=== PATIENT | male | born 1960 | race Caucasian/White ===

== ENCOUNTER 2021-03-16 12:10 | Inpatient (IN) ==
[2021-03-16 13:45] LABS: Hematocrit (blood only) 39.3 % (42-52); Hemoglobin 13.4 g/dL (14.0-18.0); Mean Corpuscular Hemoglobin 31.2 pg (25-34); Mean Corpuscular Hgb Conc 34.1 g/dL (32-36); Mean Corpuscular Volume 91.4 fL (80-100); Mean Platelet Volume 10.6 fL (7.4-10.4); Platelet Count 236 K/uL (130-400); RDW Coefficient of Variation 16.9 % (11.5-14.5)
--- NOTE | 2021-03-16 13:49 | CT Scan Report ---
CT head/brain wo con Clinical Indication: MN ^B12 ^ams, hx dementia . Technique: Contiguous axial CT images of the head were acquired from the base of the skull to the elijah manda without intravenous contrast administration. Images were viewed in brain, subdural and bone windo ws. Automated dose lowering techniques and/or adjustment according to patient size were utilized for this exam. Comparison: None available at the time of this dictation. Findings: The ventricles, basal cisterns, and cerebral sulci are normal. There is no acute intracranial hemorrh age or evidence of acute territorial infarction. Neither mass effect, shift of the midline structures , nor abnormal extra-axial fluid collections are shown. Imaged portions of the paranasal sinuses and mastoid air cells are clear. The orbits appear normal. There are no acute fractures of the calvaria or scalp swelling. Impression: No acute intracranial hemorrhage, evidence of acute territorial infarction, or other acute intracrani al disease process. ACT 112: Negative or not required by law. Electronically signed by: David Mane M.D. 03/16/2021 1:47 PM
[2021-03-16 14:06] LABS: ALC (manual) 1.02 K/uL (1.2-3.4); ANC (manual) 8.18 K/uL (1.4-6.5); Eosinophils # (manual) 0.25 K/uL (0-0.5); Eosinophils % (manual) 2.6 %; Lymphocytes # (manual) 1.02 K/uL (1.2-3.4); Lymphocytes % (manual) 10.4 %; Monocytes # (manual) 0.34 K/uL (0.11-0.59); Monocytes % (manual) 3.5 %; Neutrophils # (manual) 8.18 K/uL (1.4-6.5); Neutrophils % (manual) 83.5 %; Target Cells 1+
[2021-03-16 14:09] LABS: Alanine Aminotransferase 158 U/L (12-78); Albumin Level 2.4 gm/dl (3.4-5.0); Aspartate Aminotransferase 331 U/L (15-37); BUN Creatinine Ratio 20.6 (10-20); Blood Urea Nitrogen 15 mg/dl (7-18); Calcium 8.9 mg/dl (8.5-10.1); Carbon Dioxide 23 mmol/L (21-32); Chloride 99 mmol/L (98-107); Est GFR (African American) 117.5 ml/min; Est GFR (Non-African American) 101.4 ml/min; Glucose 124 mg/dl (70-99); Lipase 208 U/L (73-393); Magnesium 2.2 mg/dl (1.8-2.4); Potassium 4.1 mmol/L (3.5-5.1); Sodium 131 mmol/L (136-145)
[2021-03-16 14:14] LABS: Albumin Globulin Ratio 0.5 (0.9-2); Alkaline Phosphatase 526 U/L (45-117); Globulin 4.5 gm/dl (2.5-4.0); Total Protein 6.9 gm/dl (6.4-8.2); Troponin I < 0.015 ng/ml (0-0.045)
--- NOTE | 2021-03-16 14:17 | Emergency Department Note ---
History of Present Illness General Chief complaint: Confusion Stated complaint: AMS Time Seen by Provider: 03/16/21 12:55 Source: patient Mode of arrival: EMS Limitations: altered mental status History of Present Illness Provider complaint: aggressive, ams Maximum Pain Intensity: 5 Associated symptoms: + denies other symptoms Treatments prior to arrival: none This is a 61 yo male who presents to the emergency department via EMS due to altered mental status and agitation. Per EMS patient was combative in the dentist office earlier today, went home, was becoming increasingly aggressive and family contacted 911. Patient does have a history of dementia and aggressive behavior. Patient calm and cooperative here on arrival. Patient states he is here "to get steak and eggs". Patient did know he was in the hospital and it was 2020, otherwise confused to questions of orientation and uncertain of today's events or why he is here. Patient denies any concern for pain, injury, or illness. Pt seen during a time of high acuity and national emergency pandemic while wearing PPE. Home Medications Medication Instructions Recorded Confirmed Type melatonin 1 mg tablet 1 mg PO HS #90 tab 03/13/21 03/13/21 Rx pimavanserin 34 mg capsule 34 mg PO DAILY 03/13/21 03/13/21 History (Nuplazid) Allergies Allergy/AdvReac Type Severity Reaction Status Date / Time haloperidol Allergy Severe LETHARGIC Unverified 03/13/21 15:12 propranolol Allergy Unknown Verified 03/13/21 15:12 alprazolam AdvReac Unknown Verified 03/13/21 15:12 clonazepam AdvReac Unknown Verified 03/13/21 15:12 donepezil AdvReac Unknown Verified 03/13/21 15:12 fluvoxamine AdvReac Unknown Verified 03/13/21 15:12 hydroxyzine AdvReac Unknown Verified 03/13/21 15:12 lorazepam AdvReac Unknown Verified 03/13/21 15:12 oxcarbazepine AdvReac Unknown Verified 03/13/21 15:12 risperidone AdvReac Unknown Verified 03/13/21 15:12 tramadol AdvReac Unknown Verified 03/13/21 15:12 trihexyphenidyl AdvReac Unknown Verified 03/13/21 15:12 Past Med/Surg History Medical History (Updated 03/17/21 @ 19:17 by Manasa Rocha DO) Acute encephalopathy Depression with anxiety Essential tremor Hilar mass Lewy body dementia with behavioral disturbance Metastatic disease Sleep disorder Tobacco abuse Surgical History S/P appendectomy S/P tonsillectomy and adenoidectomy Family History Sister Brain tumor Breast cancer Diabetes Mother Cancer Father Cancer Social History Smoking Status: Unknown if ever smoked Preferred Language: Turkish Communication Ability: Effective Tree 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 Required: No Current Living Situation: Family Feels Safe at Home: Yes Safety Concerns: Feels Safe At This Time Assistive Devices: None Review of Systems A total of 10 systems reviewed and were otherwise negative All systems reviewed & are unremarkable except as noted in HPI & below Physical Exam Vital Signs Vital Signs - 24 hr 03/16/21 12:29 03/16/21 12:32 03/16/21 14:16 Temperature 37 C Temperature Source Oral Pulse Rate 87 Pulse Rate [Apical] 88 75 Respiratory Rate 22 22 16 Respiratory Effort / Characteristics Non-Labored Respiratory Depth Normal Normal Blood Pressure 117/87 Blood Pressure Mean 97 Pulse Oximetry 97 98 98 Oxygen Delivery Method Room Air Sepsis Recent Fever Within 48 Hours No Sepsis New/Unexplained Change in Mental Status No Sepsis Action Taken by Nursing No Action Required GENERAL: alert, well appearing, well nourished, no distress, non-toxic EYE EXAM: normal conjunctiva, PERRL and EOM's grossly intact OROPHARYNX: no exudate, no erythema, lips, buccal mucosa, and tongue normal and mucous membranes are moist NECK: supple, no nuchal rigidity, no adenopathy, non-tender LUNGS: Clear to auscultation. Normal chest wall mechanics, no w/r/r HEART: no murmurs, S1 normal and S2 normal ABDOMEN: abdomen soft, non-tender, normo-active bowel sounds, no masses, no rebound or guarding. BACK: Back is symmetrical on inspection and there is no deformity, no midline tenderness, no CVA tenderness. SKIN: no rashes and no bruising UPPER EXTREMITIES: upper extremities are grossly normal. FROM, nml pulses b/l. LOWER EXTREMITIES: No pitting edema. FROM, nml pulses b/l. NEURO EXAM: Cooperative but confused, cranial nerves II-XII grossly intact, normal speech, no gross weakness of arms, no gross weakness of legs. Gross sensation intact. Course Course 1405: Discussed with Cristina. Hasn't been sleeping well for a week. Has an active dental infection, just started penicillin 500 mg this am at dentists office. She states due to his aggressive episodes they feel they are unable to care for him at this time. Administered Medications Heparin Sodium (Porcine) (Heparin Sod 5,000 Unit/0.5 Ml Vial) 5,000 units SQ Q12 MYRNA Stop: 04/15/21 21:55 Last Admin: 03/17/21 10:13 Dose: 5,000 units Documented by: [id number] Admin: 03/16/21 23:32 Dose: 5,000 units Documented by: [id number] Ampicillin Sodium/Sulbactam Sodium 1,500 mg/ Sodium Chloride 104 mls @ 200 mls/hr IV Q6H MYRNA; Protocol Stop: 03/26/21 18:59 Last Infusion: 03/17/21 17:47 Dose: 0 mls/hr Documented by: [id number] Admin: 03/17/21 17:04 Dose: 200 mls/hr Documented by: [id number] Infusion: 03/17/21 11:01 Dose: 0 mls/hr Documented by: [id number] Admin: 03/17/21 10:13 Dose: 200 mls/hr Documented by: [id number] Infusion: 03/17/21 02:41 Dose: 0 mls/hr Documented by: [id number] Admin: 03/17/21 02:09 Dose: 200 mls/hr Documented by: [id number] Infusion: 03/16/21 20:30 Dose: 0 mls/hr Documented by: [id number] Admin: 03/16/21 19:49 Dose: 200 mls/hr Documented by: [id number] Discontinued Medications Diphenhydramine HCl (Diphenhydramine 50 Mg/Ml Vial) 25 mg IV NOW STA Stop: 03/16/21 14:59 Last Admin: 03/16/21 15:05 Dose: 25 mg Documented by: [id number] Lorazepam (Ativan) 1 mg in 2 mls @ 2 mls/min IV NOW STA Stop: 03/16/21 15:26 Last Admin: 03/16/21 15:35 Dose: 2 mls/min Documented by: [id number] Lorazepam (Ativan) 1 mg in 2 mls @ 2 mls/min IV NOW STA Stop: 03/16/21 17:23 Last Admin: 03/16/21 17:38 Dose: 2 mls/min Documented by: [id number] Ampicillin Sodium/Sulbactam Sodium 1,500 mg/ Sodium Chloride 104 mls @ 200 mls/hr IV NOW ONE; Protocol Stop: 03/16/21 19:31 Last Admin: 03/16/21 19:51 Dose: Not Given Documented by: [id number] Lorazepam (Ativan) 1 mg in 2 mls @ 2 mls/min IV NOW STA Stop: 03/17/21 03:17 Last Admin: 03/17/21 04:29 Dose: 2 mls/min Documented by: [id number] Lorazepam (Ativan) 0.5 mg in 1 mls @ 1 mls/min IV NOW STA Stop: 03/17/21 13:44 Last Admin: 03/17/21 14:10 Dose: 1 mls/min Documented by: [id number] Lorazepam (Lorazepam 2 Mg/4 Ml Vial) Confirm Administered Dose 2 mg .ROUTE .STK- MED ONE Stop: 03/16/21 15:31 Last Admin: 03/16/21 15:35 Dose: Not Given Documented by: [id number] Medical Decision Making Differential Diagnosis Differential diagnoses includes but is not limited to toxic, metabolic, infectious, traumatic, cardiac, neurologic, hematologic, psychiatric and inflammatory etiologies. Medical Records Attestation: I reviewed the patient's medical records. Home Medications Current Medication List: was personally reviewed by me Laboratory Data Attestation: I reviewed the patient's lab results. Result diagrams: 03/17/21 06:06 03/17/21 06:06 Lab Results 03/16/21 03/16/21 03/16/21 Range/Units 13:20 13:20 13:20 WBC 9.80 (4.8-10.8) K/uL RBC 4.30 L (4.7-6.1) M/uL Hgb 13.4 L (14.0-18.0) g/dL Hct 39.3 L (42-52) % MCV 91.4 (80-100) fL MCH 31.2 (25-34) pg MCHC 34.1 (32-36) g/dL RDW Std Deviation 56.0 H (36.4-46.3) fL RDW Coeff of Steve 16.9 H (11.5-14.5) % Plt Count 236 (130-400) K/uL MPV 10.6 H (7.4-10.4) fL Neutrophils % (Manual) 83.5 % Lymphocytes % (Manual) 10.4 % Monocytes % (Manual) 3.5 % Eosinophils % (Manual) 2.6 % Neutrophils # (Manual) 8.18 H (1.4-6.5) K/uL Total Absolute Neuts 8.18 H (1.4-6.5) K/uL Lymphocytes # (Manual) 1.02 L (1.2-3.4) K/uL Total Abs Lymphocytes 1.02 L (1.2-3.4) K/uL Monocytes # (Manual) 0.34 (0.11-0.59) K/uL Eosinophils # (Manual) 0.25 (0-0.5) K/uL Target Cells 1+ PT 10.3 (9.0-12.0) Seconds INR 1.0 (0.9-1.1) Sodium 131 L (136-145) mmol/L Potassium 4.1 (3.5-5.1) mmol/L Chloride 99 (98-107) mmol/L Carbon Dioxide 23 (21-32) mmol/L Anion Gap 9.0 (3-11) BUN 15 (7-18) mg/dl Creatinine 0.72 (0.6-1.4) mg/dl Est Cr Clr Drug Dosing Not Reportable Est GFR ( Amer) 117.5 ml/min Est GFR (Non-Af Amer) 101.4 ml/min BUN/Creatinine Ratio 20.6 H (10-20) Glucose 124 H (70-99) mg/dl Calcium 8.9 (8.5-10.1) mg/dl Magnesium 2.2 (1.8-2.4) mg/dl Total Bilirubin 6.0 H (0.2-1) mg/dl AST 331 H (15-37) U/L ALT 158 H (12-78) U/L Alkaline Phosphatase 526 H (45-117) U/L Ammonia (11-32) umol/L Troponin I < 0.015 (0-0.045) ng/ml Total Protein 6.9 (6.4-8.2) gm/dl Albumin 2.4 L (3.4-5.0) gm/dl Globulin 4.5 H (2.5-4.0) gm/dl Albumin/Globulin Ratio 0.5 L (0.9-2) Lipase 208 (73-393) U/L TSH 1.180 (0.300-4.500) uIu/ml Urine Color Urine Appearance (Clear) Urine pH (4.5-7.5) Ur Specific Wellman (1.000-1.030) Urine Protein (Negative) Urine Glucose (UA) (Negative) Urine Ketones (Negative) Urine Blood (Negative) Urine Nitrite (Negative) Urine Bilirubin (Negative) Urine Urobilinogen (Negative) Ur Leukocyte Esterase (Negative) COVID-19 Eval Order SARS-CoV-2 (PCR) (Negative) 03/16/21 03/16/21 03/16/21 Range/Units 13:50 18:08 18:08 WBC (4.8-10.8) K/uL RBC (4.7-6.1) M/uL Hgb (14.0-18.0) g/dL Hct (42-52) % MCV (80-100) fL MCH (25-34) pg MCHC (32-36) g/dL RDW Std Deviation (36.4-46.3) fL RDW Coeff of Steve (11.5-14.5) % Plt Count (130-400) K/uL MPV (7.4-10.4) fL Neutrophils % (Manual) % Lymphocytes % (Manual) % Monocytes % (Manual) % Eosinophils % (Manual) % Neutrophils # (Manual) (1.4-6.5) K/uL Total Absolute Neuts (1.4-6.5) K/uL Lymphocytes # (Manual) (1.2-3.4) K/uL Total Abs Lymphocytes (1.2-3.4) K/uL Monocytes # (Manual) (0.11-0.59) K/uL Eosinophils # (Manual) (0-0.5) K/uL Target Cells PT (9.0-12.0) Seconds INR (0.9-1.1) Sodium (136-145) mmol/L Potassium (3.5-5.1) mmol/L Chloride (98-107) mmol/L Carbon Dioxide (21-32) mmol/L Anion Gap (3-11) BUN (7-18) mg/dl Creatinine (0.6-1.4) mg/dl Est Cr Clr Drug Dosing Est GFR ( Amer) ml/min Est GFR (Non-Af Amer) ml/min BUN/Creatinine Ratio (10-20) Glucose (70-99) mg/dl Calcium (8.5-10.1) mg/dl Magnesium (1.8-2.4) mg/dl Total Bilirubin (0.2-1) mg/dl AST (15-37) U/L ALT (12-78) U/L Alkaline Phosphatase (45-117) U/L Ammonia 46.1 H (11-32) umol/L Troponin I (0-0.045) ng/ml Total Protein (6.4-8.2) gm/dl Albumin (3.4-5.0) gm/dl Globulin (2.5-4.0) gm/dl Albumin/Globulin Ratio (0.9-2) Lipase (73-393) U/L TSH (0.300-4.500) uIu/ml Urine Color Dark Yellow Urine Appearance Clear (Clear) Urine pH 6.0 (4.5-7.5) Ur Specific Wellman 1.015 (1.000-1.030) Urine Protein Negative (Negative) Urine Glucose (UA) Negative (Negative) Urine Ketones Negative (Negative) Urine Blood Negative (Negative) Urine Nitrite Negative (Negative) Urine Bilirubin 2+ H (Negative) Urine Urobilinogen Positive H (Negative) Ur Leukocyte Esterase Negative (Negative) COVID-19 Eval Order Covid19 at [facility] SARS-CoV-2 (PCR) (Negative) 03/16/21 Range/Units 18:08 WBC (4.8-10.8) K/uL RBC (4.7-6.1) M/uL Hgb (14.0-18.0) g/dL Hct (42-52) % MCV (80-100) fL MCH (25-34) pg MCHC (32-36) g/dL RDW Std Deviation (36.4-46.3) fL RDW Coeff of Steve (11.5-14.5) % Plt Count (130-400) K/uL MPV (7.4-10.4) fL Neutrophils % (Manual) % Lymphocytes % (Manual) % Monocytes % (Manual) % Eosinophils % (Manual) % Neutrophils # (Manual) (1.4-6.5) K/uL Total Absolute Neuts (1.4-6.5) K/uL Lymphocytes # (Manual) (1.2-3.4) K/uL Total Abs Lymphocytes (1.2-3.4) K/uL Monocytes # (Manual) (0.11-0.59) K/uL Eosinophils # (Manual) (0-0.5) K/uL Target Cells PT (9.0-12.0) Seconds INR (0.9-1.1) Sodium (136-145) mmol/L Potassium (3.5-5.1) mmol/L Chloride (98-107) mmol/L Carbon Dioxide (21-32) mmol/L Anion Gap (3-11) BUN (7-18) mg/dl Creatinine (0.6-1.4) mg/dl Est Cr Clr Drug Dosing Est GFR ( Amer) ml/min Est GFR (Non-Af Amer) ml/min BUN/Creatinine Ratio (10-20) Glucose (70-99) mg/dl Calcium (8.5-10.1) mg/dl Magnesium (1.8-2.4) mg/dl Total Bilirubin (0.2-1) mg/dl AST (15-37) U/L ALT (12-78) U/L Alkaline Phosphatase (45-117) U/L Ammonia (11-32) umol/L Troponin I (0-0.045) ng/ml Total Protein (6.4-8.2) gm/dl Albumin (3.4-5.0) gm/dl Globulin (2.5-4.0) gm/dl Albumin/Globulin Ratio (0.9-2) Lipase (73-393) U/L TSH (0.300-4.500) uIu/ml Urine Color Urine Appearance (Clear) Urine pH (4.5-7.5) Ur Specific Wellman (1.000-1.030) Urine Protein (Negative) Urine Glucose (UA) (Negative) Urine Ketones (Negative) Urine Blood (Negative) Urine Nitrite (Negative) Urine Bilirubin (Negative) Urine Urobilinogen (Negative) Ur Leukocyte Esterase (Negative) COVID-19 Eval Order SARS-CoV-2 (PCR) NEGATIVE (Negative) Imaging Data Radiologist's Impression: Head CT 03/16/21 13:10 CT head/brain wo con Clinical Indication: MN ^B12 ^ams, hx dementia . Technique: Contiguous axial CT images of the head were acquired from the base of the skull to the vertex without intravenous contrast administration. Images were viewed in brain, subdural and bone windows. Automated dose lowering techniques and/or adjustment according to patient size were utilized for this exam. Comparison: None available at the time of this dictation. Findings: The ventricles, basal cisterns, and cerebral sulci are normal. There is no acute intracranial hemorrhage or evidence of acute territorial infarction. Neither mass effect, shift of the midline structures, nor abnormal extra-axial fluid collections are shown. Imaged portions of the paranasal sinuses and mastoid air cells are clear. The o rbits appear normal. There are no acute fractures of the calvaria or scalp swelling. Impression: No acute intracranial hemorrhage, evidence of acute territorial infarction, or other acute intracranial disease process. ACT 112: Negative or not required by law. Electronically signed by: David Mane M.D. 03/16/2021 1:47 PM US abdomen limited HISTORY: 61 years-old Male abn lft's acutely elevated LFTs COMPARISON: None TECHNIQUE: Multiple real-time sonographic images of the abdominal right upper q uadrant were obtained assessing grayscale appearance and color flow FINDINGS: Study is limited secondary to patient movement throughout the study. The visualized pancreas is unremarkable. No pancreatic ductal dilation. Diffusely heterogeneous liver with suggestion of innumerable lesions including a discrete 2 cm lesion of the left hepatic lobe on image 10. Associated marginal nodularity of the liver. Contracted gallbladder with a shadowing gallstone noted at the fundus. Bladder wall thickening is likely secondary to partial distention. Trace pericholecystic fluid. Common bile duct measures 7 mm. The imaged right kidney is unremarkable without hydronephrosis. IMPRESSION: 1. Diffuse heterogeneity of the liver with marginal nodularity. 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 Cirrhotic liver with fibrotic changes considered less likely. Nonemergent oncologic follow-up is needed. 2. Contracted gallbladder with cholelithiasis. ACT 112: Negative or not required by law. The above report was generated using voice recognition software. It may contain grammatical, syntax or spelling errors. Electronically signed by: Peyman Maradiaga M.D. 03/16/2021 5:29 PM MDM Narrative Patient presented due to acute agitation and confusion in the setting of a history of Lewy body dementia with a prior history of behavioral disturbances also. Limited information as the patient cannot provide any history, the patient's ex- who helps to care for him stated that they were concerned that they can no longer care for him at home. She had not noticed any other recent changes in him until he became aggressive at the dentist earlier this morning. Patient was started on antibiotics. Patient did require Ativan in the emergency department to help him remain calm and follow instructions. Patient hemodynamically stable. Labs revealed abnormal LFTs of unclear etiology. No prior history and review of EMR. Patient sent for ultrasound which showed an abnormal liver with questionable metastatic disease. Due to need for additional evaluation of his altered mentation and abnormal LFTs and liver imaging, case discussed with hospitalist for additional evaluation and management. Ammonia added but was still pending at the time of my discussion with the hospitalist. They intend to add additional labs as well. CT of the head unremarkable. An order was placed for continuous cardiac monitoring. The monitor shows a rate of _80_ with __normal sinus rhythm. Impression & Plan Altered mental status, Elevated liver enzymes, Lewy body dementia with behavioral disturbance Discharge Plan Visit Data Chief Complaint: Confusion Stated Complaint: AMS ED Provider: Manasa Rocha Discharge Problem: Altered mental status, Elevated liver enzymes, Lewy body dementia with behavioral disturbance Patient Disposition: Admitted As Inpatient Discharge Instructions Interventions: ED Discharge Assessment Last Done: 03/16/21 21:16 Discharge Problem: Altered mental status Qualifiers: Altered mental status type: unspecified Qualified Code(s): R41.82 - Altered mental status, unspecified
[2021-03-16 14:45] LABS: Appearance Urine Clear (Clear); Blood Urine Negative (Negative); Color Urine Dark Yellow; Glucose Urine UA Negative (Negative); Ketones Urine Negative (Negative); Leukocyte Esterase Urine Negative (Negative); Nitrite Urine Negative (Negative); Protein Urine Negative (Negative); Specific Gravity Urine 1.015 (1.000-1.030); Urobilinogen Urine Positive (Negative)
[2021-03-16 14:53] LABS: Bilirubin Urine 2+ (Negative)
[2021-03-16] MEDS ORDERED: diphenhydrAMINE 50 MG/ML VIAL IV STA (14:58)
[2021-03-16] MEDS ORDERED: LORazepam 1 MG/2 ML VIAL IV STA ×2 (15:25→17:22)
[2021-03-16] MEDS ORDERED: LORazepam 2 MG/4 ML VIAL ONE (15:30)
--- NOTE | 2021-03-16 17:30 | Ultrasound Report ---
US abdomen limited HISTORY: 61 years-old Male abn lft's acutely elevated LFTs COMPARISON: None TECHNIQUE: Multiple real-time sonographic images of the abdominal right upper quadrant were obtained assessing grayscale appearance and color flow FINDINGS: Study is limited secondary to patient movement throughout the study. The visualized pancreas is unremarkable. No pancreatic ductal dilation. Diffusely heterogeneous liver with suggestion of innumerable lesions including a discrete 2 cm lesion of the left hepatic lobe on image 10. Associated marginal nodularity of the liver. Contracted gallbladder with a shadowing gallstone noted at the fundus. Bladder wall thickening is lik nina secondary to partial distention. Trace pericholecystic fluid. Common bile duct measures 7 mm. The imaged right kidney is unremarkable without hydronephrosis. IMPRESSION: 1. Diffuse heterogeneity of the liver with marginal nodularity. Findings are suspicious for multifoca l hepatic metastasis with pseudocirrhosis. Cirrhotic liver with fibrotic changes considered less like ly. Nonemergent oncologic follow-up is needed. 2. Contracted gallbladder with cholelithiasis. ACT 112: Negative or not required by law. The above report was generated using voice recognition software. It may contain grammatical, syntax o r spelling errors. Electronically signed by: Peyman Maradiaga M.D. 03/16/2021 5:29 PM
[2021-03-16] MEDS ORDERED: AMPICILLIN/SULBACTAM SOD 1,500 MG in 0.9 % SODIUM CHLORIDE 100 ML IV ONE (19:00)
--- NOTE | 2021-03-16 19:45 | History & Physical Report ---
Date of Service March 16, 2021 Assessment & Plan (1) Elevated liver enzymes: Plan: Presumed acute elevation of liver enzymes DDX: Acute liver failure vs. metastatic liver cancer with unknown primary vs. viral hepatitis vs. drug induced failure vs. biliary - INR- 1.0 - Tylenol level- unable to be performed secondary to icterus - normal glycemia, HCO3 normal, ammonia mildly elevated 46, albumin low at 2.4 - AST ALT elevated 2:1 does not drink, elevated alphos, total bilirubin 6.0 - Grade I-II encephalopathy with mild jaundice - Viral labs to include hepatitis A,B,C- ceruloplasmin, AFP, lipids and ferritin - GI consult placed - liver ultrasound performed- see above results - MELD 18 - CT chest abd pelvis w/o contrast if patient able to lay still and tolerate without further sedation (2) Metabolic encephalopathy: Plan: Appears Grade I encephalopathy at baseline - Ammonia 46 not acute to treat at this time - Likely related to both Lewy body dementia and elevated liver enzymes - Patient is more calm at this time - Haldol PRN (3) Abnormal CXR: Plan: Concern for primary oncological process remains at top of diagnostics- consult pulmonary likely 1. Nodular opacities of the left midlung measure up to 1.5 cm. 2. Bilateral hilar enlargement suggestive of adenopathy. Correlation with follow-up chest CT recommended. (4) Tobacco dependence: Plan: Current smoker 2-3 packs per day for many years per X- - CXR as above (5) Lewy body dementia with behavioral disturbance: Plan: As above- - Previously yon Memantine with planned switch to Nuplazid - Neurology consult may provide benefit after initial workup for the above completed (6) Infected tooth: Plan: Unable to assess- reportedly given ABX from dentist today - Unasyn 1.5 GM now then q6 - ? 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 Patient was brought in today via EMS from home secondary to delirium, combativeness. The patient initially went to the dentist for concern for an infected tooth, upon radiologically imaging he became combative, argumentative. He was given a prescription for antibiotics per his x- but did not get them filled or started. Per the X- the patient has been becoming more combative and delirious over the past 2 weeks he has been incontinent of stool and urine as well. He has been having more hallucinations and seeing things around the house and in his food. This is consistent with his neurology appointment on 03/13/21. She thinks he may have a more yellow tint to his skin and eyes when directly asked about this. Overall the patient does not have a PCP, follows with [facility] neurology for Lewy body dementia with hallucinations. He was to start Nuplazid which he has not started yet per the as he was waiting for his labs to return. In the EMD the patient had routine lab draws performed which revealed which appears to be an acute elevation of his LFTs (no comparison since 2016)- AST 331, ALT 158, ALK phos 526, Ammonia 46.1, lipase normal. He subsequently underwent a ultrasound of the abdomen and pelvis- Diffuse heterogeneity of the liver with marginal nodularity. 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 Cirrhotic liver with fibrotic changes- also interpreted as a contracted gallbladder with cholelithiasis and trace pericholecystic fluid. CBD 7mm and discrete 2cm lesion of the left hepatic lobe. Upon return from CT scan patient became combative and delirious and was given Benadryl 25mg IV, Lorazepam 4 mg total. Patient did wake up for exam, he is encephalopathic but was cooperative. He does endorse abdominal pain in upper quadrants bilaterally, and unable to look at dentition. No lesions noted on lower legs or chest. Patient will be admitted for evaluation of his liver enzymes, will place on Unasyn for reported infected tooth, will send off hepatitis panel and EBV, CMV, CA 19. Obtain CXR for initial screening of lung broussard further imaging as makayla anted. Will consult gastroenterology. Unsure of his bipoloar history as this was noted in neurology note as remote history and he is not on any medications. COVID test on admission was: NEGATIVE Allergies Allergy/AdvReac Type Severity Reaction Status Date / Time haloperidol Allergy Severe LETHARGIC Unverified 03/13/21 15:12 propranolol Allergy Unknown Verified 03/13/21 15:12 alprazolam AdvReac Unknown Verified 03/13/21 15:12 clonazepam AdvReac Unknown Verified 03/13/21 15:12 donepezil AdvReac Unknown Verified 03/13/21 15:12 fluvoxamine AdvReac Unknown Verified 03/13/21 15:12 hydroxyzine AdvReac Unknown Verified 03/13/21 15:12 lorazepam AdvReac Unknown Verified 03/13/21 15:12 oxcarbazepine AdvReac Unknown Verified 03/13/21 15:12 risperidone AdvReac Unknown Verified 03/13/21 15:12 tramadol AdvReac Unknown Verified 03/13/21 15:12 trihexyphenidyl AdvReac Unknown Verified 03/13/21 15:12 Home Medications Medication Instructions Recorded Confirmed Type melatonin 1 mg tablet 1 mg PO HS #90 tab 03/13/21 03/13/21 Rx pimavanserin 34 mg capsule 34 mg PO DAILY 03/13/21 03/13/21 History (Nuplazid) Past Med/Surg History Medical History (Updated 03/17/21 @ 19:31 by Rika Lee PA-C) Acute encephalopathy Depression with anxiety Essential tremor Hilar mass Lewy body dementia with behavioral disturbance Metastatic disease Sleep disorder Tobacco abuse Surgical History S/P appendectomy S/P tonsillectomy and adenoidectomy Family History Sister Brain tumor Breast cancer Diabetes Mother Cancer Father Cancer Social History Smoking Status: Unknown if ever smoked Preferred Language: Iraqi Communication Ability: Effective 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 Current Living Situation: Family Feels Safe at Home: Yes Safety Concerns: Feels Safe At This Time Assistive Devices: Glasses Review of Systems Review of Systems: Unable to perform secondary to sedation - information obtained by X- via phone REVIEW OF SYSTEMS: Constitutional:(+) hallucinations, delirium Eyes: No diplopia, no worsening or blurred vision ENT: (+) tooth pain, normal hearing Respiratory: No cough, sputum, dyspnea at rest or on exertion Cardiovascular: No chest pain, tightness or palpitations Abdomen: No pain, nausea, vomiting, diarrhea or constipation Musculoskeletal: No joint pain, calf pain, swelling Neurologic: (+) short term memory, confusion, distractions Psychiatric: (+) anxiety Skin: No rash or itch Physical Exam Physical Exam: PHYSICAL EXAM: General: sedated, follows simple commands Head: Normocephalic, atraumatic ENT: PERRLA, mild scleral icterus Neuro: AAO x1 to person , speech disoriented, strength intact bilaterally 5/5, withdraws to pain Chest: equal rise and fall of the chest, no accessory muscle use, expiratory wheeze on auscultation, on room air, Cardiac: Regular rate and rhythm, skin warm dry, cap refill <3 seconds, peripheral pulses +2 no JVD, no murmur, no edema GI: liver enlarged, patient withdraws with palpation to upper abdomen, soft throughout : Spontaneously voiding, UA negative Psych: sedated disoriented, encephalopathic Skin: no rash or erythema Results & Data Results & Data ([facility]) Vital Signs (Past 12 Hours) Vital Signs Temp Pulse Pulse Resp BP BP Pulse Ox 03/16/21 18:17 75 15 139/83 98 03/16/21 14:16 75 16 98 03/16/21 12:32 88 22 98 03/16/21 12:29 37 C 87 22 117/87 97 Laboratory Results Abnormal lab results 03/16/21 03/16/21 03/16/21 Range/Units 13:20 13:20 13:50 RBC 4.30 L (4.7-6.1) M/uL Hgb 13.4 L (14.0-18.0) g/dL Hct 39.3 L (42-52) % RDW Std Deviation 56.0 H (36.4-46.3) fL RDW Coeff of Steve 16.9 H (11.5-14.5) % MPV 10.6 H (7.4-10.4) fL Neutrophils # (Manual) 8.18 H (1.4-6.5) K/uL Total Absolute Neuts 8.18 H (1.4-6.5) K/uL Lymphocytes # (Manual) 1.02 L (1.2-3.4) K/uL Total Abs Lymphocytes 1.02 L (1.2-3.4) K/uL Sodium 131 L (136-145) mmol/L BUN/Creatinine Ratio 20.6 H (10-20) Glucose 124 H (70-99) mg/dl Total Bilirubin 6.0 H (0.2-1) mg/dl AST 331 H (15-37) U/L ALT 158 H (12-78) U/L Alkaline Phosphatase 526 H (45-117) U/L Ammonia (11-32) umol/L Albumin 2.4 L (3.4-5.0) gm/dl Globulin 4.5 H (2.5-4.0) gm/dl Albumin/Globulin Ratio 0.5 L (0.9-2) Urine Bilirubin 2+ H (Negative) Urine Urobilinogen Positive H (Negative) 03/16/21 Range/Units 18:08 RBC (4.7-6.1) M/uL Hgb (14.0-18.0) g/dL Hct (42-52) % RDW Std Deviation (36.4-46.3) fL RDW Coeff of Steve (11.5-14.5) % MPV (7.4-10.4) fL Neutrophils # (Manual) (1.4-6.5) K/uL Total Absolute Neuts (1.4-6.5) K/uL Lymphocytes # (Manual) (1.2-3.4) K/uL Total Abs Lymphocytes (1.2-3.4) K/uL Sodium (136-145) mmol/L BUN/Creatinine Ratio (10-20) Glucose (70-99) mg/dl Total Bilirubin (0.2-1) mg/dl AST (15-37) U/L ALT (12-78) U/L Alkaline Phosphatase (45-117) U/L Ammonia 46.1 H (11-32) umol/L Albumin (3.4-5.0) gm/dl Globulin (2.5-4.0) gm/dl Albumin/Globulin Ratio (0.9-2) Urine Bilirubin (Negative) Urine Urobilinogen (Negative) Diagnostic Findings Head CT 03/16/21 13:10 CT head/brain wo con Clinical Indication: MN ^B12 ^ams, hx dementia . Technique: Contiguous axial CT images of the head were acquired from the base of the skull to the vertex without intravenous contrast administration. Images were viewed in brain, subdural and bone windows. Automated dose lowering techniques and/or adjustment according to patient size were utilized for this exam. Comparison: None available at the time of this dictation. Findings: The ventricles, basal cisterns, and cerebral sulci are normal. There is no acute intracranial hemorrhage or evidence of acute territorial infarction. Neither mass effect, shift of the midline structures, nor abnormal extra-axial fluid collections are shown. Imaged portions of the paranasal sinuses and mastoid air cells are clear. The orbits appear normal. There are no acute fractures of the calvaria or scalp swelling. Impression: No acute intracranial hemorrhage, evidence of acute territorial infarction, or other acute intracranial disease process. ACT 112: Negative or not required by law. Electronically signed by: David Mane M.D. 03/16/2021 1:47 PM Abdomen Ultrasound 03/16/21 14:18 US abdomen limited HISTORY: 61 years-old Male abn lft's acutely elevated LFTs COMPARISON: None TECHNIQUE: Multiple real-time sonographic images of the abdominal right upper quadrant were obtained assessing grayscale appearance and color flow FINDINGS: Study is limited secondary to patient movement throughout the study. The visualized pancreas is unremarkable. No pancreatic ductal dilation. Diffusely heterogeneous liver with suggestion of innumerable lesions including a discrete 2 cm lesion of the left hepatic lobe on image 10. Associated marginal nodularity of the liver. Contracted gallbladder with a shadowing gallstone noted at the fundus. Bladder wall thickening is likely secondary to partial distention. Trace pericholecystic fluid. Common bile duct measures 7 mm. The imaged right kidney is unremarkable without hydronephrosis. IMPRESSION: 1. Diffuse heterogeneity of the liver with marginal nodularity. 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 Cirrhotic liver with fibrotic changes considered less likely. Nonemergent oncologic follow-up is needed. 2. Contracted gallbladder with cholelithiasis. ACT 112: Negative or not required by law. The above report was generated using voice recognition software. It may contain grammatical, syntax or spelling errors. Electronically signed by: Peyman Maradiaga M.D. 03/16/2021 5:29 PM Medications Administered Home Medications melatonin 1 mg tablet 1 mg PO HS #90 tab 03/13/21 [Rx Confirmed 03/13/21] pimavanserin 34 mg capsule (Nuplazid) 34 mg PO DAILY 03/13/21 [History Confirmed 03/13/21] Active Medications Ampicillin Sodium/Sulbactam Sodium 1,500 mg/ Sodium Chloride 104 mls @ 200 mls/hr IV Q6H MYRNA; Protocol Stop: 03/26/21 18:59 Last Admin: 03/16/21 19:49 Dose: 200 mls/hr Documented by: Ampicillin Sodium/Sulbactam Sodium 1,500 mg/ Sodium Chloride 104 mls @ 200 mls/hr IV Q6H MYRNA; Protocol Stop: 03/26/21 18:59 Last Admin: 03/16/21 19:49 Dose: 200 mls/hr Documented by: [id number] Discontinued Medications Diphenhydramine HCl (Diphenhydramine 50 Mg/Ml Vial) 25 mg IV NOW STA Stop: 03/16/21 14:59 Last Admin: 03/16/21 15:05 Dose: 25 mg Documented by: [id number] Lorazepam (Ativan) 1 mg in 2 mls @ 2 mls/min IV NOW STA Stop: 03/16/21 15:26 Last Admin: 03/16/21 15:35 Dose: 2 mls/min Documented by: [id number] Lorazepam (Ativan) 1 mg in 2 mls @ 2 mls/min IV NOW STA Stop: 03/16/21 17:23 Last Admin: 03/16/21 17:38 Dose: 2 mls/min Documented by: [id number] Ampicillin Sodium/Sulbactam Sodium 1,500 mg/ Sodium Chloride 104 mls @ 200 mls/hr IV NOW ONE; Protocol Stop: 03/16/21 19:31 Last Admin: 03/16/21 19:51 Dose: Not Given Documented by: [id number] Lorazepam (Lorazepam 2 Mg/4 Ml Vial) Confirm Administered Dose 2 mg .ROUTE .STK- MED ONE Stop: 03/16/21 15:31 Last Admin: 03/16/21 15:35 Dose: Not Given Documented by: [id number] ECG Additional Comments: Normal sinus rhythm Normal ECG When compared with ECG of 22-AUG-2015 16:16, No significant change was found Code Status & VTE Plan Code Status CODE: FULL VTE: SCDs, Heparin 5000 sub q q12 VTE Prophylaxis Plan VTE Prophylaxis will be ordered: Yes Supervising Physician Co-Signing Physician Notes Attending addendum: I have physically seen this patient, have supervised the medical residents activities, and agree with the H&P unless as otherwise noted. Assessment and Plan: Elevated liver enzymes- Abnormal LFT work-up ordered Liver metastases/pseudocirrhosis noted on CT Meld score 18 Consult gastroenterology Metabolic encephalopathy- Grade 1 noted at baseline Ammonia level 46 not likely causative and not need to be treated this time Combination of Lewy body dementia and because of liver enzyme abnormalities, may be aggravated by dental infection as well Infected tooth- Unasyn 1.5 g IV every 6 hours Remaining orders and notations as noted PG Care Time/CCT Total # of Minutes Spent Total Time Spent with Patient: Total time spent is greater than 50% in coordination of care (as documented) at patient's floor/unit and/or counseling patient: Coding Level of Care Code 58451 Initial Inpt Care Lvl 3 Diagnoses Lewy body dementia with behavioral disturbance G31.83; F02.81 Elevated liver enzymes R74.8 Metabolic encephalopathy G93.41 Tobacco dependence F17.200 Infected tooth K04.7 Abnormal CXR R93.89
[2021-03-16] MEDS: AMPICILLIN/SULBACTAM SOD 1,500 MG in 0.9 % SODIUM CHLORIDE 100 ML IV SCH (19:49)
--- NOTE | 2021-03-16 21:00 | XRay Report ---
XR chest 1V portable HISTORY: 61 years-old Male evaluate for pulm nodule/cancer- admission acute shortness of breath COMPARISON: Chest radiograph 08/22/2015 TECHNIQUE: Portable AP view of the chest FINDINGS: Azygos lobe and fissure. Mild cardiomegaly. Moderate bilateral hilar enlargement. Left perihilar nodu lar opacities measure up to 1.5 cm. No pneumothorax, pleural effusion or overt pulmonary edema. Degen erative changes of the right and left shoulder. IMPRESSION: 1. Nodular opacities of the left midlung measure up to 1.5 cm. 2. Bilateral hilar enlargement suggestive of adenopathy. Correlation with follow-up chest CT recommen ded. ACT 112: Negative or not required by law. The above report was generated using voice recognition software. It may contain grammatical, syntax o r spelling errors. Electronically signed by: Peyman Maradiaga M.D. 03/16/2021 8:59 PM
[2021-03-16 21:18] LABS: Prothrombin Time 10.3 Seconds (9.0-12.0)
[2021-03-16] MEDS ORDERED: HALOPERIDOL LACTATE 5 MG/ML 1 ML VIAL IM PRN (21:56)
[2021-03-16] MEDS: HEPARIN SOD 5,000 UNIT/0.5 ML VIAL SQ SCH (23:32)
[2021-03-17] MEDS: AMPICILLIN/SULBACTAM SOD 1,500 MG in 0.9 % SODIUM CHLORIDE 100 ML IV SCH ×3 (02:09→17:04)
[2021-03-17] MEDS ORDERED: LORazepam 1 MG/2 ML VIAL IV STA (03:16)
[2021-03-17 06:32] LABS: Hematocrit (blood only) 37.7 % (42-52); Hemoglobin 12.8 g/dL (14.0-18.0); Mean Corpuscular Hemoglobin 31.4 pg (25-34); Mean Corpuscular Volume 92.6 fL (80-100); Mean Platelet Volume 10.6 fL (7.4-10.4); Platelet Count 220 K/uL (130-400); RDW Standard Deviation 58.1 fL (36.4-46.3); Red Blood Count 4.07 M/uL (4.7-6.1); White Blood Count 8.55 K/uL (4.8-10.8)
[2021-03-17 06:43] LABS: Prothrombin Time 10.5 Seconds (9.0-12.0)
[2021-03-17 07:00] LABS: ANC (manual) 6.52 K/uL (1.4-6.5); Alanine Aminotransferase 150 U/L (12-78); Albumin Level 2.1 gm/dl (3.4-5.0); Aspartate Aminotransferase 316 U/L (15-37); BUN Creatinine Ratio 17.6 (10-20); Basophils # (manual) 0.15 K/uL (0-0.2); Basophils % (manual) 1.8 %; Blood Urea Nitrogen 14 mg/dl (7-18); Calcium 8.1 mg/dl (8.5-10.1); Carbon Dioxide 23 mmol/L (21-32); Chloride 106 mmol/L (98-107); Eosinophils # (manual) 0.08 K/uL (0-0.5); Eosinophils % (manual) 0.9 %; Est GFR (African American) 113.1 ml/min; Est GFR (Non-African American) 97.6 ml/min; Glucose 171 mg/dl (70-99); Magnesium 2.3 mg/dl (1.8-2.4); Neutrophils # (manual) 6.52 K/uL (1.4-6.5); Neutrophils % (manual) 76.3 %; Potassium 3.9 mmol/L (3.5-5.1); Sodium 136 mmol/L (136-145)
[2021-03-17 07:20] LABS: Albumin Globulin Ratio 0.5 (0.9-2); Alkaline Phosphatase 485 U/L (45-117); Bilirubin Direct 4.1 mg/dl (0-0.2); Bilirubin,Total 4.4 mg/dl (0.2-1); Chol HDL Ratio 23; Cholesterol 228 mg/dl (0-200); Globulin 4.2 gm/dl (2.5-4.0); HDL Cholesterol 10 mg/dl; LDL Cholesterol Calculated 174 mg/dl; Total Protein 6.3 gm/dl (6.4-8.2); Triglycerides 221 mg/dl (0-150); VLDL Cholesterol 44 mg/dl
--- NOTE | 2021-03-17 08:45 | Hospitalist Progress Note ---
Date of Service March 17, 2021 Assessment & Plan (1) Metastatic disease: Plan: Admitted with elevated LFT/liver failure, presumed acute elevation given patient without PCP and rarely seeks out medical attention. Follows Neuro for hx Lewy Body Dementia, most recently seen 10/4 Lives with ex- and they were working on getting placement for worsening confusion/hallucinations Unfortunately, imaging consistent with diffuse metastatic disease, likely pulmonary as primary CT Chest IMPRESSION: 1. A 2.2 cm peripheral spiculated nodule within the left upper lobe with associated mediastinal, left hilar, and left supraclavicular lymphadenopathy. This is consistent with a primary bronchogenic malignancy with metastatic lymphadenopathy. 2. The masslike lymphadenopathy in the left hilum results in occlusion of the left upper lobe segmental bronchus. --> (thankfully no respiratory compromise and on room air currently) 3. A small lytic/destructive metastatic lesion involving the right T3 pedicle and transverse process. 4. A mild superior endplate acute compression fracture at L1. This could be pathologic. 5. Please refer to the same day abdomen and pelvis CT for further evaluation of the hepatic metastases. CTA/P IMPRESSION: 1. Innumerable hepatic lesions resulting in near complete replacement of the normal hepatic parenchyma, hepatomegaly, and pseudocirrhosis. This most likely represents diffuse metastatic disease. 2. Mild focal circumferential thickening within the distal sigmoid colon with an associated inflamed diverticulum. This could represent an acute diverticulitis. However, an underlying colonic mass would be the diagnosis of exclusion. This results in a partial large bowel obstruction with the transition point at this location. Follow-up colonoscopy recommended for further evaluation. 3. There is also mild thickening of the distal esophagus which favors a mild esophagitis. However, this should also be assessed with endoscopy to exclude the less likely possibility of an esophageal lesion. 4. Mild distal paraesophageal, gastrohepatic, and periportal lymphadenopathy. This also likely represents metastatic disease. 5. A 1.7 cm left adrenal gland nodule. GI consulted -- plans initially for ERCP but no CBD dilation and cancelled Pulmonary consulted --> rec radiology for US guided biopsy for supraclavicular node which would stage IV and get diagnosis --> performed this afternoon Hematology consulted Palliative consulted --MELD 18 Sounds as though ex- would agree more comfortable but not able to contact today and patient remains level I. Unsure if has living will/POA as paperwork not filled out --> Told palliative team children would be taking her camping this weekend as she needed a break and unable to stay with patient given progression towards comfort if that is ultimately decided Cancer markers/CMV/EBV etc pending as ordered on admission but likely 2nd to above Switched to Zosyn (on Unasyn for suspected dental infection as well but possible diverticulitis vs colonic mass as above and broadened coverage) Ativan IVP prn agitation/discomfort --> Would avoid Haldol in patient with Lewy Body Dementia and this was discontinued Does have evidence of bony disease so if painful would suggest morphine --> denied pain when asked but tender to RUQ on exam -->? any palliative radiation in future for bony pain IVF for supportive care as hasn't eaten -- will try some clears. does have + BS. monitor Continue to monitor Will need placement given above and ex not able to currently take care of her (2) Elevated liver enzymes: Plan: 2nd to above TB 6.0--> 4.4 AST 331--> 150 ALT 158--> 150 ALP 526--> 485 Ammonia 46 (3) Metabolic encephalopathy: Plan: as above Ammonia 46 and no lactulose given at this time. will consider dose in am if agreeable/worsening Ativan prn as above (4) Abnormal CXR: Plan: Concern for primary oncological process remains at top of diagnostics- consult pulmonary likely 1. Nodular opacities of the left midlung measure up to 1.5 cm. 2. Bilateral hilar enlargement suggestive of adenopathy. Correlation with follow-up chest CT recommended. CT chest as above with evidence for primary lung ca, ?small cell Biopsy done by radiology today -- pathology pending (5) Tobacco dependence: Plan: Current smoker 2-3 packs per day for many years per X- - CXR as above as such, likely with primary lung ca as above (6) Lewy body dementia with behavioral disturbance: Plan: As above- - Previously on Memantine with planned switch to Nuplazid per most recent note ?Need for MRI brain to eval for brain mets --> will hold off for now given above. no clonus able to be appreciated on exam however patient not cooperative and having legs folded up (7) Infected tooth: Plan: Unable to assess- reportedly given ABX from dentist today - Unasyn 1.5 GM now then q6 --> switched to Zosyn as above for broader abdominal coverage given possible diverticulitis (however likely given everything else could have underlying colon mass) (8) Altered mental status: Plan: 2nd to metastatic disease CT head without acute CVA on admission ?need to pursue brain MRI (9) Acute encephalopathy: Plan: as above ativan prn agitation/aggression (10) Hilar mass: Plan: if needed, reconsult pulm for bronch/biopsy but got supraclavicular node today by radiology on US guided (11) Palliative care encounter: Plan: continued discussion (12) Liver metastasis: Plan: as above (13) Supraclavicular adenopathy: Plan: biopsy today path pending Plan: continued inpatient stay ex- camping who typically cares for him --> unable to come stay likely placement at d/c and will remain inpatient will need continued conversations if able to reach family/take him home on hospice? Admission and Anticipated Discharge Date Admission Date: March 16, 2021 Supervising Physician Co-Signing Physician Notes Attending Attestation - Chart reviewed in detail, care plan d/w DEANN Lee. I agree w/ the lima components of her documentation. Unfortunate 61yo male with Lewy-Body dementia with radiographic evidence of stage 4 cancer; primary site likely lung; cannot exclude colon as primary. Biopsy of supraclavicular lymph node from today pending. Best option may be palliative care given the extensive nature of his suspected cancer. Await bx results. Tristan Koroma MD Subjective Patient evaluated this afternoon. Had been agitated this morning but improved with ativan. Resting comfortably in bed upon arrival. Pleasant but confused. Pulling at gown. Denied pain at this time. No nausea. Wanting to eat. Then became upset and wanting to go home later. Hx Lewy Body Dementia and worsening confusion agitation over past several weeks. Hx smoking. Discussed obstruction and not comfortable at this time untill passing gas/moving bowels. Sleeping upon leaving his room. Underwent significant testing this morning which showed diffuse metastatic disease concerning for lung primary. GI consulted -- no ERCP given no CBD dilation Pulm consulted -- no biopsy and rec'd contacting radiology for US guided. This was completed this afternoon after additional ativan. Palliative contacted ex-, whom he lives with and she will be unable to visit this weekend as children taking her on camping trip. I contacted twice regarding code status and got her voicemail x 2 and voicemail box was full and unable to leave a message. Patient remains a level one but it did sound as such she felt more comfort direct approach in his best interest during palliative conversation but would like to have diagnosis if possible Review of Systems Review of Systems: All systems reviewed & are unremarkable except as noted in HPI & below Physical Exam Physical Exam: PHYSICAL EXAM: frail appearing, cachectic male, appears older than stated age. confused , falls back asleep easily head is normocephalic, atraumatic, garbled hard to understand speech at times eyes with scleral icterus, pupils equal and reactive no excoriations noted from itching mouth with slightly dry mm cardiac RRR, systolic murmur gi +BS, tender to palpation RUQ with associated fullness gu no sifuentes supraclavicular lymphadenopathy, bandaid covering most recent bx site, no evidence for bleeding jaundice of skin +hepatomegaly, tender to palpation, soft, +BS seen walking with aides with walker earlier in the morning neuro; alert but not oriented, moves all extremities, not able to evaluate for clonus due to cooperation/agitation Results & Data Results & Data ([facility]) Vital Signs (Past 12 Hours) Vital Signs Temp Pulse Resp BP Pulse Ox 03/16/21 21:25 36.5 C 99 H 20 147/81 H 95 Laboratory Results 03/17/21 03/17/21 03/17/21 Range/Units 06:06 06:06 06:06 WBC (4.8-10.8) K/uL RBC (4.7-6.1) M/uL Hgb (14.0-18.0) g/dL Hct (42-52) % MCV (80-100) fL MCH (25-34) pg MCHC (32-36) g/dL RDW Std Deviation (36.4-46.3) fL RDW Coeff of Steve (11.5-14.5) % Plt Count (130-400) K/uL MPV (7.4-10.4) fL Neutrophils % (Manual) % Lymphocytes % (Manual) % Monocytes % (Manual) % Eosinophils % (Manual) % Basophils % (Manual) % Neutrophils # (Manual) (1.4-6.5) K/uL Total Absolute Neuts (1.4-6.5) K/uL Lymphocytes # (Manual) (1.2-3.4) K/uL Total Abs Lymphocytes (1.2-3.4) K/uL Monocytes # (Manual) (0.11-0.59) K/uL Eosinophils # (Manual) (0-0.5) K/uL Basophils # (Manual) (0-0.2) K/uL Target Cells PT (9.0-12.0) Seconds INR (0.9-1.1) Sodium 136 (136-145) mmol/L Potassium 3.9 (3.5-5.1) mmol/L Chloride 106 (98-107) mmol/L Carbon Dioxide 23 (21-32) mmol/L Anion Gap 8.0 (3-11) BUN 14 (7-18) mg/dl Creatinine 0.79 (0.6-1.4) mg/dl Est Cr Clr Drug Dosing Not Reportable Est GFR ( Amer) 113.1 ml/min Est GFR (Non-Af Amer) 97.6 ml/min BUN/Creatinine Ratio 17.6 (10-20) Glucose 171 H (70-99) mg/dl Calcium 8.1 L (8.5-10.1) mg/dl Magnesium 2.3 (1.8-2.4) mg/dl Ferritin (8-388) ng/ml Total Bilirubin 4.4 H (0.2-1) mg/dl Direct Bilirubin 4.1 H (0-0.2) mg/dl AST 316 H (15-37) U/L ALT 150 H (12-78) U/L Alkaline Phosphatase 485 H (45-117) U/L Ammonia (11-32) umol/L Troponin I (0-0.045) ng/ml Total Protein 6.3 L (6.4-8.2) gm/dl Albumin 2.1 L (3.4-5.0) gm/dl Globulin 4.2 H (2.5-4.0) gm/dl Albumin/Globulin Ratio 0.5 L (0.9-2) Veczn-1-Wwouqgovnzr Pending Ceruloplasmin Pending Triglycerides 221 H (0-150) mg/dl Cholesterol 228 H (0-200) mg/dl LDL Cholesterol, Calc 174 mg/dl VLDL Cholesterol, Calc 44 mg/dl HDL Cholesterol 10 mg/dl Cholesterol/HDL Ratio 23 Lipase (73-393) U/L Tumor Marker AFP CA 19-9 Antigen TSH (0.300-4.500) uIu/ml Urine Color Urine Appearance (Clear) Urine pH (4.5-7.5) Ur Specific Hamer (1.000-1.030) Urine Protein (Negative) Urine Glucose (UA) (Negative) Urine Ketones (Negative) Urine Blood (Negative) Urine Nitrite (Negative) Urine Bilirubin (Negative) Urine Urobilinogen (Negative) Ur Leukocyte Esterase (Negative) Acetaminophen Anti-Mitochondrial Ab Pending Anti-Smooth Muscle Ab Pending COVID-19 Eval Order SARS-CoV-2 (PCR) (Negative) CMV IgM Ab Pending Hepatitis A IgM Ab Pending Hepatitis A Ab Total Pending Hep Bs Antigen Pending Hep B Core IgM Ab Pending Hepatitis Be Antibody Pending Hepatitis Be Antigen Pending Hepatitis C Antibody Pending Miscellaneous Test 03/17/21 03/17/21 03/16/21 Range/Units 06:06 06:06 20:37 WBC 8.55 (4.8-10.8) K/uL RBC 4.07 L (4.7-6.1) M/uL Hgb 12.8 L (14.0-18.0) g/dL Hct 37.7 L (42-52) % MCV 92.6 (80-100) fL MCH 31.4 (25-34) pg MCHC 34.0 (32-36) g/dL RDW Std Deviation 58.1 H (36.4-46.3) fL RDW Coeff of Steve 17.0 H (11.5-14.5) % Plt Count 220 (130-400) K/uL MPV 10.6 H (7.4-10.4) fL Neutrophils % (Manual) 76.3 % Lymphocytes % (Manual) 14.0 % Monocytes % (Manual) 7.0 % Eosinophils % (Manual) 0.9 % Basophils % (Manual) 1.8 % Neutrophils # (Manual) 6.52 H (1.4-6.5) K/uL Total Absolute Neuts 6.52 H (1.4-6.5) K/uL Lymphocytes # (Manual) 1.20 (1.2-3.4) K/uL Total Abs Lymphocytes 1.20 (1.2-3.4) K/uL Monocytes # (Manual) 0.60 H (0.11-0.59) K/uL Eosinophils # (Manual) 0.08 (0-0.5) K/uL Basophils # (Manual) 0.15 (0-0.2) K/uL Target Cells PT 10.5 (9.0-12.0) Seconds INR 1.0 (0.9-1.1) Sodium (136-145) mmol/L Potassium (3.5-5.1) mmol/L Chloride (98-107) mmol/L Carbon Dioxide (21-32) mmol/L Anion Gap (3-11) BUN (7-18) mg/dl Creatinine (0.6-1.4) mg/dl Est Cr Clr Drug Dosing Est GFR ( Amer) ml/min Est GFR (Non-Af Amer) ml/min BUN/Creatinine Ratio (10-20) Glucose (70-99) mg/dl Calcium (8.5-10.1) mg/dl Magnesium (1.8-2.4) mg/dl Ferritin 1872.7 H (8-388) ng/ml Total Bilirubin (0.2-1) mg/dl Direct Bilirubin (0-0.2) mg/dl AST (15-37) U/L ALT (12-78) U/L Alkaline Phosphatase (45-117) U/L Ammonia (11-32) umol/L Troponin I (0-0.045) ng/ml Total Protein (6.4-8.2) gm/dl Albumin (3.4-5.0) gm/dl Globulin (2.5-4.0) gm/dl Albumin/Globulin Ratio (0.9-2) Vocsb-9-Hhyozopipmf Ceruloplasmin Triglycerides (0-150) mg/dl Cholesterol (0-200) mg/dl LDL Cholesterol, Calc mg/dl VLDL Cholesterol, Calc mg/dl HDL Cholesterol mg/dl Cholesterol/HDL Ratio Lipase (73-393) U/L Tumor Marker AFP CA 19-9 Antigen TSH (0.300-4.500) uIu/ml Urine Color Urine Appearance (Clear) Urine pH (4.5-7.5) Ur Specific Hamer (1.000-1.030) Urine Protein (Negative) Urine Glucose (UA) (Negative) Urine Ketones (Negative) Urine Blood (Negative) Urine Nitrite (Negative) Urine Bilirubin (Negative) Urine Urobilinogen (Negative) Ur Leukocyte Esterase (Negative) Acetaminophen Anti-Mitochondrial Ab Anti-Smooth Muscle Ab COVID-19 Eval Order SARS-CoV-2 (PCR) (Negative) CMV IgM Ab Hepatitis A IgM Ab Hepatitis A Ab Total Hep Bs Antigen Hep B Core IgM Ab Hepatitis Be Antibody Hepatitis Be Antigen Hepatitis C Antibody Miscellaneous Test 03/16/21 03/16/21 03/16/21 Range/Units 20:36 20:36 18:08 WBC (4.8-10.8) K/uL RBC (4.7-6.1) M/uL Hgb (14.0-18.0) g/dL Hct (42-52) % MCV (80-100) fL MCH (25-34) pg MCHC (32-36) g/dL RDW Std Deviation (36.4-46.3) fL RDW Coeff of Steve (11.5-14.5) % Plt Count (130-400) K/uL MPV (7.4-10.4) fL Neutrophils % (Manual) % Lymphocytes % (Manual) % Monocytes % (Manual) % Eosinophils % (Manual) % Basophils % (Manual) % Neutrophils # (Manual) (1.4-6.5) K/uL Total Absolute Neuts (1.4-6.5) K/uL Lymphocytes # (Manual) (1.2-3.4) K/uL Total Abs Lymphocytes (1.2-3.4) K/uL Monocytes # (Manual) (0.11-0.59) K/uL Eosinophils # (Manual) (0-0.5) K/uL Basophils # (Manual) (0-0.2) K/uL Target Cells PT (9.0-12.0) Seconds INR (0.9-1.1) Sodium (136-145) mmol/L Potassium (3.5-5.1) mmol/L Chloride (98-107) mmol/L Carbon Dioxide (21-32) mmol/L Anion Gap (3-11) BUN (7-18) mg/dl Creatinine (0.6-1.4) mg/dl Est Cr Clr Drug Dosing Est GFR ( Amer) ml/min Est GFR (Non-Af Amer) ml/min BUN/Creatinine Ratio (10-20) Glucose (70-99) mg/dl Calcium (8.5-10.1) mg/dl Magnesium (1.8-2.4) mg/dl Ferritin (8-388) ng/ml Total Bilirubin (0.2-1) mg/dl Direct Bilirubin (0-0.2) mg/dl AST (15-37) U/L ALT (12-78) U/L Alkaline Phosphatase (45-117) U/L Ammonia (11-32) umol/L Troponin I (0-0.045) ng/ml Total Protein (6.4-8.2) gm/dl Albumin (3.4-5.0) gm/dl Globulin (2.5-4.0) gm/dl Albumin/Globulin Ratio (0.9-2) Jcomc-7-Qdsjfwhgecm Ceruloplasmin Triglycerides (0-150) mg/dl Cholesterol (0-200) mg/dl LDL Cholesterol, Calc mg/dl VLDL Cholesterol, Calc mg/dl HDL Cholesterol mg/dl Cholesterol/HDL Ratio Lipase (73-393) U/L Tumor Marker AFP CA 19-9 Antigen TSH (0.300-4.500) uIu/ml Urine Color Urine Appearance (Clear) Urine pH (4.5-7.5) Ur Specific Hamer (1.000-1.030) Urine Protein (Negative) Urine Glucose (UA) (Negative) Urine Ketones (Negative) Urine Blood (Negative) Urine Nitrite (Negative) Urine Bilirubin (Negative) Urine Urobilinogen (Negative) Ur Leukocyte Esterase (Negative) Acetaminophen TNP Anti-Mitochondrial Ab Anti-Smooth Muscle Ab COVID-19 Eval Order SARS-CoV-2 (PCR) NEGATIVE (Negative) CMV IgM Ab Hepatitis A IgM Ab Hepatitis A Ab Total Hep Bs Antigen Hep B Core IgM Ab Hepatitis Be Antibody Hepatitis Be Antigen Hepatitis C Antibody Miscellaneous Test Pending 03/16/21 03/16/21 03/16/21 Range/Units 18:08 18:08 13:50 WBC (4.8-10.8) K/uL RBC (4.7-6.1) M/uL Hgb (14.0-18.0) g/dL Hct (42-52) % MCV (80-100) fL MCH (25-34) pg MCHC (32-36) g/dL RDW Std Deviation (36.4-46.3) fL RDW Coeff of Steve (11.5-14.5) % Plt Count (130-400) K/uL MPV (7.4-10.4) fL Neutrophils % (Manual) % Lymphocytes % (Manual) % Monocytes % (Manual) % Eosinophils % (Manual) % Basophils % (Manual) % Neutrophils # (Manual) (1.4-6.5) K/uL Total Absolute Neuts (1.4-6.5) K/uL Lymphocytes # (Manual) (1.2-3.4) K/uL Total Abs Lymphocytes (1.2-3.4) K/uL Monocytes # (Manual) (0.11-0.59) K/uL Eosinophils # (Manual) (0-0.5) K/uL Basophils # (Manual) (0-0.2) K/uL Target Cells PT (9.0-12.0) Seconds INR (0.9-1.1) Sodium (136-145) mmol/L Potassium (3.5-5.1) mmol/L Chloride (98-107) mmol/L Carbon Dioxide (21-32) mmol/L Anion Gap (3-11) BUN (7-18) mg/dl Creatinine (0.6-1.4) mg/dl Est Cr Clr Drug Dosing Est GFR ( Amer) ml/min Est GFR (Non-Af Amer) ml/min BUN/Creatinine Ratio (10-20) Glucose (70-99) mg/dl Calcium (8.5-10.1) mg/dl Magnesium (1.8-2.4) mg/dl Ferritin (8-388) ng/ml Total Bilirubin (0.2-1) mg/dl Direct Bilirubin (0-0.2) mg/dl AST (15-37) U/L ALT (12-78) U/L Alkaline Phosphatase (45-117) U/L Ammonia 46.1 H (11-32) umol/L Troponin I (0-0.045) ng/ml Total Protein (6.4-8.2) gm/dl Albumin (3.4-5.0) gm/dl Globulin (2.5-4.0) gm/dl Albumin/Globulin Ratio (0.9-2) Wbvxw-2-Gzhquprnffo Ceruloplasmin Triglycerides (0-150) mg/dl Cholesterol (0-200) mg/dl LDL Cholesterol, Calc mg/dl VLDL Cholesterol, Calc mg/dl HDL Cholesterol mg/dl Cholesterol/HDL Ratio Lipase (73-393) U/L Tumor Marker AFP CA 19-9 Antigen TSH (0.300-4.500) uIu/ml Urine Color Dark Yellow Urine Appearance Clear (Clear) Urine pH 6.0 (4.5-7.5) Ur Specific Hamer 1.015 (1.000-1.030) Urine Protein Negative (Negative) Urine Glucose (UA) Negative (Negative) Urine Ketones Negative (Negative) Urine Blood Negative (Negative) Urine Nitrite Negative (Negative) Urine Bilirubin 2+ H (Negative) Urine Urobilinogen Positive H (Negative) Ur Leukocyte Esterase Negative (Negative) Acetaminophen Anti-Mitochondrial Ab Anti-Smooth Muscle Ab COVID-19 Eval Order Covid19 at [facility] SARS-CoV-2 (PCR) (Negative) CMV IgM Ab Hepatitis A IgM Ab Hepatitis A Ab Total Hep Bs Antigen Hep B Core IgM Ab Hepatitis Be Antibody Hepatitis Be Antigen Hepatitis C Antibody Miscellaneous Test 03/16/21 03/16/21 03/16/21 Range/Units 13:20 13:20 13:20 WBC (4.8-10.8) K/uL RBC (4.7-6.1) M/uL Hgb (14.0-18.0) g/dL Hct (42-52) % MCV (80-100) fL MCH (25-34) pg MCHC (32-36) g/dL RDW Std Deviation (36.4-46.3) fL RDW Coeff of Steve (11.5-14.5) % Plt Count (130-400) K/uL MPV (7.4-10.4) fL Neutrophils % (Manual) % Lymphocytes % (Manual) % Monocytes % (Manual) % Eosinophils % (Manual) % Basophils % (Manual) % Neutrophils # (Manual) (1.4-6.5) K/uL Total Absolute Neuts (1.4-6.5) K/uL Lymphocytes # (Manual) (1.2-3.4) K/uL Total Abs Lymphocytes (1.2-3.4) K/uL Monocytes # (Manual) (0.11-0.59) K/uL Eosinophils # (Manual) (0-0.5) K/uL Basophils # (Manual) (0-0.2) K/uL Target Cells PT 10.3 (9.0-12.0) Seconds INR 1.0 (0.9-1.1) Sodium 131 L (136-145) mmol/L Potassium 4.1 (3.5-5.1) mmol/L Chloride 99 (98-107) mmol/L Carbon Dioxide 23 (21-32) mmol/L Anion Gap 9.0 (3-11) BUN 15 (7-18) mg/dl Creatinine 0.72 (0.6-1.4) mg/dl Est Cr Clr Drug Dosing Not Reportable Est GFR ( Amer) 117.5 ml/min Est GFR (Non-Af Amer) 101.4 ml/min BUN/Creatinine Ratio 20.6 H (10-20) Glucose 124 H (70-99) mg/dl Calcium 8.9 (8.5-10.1) mg/dl Magnesium 2.2 (1.8-2.4) mg/dl Ferritin (8-388) ng/ml Total Bilirubin 6.0 H (0.2-1) mg/dl Direct Bilirubin (0-0.2) mg/dl AST 331 H (15-37) U/L ALT 158 H (12-78) U/L Alkaline Phosphatase 526 H (45-117) U/L Ammonia (11-32) umol/L Troponin I < 0.015 (0-0.045) ng/ml Total Protein 6.9 (6.4-8.2) gm/dl Albumin 2.4 L (3.4-5.0) gm/dl Globulin 4.5 H (2.5-4.0) gm/dl Albumin/Globulin Ratio 0.5 L (0.9-2) Ufkik-6-Dcshlmpxtfr Ceruloplasmin Triglycerides (0-150) mg/dl Cholesterol (0-200) mg/dl LDL Cholesterol, Calc mg/dl VLDL Cholesterol, Calc mg/dl HDL Cholesterol mg/dl Cholesterol/HDL Ratio Lipase 208 (73-393) U/L Tumor Marker AFP Pending CA 19-9 Antigen Pending TSH 1.180 (0.300-4.500) uIu/ml Urine Color Urine Appearance (Clear) Urine pH (4.5-7.5) Ur Specific Hamer (1.000-1.030) Urine Protein (Negative) Urine Glucose (UA) (Negative) Urine Ketones (Negative) Urine Blood (Negative) Urine Nitrite (Negative) Urine Bilirubin (Negative) Urine Urobilinogen (Negative) Ur Leukocyte Esterase (Negative) Acetaminophen Anti-Mitochondrial Ab Anti-Smooth Muscle Ab COVID-19 Eval Order SARS-CoV-2 (PCR) (Negative) CMV IgM Ab Hepatitis A IgM Ab Hepatitis A Ab Total Hep Bs Antigen Hep B Core IgM Ab Hepatitis Be Antibody Hepatitis Be Antigen Hepatitis C Antibody Miscellaneous Test 03/16/21 Range/Units 13:20 WBC 9.80 (4.8-10.8) K/uL RBC 4.30 L (4.7-6.1) M/uL Hgb 13.4 L (14.0-18.0) g/dL Hct 39.3 L (42-52) % MCV 91.4 (80-100) fL MCH 31.2 (25-34) pg MCHC 34.1 (32-36) g/dL RDW Std Deviation 56.0 H (36.4-46.3) fL RDW Coeff of Steve 16.9 H (11.5-14.5) % Plt Count 236 (130-400) K/uL MPV 10.6 H (7.4-10.4) fL Neutrophils % (Manual) 83.5 % Lymphocytes % (Manual) 10.4 % Monocytes % (Manual) 3.5 % Eosinophils % (Manual) 2.6 % Basophils % (Manual) % Neutrophils # (Manual) 8.18 H (1.4-6.5) K/uL Total Absolute Neuts 8.18 H (1.4-6.5) K/uL Lymphocytes # (Manual) 1.02 L (1.2-3.4) K/uL Total Abs Lymphocytes 1.02 L (1.2-3.4) K/uL Monocytes # (Manual) 0.34 (0.11-0.59) K/uL Eosinophils # (Manual) 0.25 (0-0.5) K/uL Basophils # (Manual) (0-0.2) K/uL Target Cells 1+ PT (9.0-12.0) Seconds INR (0.9-1.1) Sodium (136-145) mmol/L Potassium (3.5-5.1) mmol/L Chloride (98-107) mmol/L Carbon Dioxide (21-32) mmol/L Anion Gap (3-11) BUN (7-18) mg/dl Creatinine (0.6-1.4) mg/dl Est Cr Clr Drug Dosing Est GFR ( Amer) ml/min Est GFR (Non-Af Amer) ml/min BUN/Creatinine Ratio (10-20) Glucose (70-99) mg/dl Calcium (8.5-10.1) mg/dl Magnesium (1.8-2.4) mg/dl Ferritin (8-388) ng/ml Total Bilirubin (0.2-1) mg/dl Direct Bilirubin (0-0.2) mg/dl AST (15-37) U/L ALT (12-78) U/L Alkaline Phosphatase (45-117) U/L Ammonia (11-32) umol/L Troponin I (0-0.045) ng/ml Total Protein (6.4-8.2) gm/dl Albumin (3.4-5.0) gm/dl Globulin (2.5-4.0) gm/dl Albumin/Globulin Ratio (0.9-2) Apehm-5-Ajgseydzrqc Ceruloplasmin Triglycerides (0-150) mg/dl Cholesterol (0-200) mg/dl LDL Cholesterol, Calc mg/dl VLDL Cholesterol, Calc mg/dl HDL Cholesterol mg/dl Cholesterol/HDL Ratio Lipase (73-393) U/L Tumor Marker AFP CA 19-9 Antigen TSH (0.300-4.500) uIu/ml Urine Color Urine Appearance (Clear) Urine pH (4.5-7.5) Ur Specific Hamer (1.000-1.030) Urine Protein (Negative) Urine Glucose (UA) (Negative) Urine Ketones (Negative) Urine Blood (Negative) Urine Nitrite (Negative) Urine Bilirubin (Negative) Urine Urobilinogen (Negative) Ur Leukocyte Esterase (Negative) Acetaminophen Anti-Mitochondrial Ab Anti-Smooth Muscle Ab COVID-19 Eval Order SARS-CoV-2 (PCR) (Negative) CMV IgM Ab Hepatitis A IgM Ab Hepatitis A Ab Total Hep Bs Antigen Hep B Core IgM Ab Hepatitis Be Antibody Hepatitis Be Antigen Hepatitis C Antibody Miscellaneous Test Diagnostic Findings Chest X-Ray 03/16/21 19:16 XR chest 1V portable HISTORY: 61 years-old Male evaluate for pulm nodule/cancer- admission acute shortness of breath COMPARISON: Chest radiograph 08/22/2015 TECHNIQUE: Portable AP view of the chest FINDINGS: Azygos lobe and fissure. Mild cardiomegaly. Moderate bilateral hilar e nlargement. Left perihilar nodular opacities measure up to 1.5 cm. No pneumothorax, pleural effusion or overt pulmonary edema. Degenerative changes of the right and left shoulder. IMPRESSION: 1. Nodular opacities of the left midlung measure up to 1.5 cm. 2. Bilateral hilar enlargement suggestive of adenopathy. Correlation with follow-up chest CT recommended. ACT 112: Negative or not required by law. The above report was generated using voice recognition software. It may contain grammatical, syntax or spelling errors. Electronically signed by: Peyman Maradiaga M.D. 03/16/2021 8:59 PM Abdomen/Pelvis CT 03/16/21 21:[address] WITHOUT CONTRAST CT DOSE: 722.61 mGycm HISTORY: Abnormal ultrasound. Abnormal LFTs. evaluate for masses/liver mets TECHNIQUE: Multiaxial CT images of the abdomen and pelvis were performed without contrast. A dose lowering technique was utilized adhering to the principles of ALARA. COMPARISON STUDY: Abdominal ultrasound 03/16/2021. FINDINGS: Please refer to the same day chest CT for further evaluation of the lung bases. No pneumoperitoneum. No pneumatosis. No suspicious lytic or blastic osseous lesions. There is a mild superior endplate compression fracture at L1 with mild paravertebral edema. This is likely acute. No associated retropulsion or central canal narrowing. Mild thickening of the distal esophagus. There is a single prominent distal paraesophageal lymph node measuring 8 mm on image 52. The liver is enlarged with innumerable hypodense lesions resulting in near complete replacement of the normal hepatic parenchyma. This accounts for the nodular contour to the liver consistent with pseudocirrhosis. There is trace perihepatic ascites. The gallbladder is contracted but appears unremarkable. The unenhanced pancreas, spleen, and right adrenal gland are unremarkable. A 1.7 cm left adrenal gland nodule. No renal stones or hydronephrosis. There is mild periportal and gastrohepatic lymphadenopathy. Dominant periportal lymph node measures 2 cm. The bladder is unremarkable. No pelvic free fluid. Normal caliber abdominal aorta. There is a left circumaortic renal vein. Mild central ventral thickening at the distal sigmoid colon with an inflamed diverticulum mild pericolonic fat stranding. This is seen on image 315. There is mild narrowing at this location resulting in a partial large bowel obstruction with a large amount of stool within the proximal colon. No dilated loops of small bowel identified. IMPRESSION: 1. Innumerable hepatic lesions resulting in near complete replacement of the normal hepatic parenchyma, hepatomegaly, and pseudocirrhosis. This most likely represents diffuse metastatic disease. 2. Mild focal circumferential thickening within the distal sigmoid colon with an associated inflamed diverticulum. This could represent an acute diverticulitis. However, an underlying colonic mass would be the diagnosis of exclusion. This results in a partial large bowel obstruction with the transition point at this location. Follow-up colonoscopy recommended for further evaluation. 3. There is also mild thickening of the distal esophagus which favors a mild esophagitis. However, this should also be assessed with endoscopy to exclude the less likely possibility of an esophageal lesion. 4. Mild distal paraesophageal, gastrohepatic, and periportal lymphadenopathy. This also likely represents metastatic disease. 5. A 1.7 cm left adrenal gland nodule. ACT 112: Negative or not required by law. Electronically signed by: Jaskaran Gomes M.D. 03/17/2021 10:[address] 03/16/21 21:23 CT chest diagnostic wo con CT DOSE: 501.88 mGycm HISTORY: Abnormal chest x-ray. evaluate lung nodules and hilar adenopathy TECHNIQUE: Multiaxial CT images of the chest were performed without contrast. A dose lowering technique was utilized adhering to the principles of ALARA. COMPARISON: Chest 03/16/2021. FINDINGS: No pneumothorax. No pleural effusions. A right azygos lobe is noted. There is moderate emphysema. There is a peripheral spiculated 2.2 cm nodule within the left upper lobe on image 97. There are few tiny adjacent satellite nodules. A few bibasilar densities favor atelectasis. There is trace mucoid material within the trachea. No pleural or pericardial effusions. The heart is normal in size. Mild thickening of the distal esophagus is again noted. Please refer the same day abdomen and pelvis CT for further elevation of the hepatic masses. There is left sternoclavicular lymphadenopathy measuring up to 2.8 cm. Normal caliber thoracic aorta. No right hilar lymphadenopathy. Masslike lymphadenopathy within the left hilum with associated prevascular and AP window lymphadenopathy. The left hilar masslike adenopathy measures approximately 6 cm and results in occlusion of a left upper lobe segmental bronchus. There is mild superior endplate compression fracture at L1. This could be pathologic. There is a lytic/destructive lesion involving the right T3 pedicle and transverse process IMPRESSION: 1. A 2.2 cm peripheral spiculated nodule within the left upper lobe with associated mediastinal, left hilar, and left supraclavicular lymphadenopathy. This is consistent with a primary bronchogenic malignancy with metastatic lymphadenopathy. 2. The masslike lymphadenopathy in the left hilum results in occlusion of the left upper lobe segmental bronchus. 3. A small lytic/destructive metastatic lesion involving the right T3 pedicle and transverse process. 4. A mild superior endplate acute compression fracture at L1. This could be pathologic. 5. Please refer to the same day abdomen and pelvis CT for further evaluation of the hepatic metastases. ACT 112: Negative or not required by law. Electronically signed by: Jaskaran Gomes M.D. 03/17/2021 10:44 AM Aspiration 03/17/21 13:19 ULTRASOUND-GUIDED FINE-NEEDLE ASPIRATION THYROID INDICATION: Left supraclavicular lymph node in a patient with a history of a lung mass.. COMPARISON: None available at the time of this dictation. PROCEDURE: The risks, benefits, and alternatives to the procedure were discussed with the patient's . Verbal informed consent was obtained. The patient was placed supine in ultrasound, and the 2.8 cm supraclavicular lymph node was localized by ultrasound and selected for fine needle aspiration. The neck was prepped and draped in the usual sterile fashion. The nodule was aspirated under ultrasound guidance with 2 passes utilizing 25-gauge needles and one pass of a 22-gauge needle. Specimens were reviewed by the pathologist in real-time and deemed adequate for diagnosis. The patient tolerated the procedure well and left the department in satisfactory condition. IMPRESSION: Completed fine-needle aspiration of a right supraclavicular lymph node as above. ACT 112: Negative or not required by law. Electronically signed by: David Mane M.D. 03/17/2021 3:29 PM PG Care Time/CCT Total # of Minutes Spent Total Time Spent with Patient: Total time spent is greater than 50% in coordination of care (as documented) at patient's floor/unit and/or counseling patient: Coding Level of Care Code 41278 Subseq Hosp Care Lvl 3 Diagnoses Elevated liver enzymes R74.8 Metabolic encephalopathy G93.41 Abnormal CXR R93.89 Tobacco dependence F17.200 Lewy body dementia with behavioral disturbance G31.83; F02.81 Infected tooth K04.7 Altered mental status R41.82 Altered mental status type: unspecified Acute encephalopathy G93.40 Hilar mass R91.8 Metastatic disease C79.9 Palliative care encounter Z51.5 Liver metastasis C78.7 Supraclavicular adenopathy R59.0 (1) Altered mental status Altered mental status type: unspecified Qualified Code(s): R41.82 - Altered mental status, unspecified
[2021-03-17] MEDS: HEPARIN SOD 5,000 UNIT/0.5 ML VIAL SQ SCH ×2 (10:13→20:22)
--- NOTE | 2021-03-17 10:17 | CT Scan Report ---
ABDOMEN AND PELVIS CT WITHOUT CONTRAST CT DOSE: 722.61 mGycm HISTORY: Abnormal ultrasound. Abnormal LFTs. evaluate for masses/liver mets TECHNIQUE: Multiaxial CT images of the abdomen and pelvis were performed without contrast. A dose lo wering technique was utilized adhering to the principles of ALARA. COMPARISON STUDY: Abdominal ultrasound 03/16/2021. FINDINGS: Please refer to the same day chest CT for further evaluation of the lung bases. No pneumope ritoneum. No pneumatosis. No suspicious lytic or blastic osseous lesions. There is a mild superior en dplate compression fracture at L1 with mild paravertebral edema. This is likely acute. No associated retropulsion or central canal narrowing. Mild thickening of the distal esophagus. There is a single p rominent distal paraesophageal lymph node measuring 8 mm on image 52. The liver is enlarged with innu merable hypodense lesions resulting in near complete replacement of the normal hepatic parenchyma. Th is accounts for the nodular contour to the liver consistent with pseudocirrhosis. There is trace maribel hepatic ascites. The gallbladder is contracted but appears unremarkable. The unenhanced pancreas, spl een, and right adrenal gland are unremarkable. A 1.7 cm left adrenal gland nodule. No renal stones or hydronephrosis. There is mild periportal and gastrohepatic lymphadenopathy. Dominant periportal lymp h node measures 2 cm. The bladder is unremarkable. No pelvic free fluid. Normal caliber abdominal aor ta. There is a left circumaortic renal vein. Mild central ventral thickening at the distal sigmoid co eduardo with an inflamed diverticulum mild pericolonic fat stranding. This is seen on image 315. There is mild narrowing at this location resulting in a partial large bowel obstruction with a large amount o f stool within the proximal colon. No dilated loops of small bowel identified. IMPRESSION: 1. Innumerable hepatic lesions resulting in near complete replacement of the normal hepatic parenchym a, hepatomegaly, and pseudocirrhosis. This most likely represents diffuse metastatic disease. 2. Mild focal circumferential thickening within the distal sigmoid colon with an associated inflamed diverticulum. This could represent an acute diverticulitis. However, an underlying colonic mass would be the diagnosis of exclusion. This results in a partial large bowel obstruction with the transition point at this location. Follow-up colonoscopy recommended for further evaluation. 3. There is also mild thickening of the distal esophagus which favors a mild esophagitis. However, th is should also be assessed with endoscopy to exclude the less likely possibility of an esophageal les ion. 4. Mild distal paraesophageal, gastrohepatic, and periportal lymphadenopathy. This also likely repres ents metastatic disease. 5. A 1.7 cm left adrenal gland nodule. ACT 112: Negative or not required by law. Electronically signed by: Jaskaran Gomes M.D. 03/17/2021 10:16 AM
--- NOTE | 2021-03-17 10:45 | CT Scan Report ---
CT chest diagnostic wo con CT DOSE: 501.88 mGycm HISTORY: Abnormal chest x-ray. evaluate lung nodules and hilar adenopathy TECHNIQUE: Multiaxial CT images of the chest were performed without contrast. A dose lowering techni que was utilized adhering to the principles of ALARA. COMPARISON: Chest 03/16/2021. FINDINGS: No pneumothorax. No pleural effusions. A right azygos lobe is noted. There is moderate emph ysema. There is a peripheral spiculated 2.2 cm nodule within the left upper lobe on image 97. There a re few tiny adjacent satellite nodules. A few bibasilar densities favor atelectasis. There is trace m ucoid material within the trachea. No pleural or pericardial effusions. The heart is normal in size. Mild thickening of the distal esophagus is again noted. Please refer the same day abdomen and pelvis CT for further elevation of the hepatic masses. There is left sternoclavicular lymphadenopathy measur ing up to 2.8 cm. Normal caliber thoracic aorta. No right hilar lymphadenopathy. Masslike lymphadenop athy within the left hilum with associated prevascular and AP window lymphadenopathy. The left hilar masslike adenopathy measures approximately 6 cm and results in occlusion of a left upper lobe segment al bronchus. There is mild superior endplate compression fracture at L1. This could be pathologic. Th ere is a lytic/destructive lesion involving the right T3 pedicle and transverse process IMPRESSION: 1. A 2.2 cm peripheral spiculated nodule within the left upper lobe with associated mediastinal, left hilar, and left supraclavicular lymphadenopathy. This is consistent with a primary bronchogenic koffi gnancy with metastatic lymphadenopathy. 2. The masslike lymphadenopathy in the left hilum results in occlusion of the left upper lobe segment al bronchus. 3. A small lytic/destructive metastatic lesion involving the right T3 pedicle and transverse process. 4. A mild superior endplate acute compression fracture at L1. This could be pathologic. 5. Please refer to the same day abdomen and pelvis CT for further evaluation of the hepatic metastase s. ACT 112: Negative or not required by law. Electronically signed by: Jaskaran Gomes M.D. 03/17/2021 10:44 AM
--- NOTE | 2021-03-17 11:54 | Gastrointestinal Consultation ---
Date of Consultation March 17, 2021 Assessment & Plan (1) Liver metastasis: Discussed imaging findings with radiologist. Most likely his presentation represents lung cancer with metastasis to the liver. There is no evidence of bile duct obstruction. Most likely his elevated LFTs are secondary to diffuse tumor burden in the liver. Would defer care to pulmonology and oncology. Please let us know if we can be of any further assistance in his diagnosis or treatment. Supervising Physician Co-Signing Physician Notes I saw and evaluated the patient. We were consulted for evaluation of elevated liver enzymes. The patient has a history of Lewy body dementia and is unable to give any historical information. The patient was found to have evidence of a lung mass on CT in addition to too numerous to count large masses within the liver. He just underwent a percutaneous biopsy of a lymph node. Physical examination Thin male, no obvious distress, mild scleral icterus noted no abdominal tenderness noted Impression: Patient with elevated liver enzymes likely related to metastatic burden of disease from a primary pulmonary malignancy. Based on the presentation I wonder if the patient may have a small cell lung cancer. At the present time it does not appear to be a biliary process and therefore we would not recommend ERCP. Please call with any additional questions or concerns, GI to sign off History of Present Illness Reason for Consultation: Elevated LFTs Requesting Physician: Dr. Her Attending Physician: Tristan Koroma History of Present Illness Mr. Mansoor Murrieta is a 61-year-old male patient without a local primary physician who has a history of dementia. The patient is currently conversational but is a poor historian, providing conflicting information. I spoke with his today by phone. She tells me that over the past month he has had increasingly eradicating, agitated behavior with some hallucinations. She brought him to the emergency department yesterday because of his agitation. Regarding abdominal pain the patient has commented that he believes he has a tumor. He has not specifically complained of abdominal pain. Specifically, he has not had any right upper quadrant postprandial pain. She tells me that he has not had any yellow skin yellow eyes acholic stools and has not had any blood in his stools. He has not had any nausea or vomiting. He does struggle with constipation which seems to be improved with stool softener. No fevers chills sweats. No chest pain or shortness of breath. He is a cigarette smoker. He has never previously had care from a local universal grinder operator. She does not believe he has ever gone through a colonoscopy in the past and he has never had an EGD. No new medications. In fact, he is not on any prescription medications, just takes melatonin at nighttime. Regarding possible cirrhosis, he has never been a heavy alcohol drinker. He has been significantly overweight typically being over 300 pounds for many years but has slowly lost weight and is currently in the 160s. His height is 5 foot 9. He is not a diabetic and does not have any diabetes and family but the tells me the cancer does run in his family (unsure which types of cancer). Upon arrival, CT scan what appears to be metastatic liver lesions. LFTs are elevated total bilirubin 6 on arrival-> 4.4 today, direct 4.1, AST 331-> 360, ALT 158-> 150 alkaline phosphatase 527-> 485. Allergies Allergy/AdvReac Type Severity Reaction Status Date / Time haloperidol Allergy Severe LETHARGIC Unverified 03/13/21 15:12 propranolol Allergy Unknown Verified 03/13/21 15:12 alprazolam AdvReac Unknown Verified 03/13/21 15:12 clonazepam AdvReac Unknown Verified 03/13/21 15:12 donepezil AdvReac Unknown Verified 03/13/21 15:12 fluvoxamine AdvReac Unknown Verified 03/13/21 15:12 hydroxyzine AdvReac Unknown Verified 03/13/21 15:12 lorazepam AdvReac Unknown Verified 03/13/21 15:12 oxcarbazepine AdvReac Unknown Verified 03/13/21 15:12 risperidone AdvReac Unknown Verified 03/13/21 15:12 tramadol AdvReac Unknown Verified 03/13/21 15:12 trihexyphenidyl AdvReac Unknown Verified 03/13/21 15:12 Home Medications Medication Instructions Recorded Confirmed Type melatonin 1 mg tablet 1 mg PO HS #90 tab 03/13/21 03/13/21 Rx pimavanserin 34 mg capsule 34 mg PO DAILY 03/13/21 03/13/21 History (Nuplazid) Patient History Medical History Depression with anxiety Essential tremor Lewy body dementia with behavioral disturbance Sleep disorder Surgical History S/P appendectomy S/P tonsillectomy and adenoidectomy Family History Sister Brain tumor Breast cancer Diabetes Mother Cancer Father Cancer Social History Smoking Status: Unknown if ever smoked Preferred Language: Hungarian Communication Ability: Effective Account Solutions Analyst Required: No Current Living Situation: Family Feels Safe at Home: Yes Safety Concerns: Feels Safe At This Time Assistive Devices: None Review of Systems Review of Systems: Patient not a reliable historian. See HPI for information from his . Physical Exam Constitutional: well developed, + ill appearing, + thin and cooperative Eyes: PERRL, conjunctivae normal, anicteric sclerae Respiratory: normal respiratory effort and able to speak in complete sentences; no respiratory distress, no labored breathing, does not use accessory muscles and no cough Cardiovascular: RRR, no murmur, no edema Gastrointestinal (Abdomen): Percussion/Palpation: + abdomen tender ( Complaint of pain on palpation of the right upp No signs of acute abdomen.) and abdomen soft; no guarding and abdomen not rigid Skin: no rashes, warm and dry normal turgor Neurologic: PERRL, EOMI, accommodation nl, no face palsy, no dysarthria awake; not confused Psychiatric: A+Ox3, euthymic affect Orientation: alert, oriented to person and cooperative Insight: + poor insight Judgement: + poor judgement and + impaired judgement Results & Data ([facility]) Vital Signs (Past 12 Hours) Afebrile, O2 satting at 95% on room air, BP 147/81, pulse 99. Laboratory Results WBC 8, Hb 12, HCT 37, glucose 220, INR 1.0, sodium 136, K3.9, CL 106, CO2 23, BUN 14, CR 0.79, glucose 171 See HPI for LFTs Diagnostic Findings CT chest: 1. A 2.2 cm peripheral spiculated nodule within the left upper lobe with associated mediastinal, left hilar, and left supraclavicular lymphadenopathy. This is consistent with a primary bronchogenic malignancy with metastatic lymphadenopathy. 2. The masslike lymphadenopathy in the left hilum results in occlusion of the left upper lobe segmental bronchus. 3. A small lytic/destructive metastatic lesion involving the right T3 pedicle and transverse process. 4. A mild superior endplate acute compression fracture at L1. This could be pathologic. 5. Please refer to the same day abdomen and pelvis CT for further evaluation of the hepatic metastases. Noncontrast CT the abdomen and pelvis: 1. Innumerable hepatic lesions resulting in near complete replacement of the normal hepatic parenchyma, hepatomegaly, and pseudocirrhosis. This most likely represents diffuse metastatic disease. 2. Mild focal circumferential thickening within the distal sigmoid colon with an associated inflamed diverticulum. This could represent an acute diverticulitis. However, an underlying colonic mass would be the diagnosis of exclusion. This results in a partial large bowel obstruction with the transition point at this location. Follow-up colonoscopy recommended for further evaluation. 3. There is also mild thickening of the distal esophagus which favors a mild esophagitis. However, this should also be assessed with endoscopy to exclude the less likely possibility of an esophageal lesion. 4. Mild distal paraesophageal, gastrohepatic, and periportal lymphadenopathy. This also likely represents metastatic disease. 5. A 1.7 cm left adrenal gland nodule. US: 1. Diffuse heterogeneity of the liver with marginal nodularity. 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 Cirrhotic liver with fibrotic changes considered less likely. Nonemergent oncologic f ollow-up is needed. 2. Contracted gallbladder with cholelithiasis.
[2021-03-17] MEDS ORDERED: LORazepam 0.5 MG/1 ML VIAL IV STA (13:43)
--- NOTE | 2021-03-17 14:45 | Palliative Care Consultation ---
Date of Consultation March 17, 2021 Assessment & Plan (1) Metabolic encephalopathy: Given his history of Lewy body dementia, I would avoid haldol. Would favor lorazepam use for his safety and comfort. (2) Palliative care encounter: I spoke with Mansoor's significant other, Cristina, on the phone. We reviewed his current status and available information from imaging and labs. We discussed that this is most likely advanced cancer, perhaps with lung cancer as primary. He will be having biopsy of lung nodule with IR this afternoon. Regardless of primary source, he appears to have very advanced disease which indicates a poor prognosis, particularly with his comorbid Lewy body dementia. We talked about his distress with being hospitalized with his altered mental status. Cristina tells me that Mansoor has never really talked about what he would want for his care but confirms that in general, he did not seek medical care unless absolutely necessary. She understands that if he were to have a definitive diagnosis, treatment would likely be palliative. She feels that taking a comfort directed approach would probably be in his best interest but would like to have a diagnosis if possible. She will be out of town for the weekend but will come to visit him on Saturday and discuss goals of care further at that time. Discussed with REBECCA Waite and RN (3) Acute liver failure: (4) Liver metastasis: (5) Abnormal CXR: (6) Lewy body dementia with behavioral disturbance: History of Present Illness Reason for Consultation: goals of care Requesting Physician: REBECCA Waite Attending Physician: Tristan Koroma History of Present Illness 61 yo gentleman with history of Lewy body dementia who apparently had not been receiving regular medical care. He also has a history of TBI and bipolar disorder. He was admitted with increased agitation, found to have significantly elevated liver enzymes. Imaging shows innumerable liver nodules consistent with metastatic disease to the point of pseudocirrhosis. He also has left lung nodules with hilar and abdominal lymphadenopathy. He is a chronic heavy smoker. He is currently quite agitated and threatening to leave. He is not capable of goals of care discussion at this point. Allergies Allergy/AdvReac Type Severity Reaction Status Date / Time haloperidol Allergy Severe LETHARGIC Unverified 03/13/21 15:12 propranolol Allergy Unknown Verified 03/13/21 15:12 alprazolam AdvReac Unknown Verified 03/13/21 15:12 clonazepam AdvReac Unknown Verified 03/13/21 15:12 donepezil AdvReac Unknown Verified 03/13/21 15:12 fluvoxamine AdvReac Unknown Verified 03/13/21 15:12 hydroxyzine AdvReac Unknown Verified 03/13/21 15:12 lorazepam AdvReac Unknown Verified 03/13/21 15:12 oxcarbazepine AdvReac Unknown Verified 03/13/21 15:12 risperidone AdvReac Unknown Verified 03/13/21 15:12 tramadol AdvReac Unknown Verified 03/13/21 15:12 trihexyphenidyl AdvReac Unknown Verified 03/13/21 15:12 Home Medications Medication Instructions Recorded Confirmed Type melatonin 1 mg tablet 1 mg PO HS #90 tab 03/13/21 03/13/21 Rx pimavanserin 34 mg capsule 34 mg PO DAILY 03/13/21 03/13/21 History (Nuplazid) Patient History Medical History Depression with anxiety Essential tremor Lewy body dementia with behavioral disturbance Sleep disorder Surgical History S/P appendectomy S/P tonsillectomy and adenoidectomy Family History Sister Brain tumor Breast cancer Diabetes Mother Cancer Father Cancer Social History Smoking Status: Unknown if ever smoked Preferred Language: Guinean Communication Ability: Effective Command And Control Required: No Current Living Situation: Family Feels Safe at Home: Yes Safety Concerns: Feels Safe At This Time Assistive Devices: None Review of Systems Review of Systems: Unobtainable due to cognitive status Physical Exam Constitutional: + thin Respiratory: normal respiratory effort; no labored breathing Gastrointestinal (Abdomen): distended Musculoskeletal: Extremities: + muscle atrophy Skin: jaundice Neurologic: Speech / Cognition: + abnormal cognition PG Care Time/CCT Total # of Minutes Spent Total Time Spent: 60 Total Time Spent with Patient: Total time spent is greater than 50% in coordination of care (as documented) at patient's floor/unit and/or counseling patient: symptom management, goals of care Coding Level of Care Code 11600 Initial Inpt Care Lvl 2 Diagnoses Metabolic encephalopathy G93.41 Acute liver failure K72.00 Liver metastasis C78.7 Abnormal CXR R93.89 Lewy body dementia with behavioral disturbance G31.83; F02.81 Palliative care encounter Z51.5
--- NOTE | 2021-03-17 15:30 | Ultrasound Report ---
ULTRASOUND-GUIDED FINE-NEEDLE ASPIRATION THYROID INDICATION: Left supraclavicular lymph node in a patient with a history of a lung mass.. COMPARISON: None available at the time of this dictation. PROCEDURE: The risks, benefits, and alternatives to the procedure were discussed with the patient's w mary. Verbal informed consent was obtained. The patient was placed supine in ultrasound, and the 2.8 c m supraclavicular lymph node was localized by ultrasound and selected for fine needle aspiration. The neck was prepped and draped in the usual sterile fashion. The nodule was aspirated under ultrasound guidance with 2 passes utilizing 25-gauge needles and one pass of a 22-gauge needle. Specimens were r eviewed by the pathologist in real-time and deemed adequate for diagnosis. The patient tolerated the procedure well and left the department in satisfactory condition. IMPRESSION: Completed fine-needle aspiration of a right supraclavicular lymph node as above. ACT 112: Negative or not required by law. Electronically signed by: David Mane M.D. 03/17/2021 3:29 PM
--- NOTE | 2021-03-17 15:52 | Pulmonary Consultation ---
Date of Consultation March 17, 2021 Assessment & Plan (1) Metastatic disease: (2) Hilar mass: (3) Tobacco abuse: (4) Acute encephalopathy: Patient's CT chest and abdomen imaging is concerning for widespread metastatic carcinoma. I discussed the imaging with radiology this afternoon. They were able to perform an ultrasound-guided biopsy of the left supraclavicular lymphadenopathy. Certainly if more tissue was required, we can consider endobronchial ultrasound with biopsies. Given his underlying chronic issues, including Lewy body dementia which appears quite advanced, I think that a more palliative approach such as hospice care is warranted. Appreciate palliative care input. I suspect that he likely has primary lung cancer. He does have a large left hilar mass which appears to be incaseating the left pulmonary artery. He does have some mild airway impingement in the left upper lobe which does not appear to be impairing his oxygenation or ventilation at this time. A consultation with radiation oncology can be considered on an outpatient basis for palliative radiation. He does appear to have acute encephalopathy likely related to his malignancy and acute delirium. Pulmonary will sign off at this time. Please call with questions. Thank you for the consult. History of Present Illness Reason for Consultation: Concern for lung cancer Requesting Physician: Hospitalist service Attending Physician: Tristan Koroma History of Present Illness 61-year-old male with a history of Lewy body dementia, traumatic brain injury and bipolar disorder who was admitted to the hospital due to delirium and combativeness. He presented via EMS. Pulmonology was consulted today due to CT chest findings that are concerning for widespread metastatic carcinoma. I reviewed the CT chest imaging which demonstrated diffuse centrilobular emphysema, masslike consolidation in the left hilum, a 2.2 cm spiculated nodule of the left upper lobe and findings concerning for supraclavicular lymphadenopathy. I spoke with the radiologist Dr. Gomes with regards to a possible ultrasound-guided biopsy of the supraclavicular lymph node. He was able to perform biopsy of the supraclavicular lymph node. The patient also had a CT of his abdomen and pelvis which demonstrated innumerable hepatic lesions concerning for widespread metastatic disease. Palliative care consultation has been placed and it seems that the family is considering possible comfort measures/hospice pending the biopsy results. Patient seen and examined bedside. He is unable to give any history. He has slurred speech. I spoke with the bedside nurse. She relates that he received 2 mg of IV Ativan earlier for the supraclavicular lymph node biopsy. She notes that earlier during the stay he was agitated and wanting to go home. Family is not available at bedside presently given the COVID-19 pandemic. As noted above, palliative care did meet with the patient and discuss the case with patient's significant other. He has a significant smoking history and smokes upwards of 3 packs/day. Allergies Allergy/AdvReac Type Severity Reaction Status Date / Time haloperidol Allergy Severe LETHARGIC Unverified 03/13/21 15:12 propranolol Allergy Unknown Verified 03/13/21 15:12 alprazolam AdvReac Unknown Verified 03/13/21 15:12 clonazepam AdvReac Unknown Verified 03/13/21 15:12 donepezil AdvReac Unknown Verified 03/13/21 15:12 fluvoxamine AdvReac Unknown Verified 03/13/21 15:12 hydroxyzine AdvReac Unknown Verified 03/13/21 15:12 lorazepam AdvReac Unknown Verified 03/13/21 15:12 oxcarbazepine AdvReac Unknown Verified 03/13/21 15:12 risperidone AdvReac Unknown Verified 03/13/21 15:12 tramadol AdvReac Unknown Verified 03/13/21 15:12 trihexyphenidyl AdvReac Unknown Verified 03/13/21 15:12 Home Medications Medication Instructions Recorded Confirmed Type melatonin 1 mg tablet 1 mg PO HS #90 tab 03/13/21 03/13/21 Rx pimavanserin 34 mg capsule 34 mg PO DAILY 03/13/21 03/13/21 History (Nuplazid) Patient History Medical History (Updated 03/17/21 @ 16:20 by Felice Alcaraz MD) Acute encephalopathy Depression with anxiety Essential tremor Hilar mass Lewy body dementia with behavioral disturbance Metastatic disease Sleep disorder Tobacco abuse Surgical History S/P appendectomy S/P tonsillectomy and adenoidectomy Family History Sister Brain tumor Breast cancer Diabetes Mother Cancer Father Cancer Social History Smoking Status: Unknown if ever smoked Preferred Language: Tunisian Communication Ability: Effective Janitor Head Required: No Current Living Situation: Family Feels Safe at Home: Yes Safety Concerns: Feels Safe At This Time Assistive Devices: None Review of Systems Review of Systems: Unobtainable due to cognitive status Physical Exam Physical Exam: Constitutional: Chronically ill and frail appearing male. Appears confused. Eyes: Pupils are equal round and reactive to light. Conjunctivae are normal. Anicteric sclera. Ears nose, mouth and throat: No facial deformities. Scleral icterus noted. Neck: Band-Aid noted on the left supraclavicular region from biopsy site. No bleeding. Respiratory: Clear to auscultation bilaterally. Cardiovascular: Regular rate and rhythm. No murmurs. No edema. Gastrointestinal: Mild tenderness to palpation right upper quadrant. Fullness noted in the right upper quadrant. No guarding. Musculoskeletal: No cyanosis. Patient is able to move all extremities. Strength is 5 out of 5 in the upper and lower extremities. Skin: No rashes, warm dry and intact. Jaundice. Neurologic: Garbled speech. No focal deficits otherwise. Psychiatric: Awake. Garbled speech. PG Care Time/CCT Total # of Minutes Spent Total Time Spent with Patient: Total time spent is greater than 50% in coordination of care (as documented) at patient's floor/unit and/or counseling patient: Coding Level of Care Code 34703 Inpt Consult Level 5 Diagnoses Metastatic disease C79.9 Hilar mass R91.8 Tobacco abuse Z72.0 Acute encephalopathy G93.40
--- NOTE | 2021-03-17 17:30 | Electrocardiogram Report ---
Test Reason : Blood Pressure : / mmHG Vent. Rate : 085 BPM Atrial Rate : 085 BPM P-R Int : 140 ms QRS Dur : 080 ms QT Int : 372 ms P-R-T Axes : 041 017 049 degrees QTc Int : 442 ms Normal sinus rhythm Normal ECG When compared with ECG of 22-AUG-2015 16:16, No significant change was found Confirmed by Zach Villagomez ([id number]) on 03/17/2021 5:29:58 PM Referred By: REFERRED SELF Confirmed By:Bear Villagomez
[2021-03-17] MEDS ORDERED: PIPERACILL/TAZOBAC CONSULT ACTIVE PRN (19:37)
[2021-03-17] MEDS ORDERED: PIPERACILLIN/TAZOBACTAM 3.375 GM in DEXTROSE 5% 100 ML IV ONE (20:00)
[2021-03-18] MEDS: PIPERACILLIN/TAZOBACTAM 3.375 GM in DEXTROSE 5% 100 ML IV SCH ×3 (01:18→17:46)
[2021-03-18] MEDS: LORazepam 2 MG/4 ML VIAL IV PRN ×3 (05:25→17:54)
[2021-03-18 07:15] LABS: Hematocrit (blood only) 40.2 % (42-52); Hemoglobin 13.6 g/dL (14.0-18.0); Mean Corpuscular Hemoglobin 31.6 pg (25-34); Mean Corpuscular Hgb Conc 33.8 g/dL (32-36); Mean Corpuscular Volume 93.3 fL (80-100); Mean Platelet Volume 10.4 fL (7.4-10.4); Platelet Count 212 K/uL (130-400); RDW Coefficient of Variation 16.7 % (11.5-14.5); RDW Standard Deviation 57.2 fL (36.4-46.3); Red Blood Count 4.31 M/uL (4.7-6.1); White Blood Count 8.91 K/uL (4.8-10.8)
[2021-03-18 07:23] LABS: Prothrombin Time 10.4 Seconds (9.0-12.0)
[2021-03-18] MEDS: HEPARIN SOD 5,000 UNIT/0.5 ML VIAL SQ SCH ×2 (07:35→22:00)
[2021-03-18 07:36] LABS: ALC (manual) 0.86 K/uL (1.2-3.4); ANC (manual) 6.96 K/uL (1.4-6.5); Basophils # (manual) 0.08 K/uL (0-0.2); Basophils % (manual) 0.9 %; Lymphocytes # (manual) 0.86 K/uL (1.2-3.4); Lymphocytes % (manual) 9.6 %; Metamyelocytes # (manual) 0.08 K/uL (0-0); Metamyelocytes % (manual) 0.9 %; Monocytes # (manual) 0.86 K/uL (0.11-0.59); Monocytes % (manual) 9.6 %; Myelocytes # (manual) 0.08 K/uL (0-0); Myelocytes % (manual) 0.9 %; Neutrophils # (manual) 6.96 K/uL (1.4-6.5); Neutrophils % (manual) 78.1 %; Target Cells 1+
[2021-03-18 07:44] LABS: Alanine Aminotransferase 140 U/L (12-78); Albumin Globulin Ratio 0.5 (0.9-2); Albumin Level 2.3 gm/dl (3.4-5.0); Alkaline Phosphatase 499 U/L (45-117); Aspartate Aminotransferase 348 U/L (15-37); BUN Creatinine Ratio 16.1 (10-20); Blood Urea Nitrogen 11 mg/dl (7-18); Calcium 8.9 mg/dl (8.5-10.1); Carbon Dioxide 24 mmol/L (21-32); Chloride 102 mmol/L (98-107); Est GFR (African American) 120.3 ml/min; Est GFR (Non-African American) 103.8 ml/min; Globulin 4.5 gm/dl (2.5-4.0); Glucose 86 mg/dl (70-99); Magnesium 2.2 mg/dl (1.8-2.4); Potassium 4.3 mmol/L (3.5-5.1); Sodium 132 mmol/L (136-145); Total Protein 6.8 gm/dl (6.4-8.2)
--- NOTE | 2021-03-18 09:00 | Hospitalist Progress Note ---
Date of Service March 18, 2021 Assessment & Plan (1) Metastatic disease: Plan: Admitted with elevated LFT/liver failure, presumed acute elevation given patient without PCP and rarely seeks out medical attention. Follows Neuro for hx Lewy Body Dementia, most recently seen 03/13 Lives with ex- and they were working on getting placement for worsening confusion/hallucinations Unfortunately, imaging consistent with diffuse metastatic disease, likely pulmonary as primary CT Chest IMPRESSION: 1. A 2.2 cm peripheral spiculated nodule within the left upper lobe with associated mediastinal, left hilar, and left supraclavicular lymphadenopathy. This is consistent with a primary bronchogenic malignancy with metastatic lymphadenopathy. 2. The masslike lymphadenopathy in the left hilum results in occlusion of the left upper lobe segmental bronchus. --> (thankfully no respiratory compromise and on room air currently) 3. A small lytic/destructive metastatic lesion involving the right T3 pedicle and transverse process. 4. A mild superior endplate acute compression fracture at L1. This could be pathologic. 5. Please refer to the same day abdomen and pelvis CT for further evaluation of the hepatic metastases. CTA/P IMPRESSION: 1. Innumerable hepatic lesions resulting in near complete replacement of the normal hepatic parenchyma, hepatomegaly, and pseudocirrhosis. This most likely represents diffuse metastatic disease. 2. Mild focal circumferential thickening within the distal sigmoid colon with an associated inflamed diverticulum. This could represent an acute diverticulitis. However, an underlying colonic mass would be the diagnosis of exclusion. This results in a partial large bowel obstruction with the transition point at this location. Follow-up colonoscopy recommended for further evaluation. 3. There is also mild thickening of the distal esophagus which favors a mild esophagitis. However, this should also be assessed with endoscopy to exclude the less likely possibility of an esophageal lesion. 4. Mild distal paraesophageal, gastrohepatic, and periportal lymphadenopathy. This also likely represents metastatic disease. 5. A 1.7 cm left adrenal gland nodule. GI consulted -- plans initially for ERCP but no CBD dilation and cancelled Pulmonary consulted --> rec radiology for US guided biopsy for supraclavicular node which would stage IV and get diagnosis --> performed afternoon by radiology 03/17, pathology pending Hematology consulted Palliative consulted --MELD 18 Sounds as though ex- would agree more comfortable but not able to contact today and patient remains level I. Unsure if has living will/POA as paperwork not filled out --> Told palliative team children would be taking her camping this weekend as she needed a break and unable to stay with patient given progression towards comfort if that is ultimately decided Cancer markers/CMV/EBV etc pending as ordered on admission but likely 2nd to above Switched to Zosyn (on Unasyn for suspected dental infection as well but possible diverticulitis vs colonic mass as above and broadened coverage) Ativan IVP prn agitation/discomfort -- got 2 doses today. can decrease if effective but seems to be keeping symptoms under control --> Would avoid Haldol in patient with Lewy Body Dementia and this was discontinued Does have evidence of bony disease so if painful would suggest morphine --> denied pain when asked but tender to RUQ on exam -->? any palliative radiation in future for bony pain IVF for supportive care as hasn't eaten -- will try some clears. does have + BS. monitor. D/c IVF and increased diet and tolerating without issue. 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 will consider dose in am if agreeable/worsening Ativan prn as above (4) Abnormal CXR: Plan: Concern for primary oncological process remains at top of diagnostics- consult pulmonary likely 1. Nodular opacities of the left midlung measure up to 1.5 cm. 2. Bilateral hilar enlargement suggestive of adenopathy. Correlation with follow-up chest CT recommended. CT chest as above with evidence for primary lung ca, ?small cell Biopsy done by radiology 03/17 -- pathology pending (5) Tobacco dependence: Plan: Current smoker 2-3 packs per day for many years per X- - CXR as above as such, likely with primary lung ca as above (6) Lewy body dementia with behavioral disturbance: Plan: As above- - Previously on Memantine with planned switch to Nuplazid per most recent note ?Need for MRI brain to eval for brain mets --> will hold off for now given above. no clonus able to be appreciated on exam however patient not cooperative and having legs folded up (7) Infected tooth: Plan: Unable to assess- reportedly given ABX from dentist today - Unasyn 1.5 GM now then q6 --> switched to Zosyn as above for broader abdominal coverage given possible diverticulitis (however likely given everything else could have underlying colon mass) (8) Altered mental status: Plan: 2nd to metastatic disease CT head without acute CVA on admission ?need to pursue brain MRI (9) Acute encephalopathy: Plan: as above ativan prn agitation/aggression (10) Hilar mass: Plan: if needed, reconsult pulm for bronch/biopsy but got supraclavicular node today by radiology on US guided (11) Palliative care encounter: Plan: continued discussion (12) Liver metastasis: Plan: as above (13) Supraclavicular adenopathy: Plan: biopsy as above, path pending Plan: continued inpatient stay ex- demarioing who typically cares for him --> unable to come stay likely placement at d/c and will remain inpatient will need continued conversations if able to reach family/take him home on hospice? --> have called multiple times/voicemail box full remaining inpatient currently Admission and Anticipated Discharge Date Admission Date: March 16, 2021 Supervising Physician Co-Signing Physician Notes Attending Attestation - Chart reviewed in detail, care plan d/w DEANN Lee. I agree w/ the lima components of her documentation. Unfortunate 61yo male with Lewy-Body dementia with radiographic evidence of stage 4 cancer; primary site likely lung; cannot exclude colon as primary. Biopsy of supraclavicular lymph node pending. Best option may be palliative care given the extensive nature of his suspected cancer. Await bx results. Need to coordinate discussions with family - Ms Lee has attempted to contact his family w/o success. Tristan Koroma MD Subjective Patient evaluated this morning. No complaints of pain but has increased distention and is painful to the RUQ on exam. Discussed if painful we will be happy to offer something for pain Remains confused and on antibiotics. Eating/drinking and moving his bowels. No fever,chills, chest pain, shortness of breath, dysuria at this time. Got ativan this morning as he was very restless. Resting comfortably. Review of Systems Review of Systems: All systems reviewed & are unremarkable except as noted in HPI & below Physical Exam Physical Exam: PHYSICAL EXAM: frail appearing, cachectic male, appears older than stated age. confused , falls back asleep easily head is normocephalic, atraumatic, garbled hard to understand speech at times eyes with scleral icterus, pupils equal and reactive no excoriations noted from itching mouth with slightly dry mm (improved) cardiac RRR, systolic murmur gi +BS, tender to palpation RUQ with associated fullness gu no sifuentes supraclavicular lymphadenopathy, bandaid covering most recent bx site, no evidence for bleeding jaundice of skin +hepatomegaly, tender to palpation, soft, +BS seen walking with aides with walker earlier in the morning neuro; alert but not oriented, moves all extremities, not able to evaluate for clonus due to cooperation/agitation Results & Data Results & Data ([facility]) Vital Signs (Past 12 Hours) Vital Signs Temp Pulse Pulse Resp BP Pulse Ox 03/18/21 07:35 36.5 C 91 H 18 115/66 95 03/17/21 22:00 36.5 C 89 16 124/74 96 Laboratory Results 03/18/21 03/18/21 03/18/21 Range/Units 07:06 07:00 07:00 WBC (4.8-10.8) K/uL RBC (4.7-6.1) M/uL Hgb (14.0-18.0) g/dL Hct (42-52) % MCV (80-100) fL MCH (25-34) pg MCHC (32-36) g/dL RDW Std Deviation (36.4-46.3) fL RDW Coeff of Steve (11.5-14.5) % Plt Count (130-400) K/uL MPV (7.4-10.4) fL Neutrophils % (Manual) % Lymphocytes % (Manual) % Monocytes % (Manual) % Basophils % (Manual) % Metamyelocytes % (Man) % Myelocytes % (Man) % Neutrophils # (Manual) (1.4-6.5) K/uL Total Absolute Neuts (1.4-6.5) K/uL Lymphocytes # (Manual) (1.2-3.4) K/uL Total Abs Lymphocytes (1.2-3.4) K/uL Monocytes # (Manual) (0.11-0.59) K/uL Basophils # (Manual) (0-0.2) K/uL Metamyelocytes # (Man) (0-0) K/uL Myelocytes # (Manual) (0-0) K/uL Target Cells PT 10.4 (9.0-12.0) Seconds INR 1.0 (0.9-1.1) Sodium 132 L (136-145) mmol/L Potassium 4.3 (3.5-5.1) mmol/L Chloride 102 (98-107) mmol/L Carbon Dioxide 24 (21-32) mmol/L Anion Gap 6.0 (3-11) BUN 11 (7-18) mg/dl Creatinine 0.68 (0.6-1.4) mg/dl Est Cr Clr Drug Dosing Not Reportable Est GFR ( Amer) 120.3 ml/min Est GFR (Non-Af Amer) 103.8 ml/min BUN/Creatinine Ratio 16.1 (10-20) Glucose 86 (70-99) mg/dl Calcium 8.9 (8.5-10.1) mg/dl Magnesium 2.2 (1.8-2.4) mg/dl Total Bilirubin 6.0 H (0.2-1) mg/dl AST 348 H (15-37) U/L ALT 140 H (12-78) U/L Alkaline Phosphatase 499 H (45-117) U/L Ammonia 19.9 (11-32) umol/L Total Protein 6.8 (6.4-8.2) gm/dl Albumin 2.3 L (3.4-5.0) gm/dl Globulin 4.5 H (2.5-4.0) gm/dl Albumin/Globulin Ratio 0.5 L (0.9-2) Hepatitis C Antibody (Neg) 03/18/21 03/17/21 Range/Units 07:00 06:06 WBC 8.91 (4.8-10.8) K/uL RBC 4.31 L (4.7-6.1) M/uL Hgb 13.6 L (14.0-18.0) g/dL Hct 40.2 L (42-52) % MCV 93.3 (80-100) fL MCH 31.6 (25-34) pg MCHC 33.8 (32-36) g/dL RDW Std Deviation 57.2 H (36.4-46.3) fL RDW Coeff of Steve 16.7 H (11.5-14.5) % Plt Count 212 (130-400) K/uL MPV 10.4 (7.4-10.4) fL Neutrophils % (Manual) 78.1 % Lymphocytes % (Manual) 9.6 % Monocytes % (Manual) 9.6 % Basophils % (Manual) 0.9 % Metamyelocytes % (Man) 0.9 % Myelocytes % (Man) 0.9 % Neutrophils # (Manual) 6.96 H (1.4-6.5) K/uL Total Absolute Neuts 6.96 H (1.4-6.5) K/uL Lymphocytes # (Manual) 0.86 L (1.2-3.4) K/uL Total Abs Lymphocytes 0.86 L (1.2-3.4) K/uL Monocytes # (Manual) 0.86 H (0.11-0.59) K/uL Basophils # (Manual) 0.08 (0-0.2) K/uL Metamyelocytes # (Man) 0.08 H (0-0) K/uL Myelocytes # (Manual) 0.08 H (0-0) K/uL Target Cells 1+ PT (9.0-12.0) Seconds INR (0.9-1.1) Sodium (136-145) mmol/L Potassium (3.5-5.1) mmol/L Chloride (98-107) mmol/L Carbon Dioxide (21-32) mmol/L Anion Gap (3-11) BUN (7-18) mg/dl Creatinine (0.6-1.4) mg/dl Est Cr Clr Drug Dosing Est GFR ( Amer) ml/min Est GFR (Non-Af Amer) ml/min BUN/Creatinine Ratio (10-20) Glucose (70-99) mg/dl Calcium (8.5-10.1) mg/dl Magnesium (1.8-2.4) mg/dl Total Bilirubin (0.2-1) mg/dl AST (15-37) U/L ALT (12-78) U/L Alkaline Phosphatase (45-117) U/L Ammonia (11-32) umol/L Total Protein (6.4-8.2) gm/dl Albumin (3.4-5.0) gm/dl Globulin (2.5-4.0) gm/dl Albumin/Globulin Ratio (0.9-2) Hepatitis C Antibody Neg (Neg) Diagnostic Findings Abdomen/Pelvis CT 03/16/21 21:[address] WITHOUT CONTRAST CT DOSE: 722.61 mGycm HISTORY: Abnormal ultrasound. Abnormal LFTs. evaluate for masses/liver mets TECHNIQUE: Multiaxial CT images of the abdomen and pelvis were performed without contrast. A dose lowering technique was utilized adhering to the principles of ALARA. COMPARISON STUDY: Abdominal ultrasound 03/16/2021. FINDINGS: Please refer to the same day chest CT for further evaluation of the lung bases. No pneumoperitoneum. No pneumatosis. No suspicious lytic or blastic osseous lesions. There is a mild superior endplate compression fracture at L1 with mild paravertebral edema. This is likely acute. No associated retropulsion or central canal narrowing. Mild thickening of the distal esophagus. There is a single prominent distal paraesophageal lymph node measuring 8 mm on image 52. The liver is enlarged with innumerable hypodense lesions resulting in near complete replacement of the normal hepatic parenchyma. This accounts for the nodular contour to the liver consistent with pseudocirrhosis. There is trace perihepatic ascites. The gallbladder is contracted but appears unremarkable. The unenhanced pancreas, spleen, and right adrenal gland are unremarkable. A 1.7 cm left adrenal gland nodule. No renal stones or hydronephrosis. There is mild periportal and gastrohepatic lymphadenopathy. Dominant periportal lymph node measures 2 cm. The bladder is unremarkable. No pelvic free fluid. Normal caliber abdominal aorta. There is a left circumaortic renal vein. Mild central ventral thickening at the distal sigmoid colon with an inflamed diverticulum mild pericolonic fat stranding. This is seen on image 315. There is mild narrowing at this location resulting in a partial large bowel obstruction with a large amount of stool within the proximal colon. No dilated loops of small bowel identified. IMPRESSION: 1. Innumerable hepatic lesions resulting in near complete replacement of the normal hepatic parenchyma, hepatomegaly, and pseudocirrhosis. This most likely represents diffuse metastatic disease. 2. Mild focal circumferential thickening within the distal sigmoid colon with an associated inflamed diverticulum. This could represent an acute diverticulitis. However, an underlying colonic mass would be the diagnosis of exclusion. This results in a partial large bowel obstruction with the transition point at this location. Follow-up colonoscopy recommended for further evaluation. 3. There is also mild thickening of the distal esophagus which favors a mild esophagitis. However, this should also be assessed with endoscopy to exclude the less likely possibility of an esophageal lesion. 4. Mild distal paraesophageal, gastrohepatic, and periportal lymphadenopathy. This also likely represents metastatic disease. 5. A 1.7 cm left adrenal gland nodule. ACT 112: Negative or not required by law. Electronically signed by: Jaskaran Gomes M.D. 03/17/2021 10:[address] 03/16/21 21:23 CT chest diagnostic wo con CT DOSE: 501.88 mGycm HISTORY: Abnormal chest x-ray. evaluate lung nodules and hilar adenopathy TECHNIQUE: Multiaxial CT images of the chest were performed without contrast. A dose lowering technique was utilized adhering to the principles of ALARA. COMPARISON: Chest 03/16/2021. FINDINGS: No pneumothorax. No pleural effusions. A right azygos lobe is noted. There is moderate emphysema. There is a peripheral spiculated 2.2 cm nodule within the left upper lobe on image 97. There are few tiny adjacent satellite nodules. A few bibasilar densities favor atelectasis. There is trace mucoid material within the trachea. No pleural or pericardial effusions. The heart is normal in size. Mild thickening of the distal esophagus is again noted. Please refer the same day abdomen and pelvis CT for further elevation of the hepatic masses. There is left sternoclavicular lymphadenopathy measuring up to 2.8 cm. Normal caliber thoracic aorta. No right hilar lymphadenopathy. Masslike lymphadenopathy within the left hilum with associated prevascular and AP window lymphadenopathy. The left hilar masslike adenopathy measures approximately 6 cm and results in occlusion of a left upper lobe segmental bronchus. There is mild superior endplate compression fracture at L1. This could be pathologic. There is a lytic/destructive lesion involving the right T3 pedicle and transverse process IMPRESSION: 1. A 2.2 cm peripheral spiculated nodule within the left upper lobe with associated mediastinal, left hilar, and left supraclavicular lymphadenopathy. This is consistent with a primary bronchogenic malignancy with metastatic lymphadenopathy. 2. The masslike lymphadenopathy in the left hilum results in occlusion of the left upper lobe segmental bronchus. 3. A small lytic/destructive metastatic lesion involving the right T3 pedicle and transverse process. 4. A mild superior endplate acute compression fracture at L1. This could be pathologic. 5. Please refer to the same day abdomen and pelvis CT for further evaluation of the hepatic metastases. ACT 112: Negative or not required by law. Electronically signed by: Jaskaran Gomes M.D. 03/17/2021 10:44 AM Aspiration 03/17/21 13:19 ULTRASOUND-GUIDED FINE-NEEDLE ASPIRATION THYROID INDICATION: Left supraclavicular lymph node in a patient with a history of a lung mass.. COMPARISON: None available at the time of this dictation. PROCEDURE: The risks, benefits, and alternatives to the procedure were discussed with the patient's . Verbal informed consent was obtained. The patient was placed supine in ultrasound, and the 2.8 cm supraclavicular lymph node was localized by ultrasound and selected for fine needle aspiration. The neck was prepped and draped in the usual sterile fashion. The nodule was aspirated under ultrasound guidance with 2 passes utilizing 25-gauge needles and one pass of a 22-gauge needle. Specimens were reviewed by the pathologist in real-time and deemed adequate for diagnosis. The patient tolerated the procedure well and left the department in satisfactory condition. IMPRESSION: Completed fine-needle aspiration of a right supraclavicular lymph node as above. ACT 112: Negative or not required by law. Electronically signed by: David Mane M.D. 03/17/2021 3:29 PM PG Care Time/CCT Total # of Minutes Spent Total Time Spent with Patient: Total time spent is greater than 50% in coordination of care (as documented) at patient's floor/unit and/or counseling patient: Coding Level of Care Code 65267 Subseq Hosp Care Lvl 2 Diagnoses Metastatic disease C79.9 Elevated liver enzymes R74.8 Metabolic encephalopathy G93.41 Abnormal CXR R93.89 Tobacco dependence F17.200 Lewy body dementia with behavioral disturbance G31.83; F02.81 Infected tooth K04.7 Altered mental status R41.82 Altered mental status type: unspecified Acute encephalopathy G93.40 Hilar mass R91.8 Palliative care encounter Z51.5 Liver metastasis C78.7 Supraclavicular adenopathy R59.0 (1) Altered mental status Altered mental status type: unspecified Qualified Code(s): R41.82 - Altered mental status, unspecified
--- NOTE | 2021-03-18 11:58 | Consultation Report ---
MEDICAL ONCOLOGY CONSULTATION DATE OF SERVICE: 03/18/2021. REASON FOR CONSULTATION: Metastatic carcinoma, primary unknown, suspected pulmonary origin. HISTORY OF PRESENT ILLNESS: The patient is a pleasant, unfortunate, 61-year-old gentleman who was admitted to [facility] on 03/16/2021 with increased combativeness and delirium over the past couple of weeks. The patient apparently has been incontinent of stool and urine, all this as per his ex- who he continues to live with. He has been experiencing visual hallucinations. Apparently, he has history of Lewy body dementia with hallucinations and recently had a neurology appointment in early March. The patient has a mildly jaundiced tint to him. I was unable to extract much information from the patient and most of what is being described is per medical record. He was subsequently brought to the emergency room, underwent extensive laboratory and radiographic testing. CT scan of the chest, abdomen, and pelvis reveals a 2.2 peripheral spiculated nodule within the left upper lobe with associated mediastinal left hilar and left supraclavicular lymphadenopathy which was ultimately biopsied. There is a small lytic destructive metastatic lesion involving T3 pedicle and transverse process and mild endplate acute compression fracture involving L1. Abdomen and pelvis reveals innumerable hepatic lesions with almost complete replacement of normal hepatic parenchyma. Mild focal circumferential thickening within the distal colon with associated inflamed diverticulum. Mid distal paraesophageal, gastrohepatic, and periportal lymphadenopathy, also thought to represent metastatic disease. Lastly, there is a 1.7 cm left adrenal gland nodule. Again, I presented to the patient at bedside. He is a man of few words and only answered a few direct questions. Unclear at this juncture whether this gentleman can actually make a coherent medical decision and before offering treatment, would like to discuss further with the ex- and any other family members willing to contribute further information. This gentleman apparently does not readily go to physicians. PAST MEDICAL HISTORY: Major depressive disorder with anxiety, essential tremor, Lewy body dementia with behavioral disturbance and sleep disorder. PAST SURGICAL HISTORY: Includes appendectomy and tonsillectomy as well as adenoidectomy. MEDICATIONS: Pimavanserin 34 mg p.o. q. daily, melatonin 1 mg p.o. at bedtime. ALLERGIES: HAS MULTIPLE ALLERGIES INCLUDING HALOPERIDOL, PROPRANOLOL, ALPRAZOLAM, CLONAZEPAM, DONEPEZIL, FLUVOXAMINE, HYDROXYZINE, LORAZEPAM, OXCARBAZEPINE, RISPERIDONE, TRAMADOL, AND TRIHEXYPHENIDYL. FAMILY HISTORY: Sister from metastatic breast cancer, mother also suffered from an unknown cancer as did father. SOCIAL HISTORY: He is a lifelong smoker, apparently lives with his ex-. Very little extra information extracted from the patient himself. REVIEW OF SYSTEMS: Unable because of the patient's mental status. PHYSICAL EXAMINATION: Also limited due to lack of cooperation. GENERAL: A 61-year-old gentleman, lying in left lateral recumbent position. He is awake and alert and again only answers a couple of direct questions. VITAL SIGNS: Temperature 36.5, pulse 91, respiratory rate 18, blood pressure 115/66. SKIN: Mildly jaundiced. Could not appreciate any lesions or rashes otherwise. HEENT: Appears to be atraumatic, normocephalic. Ocular examination not performed. Nares are patent. Throat not performed. NECK: Supple. No JVD or thyromegaly. HEART: Regular rate and rhythm. LUNGS: Clear to auscultation. ABDOMEN: Soft, nontender, nondistended. EXTREMITIES: No clubbing, cyanosis or edema. NEUROLOGIC: Appears to be grossly intact. LABORATORY DATA: WBC count 8910, hemoglobin 13.6, platelet count 212,000. Sodium 132, potassium 4.3, chloride 102, carbon dioxide 24, creatinine 0.68, BUN 11, total bilirubin 6, AST 348, ALT 140, alkaline phosphatase 499, albumin 2.3. RADIOGRAPHIC DATA: As per HPI. IMPRESSION: 1. Metastatic carcinoma, primary unknown (suspect lung origin). 2. Elevated liver transaminases. 3. Metabolic/hepatic encephalopathy. 4. Lewy body dementia with behavioral disturbance. 5. Tobacco dependence. PLAN: I visited with the patient at bedside this morning. With a few direct answers I was able to extract the patient I believe understands he suffers from incurable metastatic disease, but might be interested in pursuing salvage treatment. According to the hospitalist service, biopsy of the left supraclavicular lymph node was obtained and will await results. PD-L1 analysis would be helpful perhaps to suggest immunotherapy as salvage. There are several other combination regimens. I do not have a very good handle on this gentleman's overall performance status and thus would be helpful to talk to family members before making a definitive decision on treatment moving forward. Clearly, he has got extensive tumor burden and see his survival measured in weeks at best, perhaps 1 month. Ultimately, may not be worthwhile exposing him to therapy at this juncture. I agree with current medical management and nothing further for me to offer at this time. I invited the patient to reconvene with me once he is ambulatory, prefer with family members, to engage in fruitful discussion. Thank you very much for allowing me to participate in his care. I will await confirmation of diagnosis before making specific treatment recommendations. Job ID: [id number] TRACY
[2021-03-19] MEDS: PIPERACILLIN/TAZOBACTAM 3.375 GM in DEXTROSE 5% 100 ML IV SCH ×3 (02:53→17:44)
[2021-03-19] MEDS: HEPARIN SOD 5,000 UNIT/0.5 ML VIAL SQ SCH ×2 (07:41→20:26)
[2021-03-19] MEDS: LORazepam 2 MG/4 ML VIAL IV PRN (08:06)
--- NOTE | 2021-03-19 08:55 | Hospitalist Progress Note ---
Date of Service March 19, 2021 Assessment & Plan (1) Metastatic disease: Plan: Admitted with elevated LFT/liver failure, presumed acute elevation given patient without PCP and rarely seeks out medical attention. Follows Neuro for hx Lewy Body Dementia, most recently seen 03/13 Lives with ex- and they were working on getting placement for worsening confusion/hallucinations Unfortunately, imaging consistent with diffuse metastatic disease, likely pulmonary as primary CT Chest IMPRESSION: 1. A 2.2 cm peripheral spiculated nodule within the left upper lobe with associated mediastinal, left hilar, and left supraclavicular lymphadenopathy. This is consistent with a primary bronchogenic malignancy with metastatic lymphadenopathy. 2. The masslike lymphadenopathy in the left hilum results in occlusion of the left upper lobe segmental bronchus. --> (thankfully no respiratory compromise and on room air currently) 3. A small lytic/destructive metastatic lesion involving the right T3 pedicle and transverse process. 4. A mild superior endplate acute compression fracture at L1. This could be pathologic. 5. Please refer to the same day abdomen and pelvis CT for further evaluation of the hepatic metastases. CTA/P IMPRESSION: 1. Innumerable hepatic lesions resulting in near complete replacement of the normal hepatic parenchyma, hepatomegaly, and pseudocirrhosis. This most likely represents diffuse metastatic disease. 2. Mild focal circumferential thickening within the distal sigmoid colon with an associated inflamed diverticulum. This could represent an acute diverticulitis. However, an underlying colonic mass would be the diagnosis of exclusion. This results in a partial large bowel obstruction with the transition point at this location. Follow-up colonoscopy recommended for further evaluation. 3. There is also mild thickening of the distal esophagus which favors a mild esophagitis. However, this should also be assessed with endoscopy to exclude the less likely possibility of an esophageal lesion. 4. Mild distal paraesophageal, gastrohepatic, and periportal lymphadenopathy. This also likely represents metastatic disease. 5. A 1.7 cm left adrenal gland nodule. GI consulted -- plans initially for ERCP but no CBD dilation and cancelled Pulmonary consulted --> rec radiology for US guided biopsy for supraclavicular node which would stage IV and get diagnosis --> performed afternoon by radiology 03/17, pathology pending Hematology consulted -- need tissue, PD-L1 ref testing added Palliative consulted --MELD 18 --> ex- (who cares for him) to be in tomorrow morning for visitation -- to discuss with palliative to arrange for meeting if possible? Cancer markers/CMV/EBV etc pending as ordered on admission but likely 2nd to above Switched to Zosyn (on Unasyn for suspected dental infection as well but possible diverticulitis vs colonic mass as above and broadened coverage) --> continue for now. consider Augmentin tomorrow for less IV? Ativan IVP prn agitation/discomfort -- got 1 doses today. will decrease to 1mg prn as has been relatively calm despite confusion. less agitation --> Would avoid Haldol in patient with Lewy Body Dementia and this was discontinued Does have evidence of bony disease so if painful would suggest morphine --> denied pain when asked but tender to RUQ on exam -->? any palliative radiation in future for bony pain. further discussion with ex- tomorrow Tolerating diet without issue and had been moving bowels. +BS on exam Has not needed anything for pain and seemed to be comfortable on exam Will need placement given above and ex not able to currently take care of her -- further discussions Saturday. Arranged with coordinator to allor visitation from - and would appreciate palliative input/discussions for possible discussion of hospice given diffuse metastatic disease. Patient did voice "I dont' want to have cancer" today and did discuss chemo/xrt for symptoms but would need tissue dx. Biopsy from supraclavicular node done on 03/17 pending Continue to monitor (2) Elevated liver enzymes: Plan: 2nd to above TB 6.0--> 4.4 --> 6 --> 6.8 AST 331--> 150--> 348 --> 358 ALT 158--> 150--> 140 --> 137 ALP 526--> 485--> 499--> 484 Ammonia 46--> 19.9 Trend (3) Metabolic encephalopathy: Plan: as above Ammonia 46 and no lactulose given at this time. will consider dose in am if agreeable/worsening --> ammonia wnl on repeat and patient moving bowels more clear today but still with underlying LBD Ativan prn as above (4) Abnormal CXR: Plan: Concern for primary oncological process remains at top of diagnostics- consult pulmonary likely 1. Nodular opacities of the left midlung measure up to 1.5 cm. 2. Bilateral hilar enlargement suggestive of adenopathy. Correlation with follow-up chest CT recommended. CT chest as above with evidence for primary lung ca, ?small cell Biopsy done by radiology 03/17 -- pathology pending (5) Tobacco dependence: Plan: Current smoker 2-3 packs per day for many years per X- - CXR as above as such, likely with primary lung ca as above (6) Lewy body dementia with behavioral disturbance: Plan: As above- - Previously on Memantine with planned switch to Nuplazid per most recent note ?if LBD vs brain mets --> will hold off for now given above. no clonus able to be appreciated on exam however patient not cooperative and having legs folded up (7) Infected tooth: Plan: Unable to assess- reportedly given ABX from dentist -- no infection appreciated - Unasyn switched to Zosyn as above for broader abdominal coverage given possible diverticulitis (however likely given everything else could have underlying colon mass) (8) Altered mental status: Plan: 2nd to metastatic disease CT head without acute CVA on admission ?need to pursue brain MRI (9) Acute encephalopathy: Plan: as above ativan prn agitation/aggression (10) Hilar mass: Plan: if needed, reconsult pulm for bronch/biopsy but got supraclavicular node today by radiology on US guided (11) Palliative care encounter: Plan: continued discussion (12) Liver metastasis: Plan: as above (13) Supraclavicular adenopathy: Plan: biopsy as above, path pending Plan: continue Zosyn as above, Ativan prn agitation/aggression likely placement at d/c and will remain inpatient -- pending pathology decisions to be made regarding treatment plan. Hematology already on consult. Could also consider XRT for palliation. MELD 18 and candidate for hospice however patient without ability to make that decision currently with confusion and is cared for by ex- (to visit in AM as above) and they do not have a POA or advance directive or have talked about this in the past continued inpatient stay Admission and Anticipated Discharge Date Admission Date: March 16, 2021 Supervising Physician Co-Signing Physician Notes Attending Attestation - Chart reviewed in detail, care plan d/w DEANN Lee. I agree w/ the [place] components of her documentation. Unfortunate 61yo male with Lewy-Body dementia with radiographic evidence of stage 4 cancer; primary site likely lung; cannot exclude colon as primary. Biopsy of supraclavicular lymph node pending. Given the extensive nature of the cancer very appropriate to involve the palliative care team to discuss/refine goals of care. Appreciate all care team members including heme/onc, GI, etc. Tristan Koroma MD Subjective Patient evlaluated this afternoon. More alert. Confusion at times and wanting to put his shoes/socks on as he wants to go home. Discussed waiting for pathology and possible placement but if wishes are to be comfortable can consider palliative treatment for symptoms vs home with hospice. He states "I dont' want to have cancer anymore". Discussed given extensive nature, not able for cure but options available for palliation of symptoms. Eating/drinking no issue. Would like nicotine patch. Fixated on needle box and wanting to empty this at times -- reassurance provided. Got dose of ativan this morning but nothing yet. Denied any pain or need for medication and was much less tender on exam today. No chest pain or shortness of breath. No nausea or vomiting. Limited ROS at times due to cognitive state. Discussion with ex-. No advance directive or POA paperwork. They had never talked about code status in past. Discussed biopsy performed and pathology pending. Able to arrange for visitation for tomorrow between 8-noon for an hour and to alert when here for possible discussion with palliative regarding options to help with patient and understanding/available options, given recent pursuing placement as he was beginning to be too much for her to handle. Questions/concerns addressed at this time. Review of Systems Review of Systems: All systems reviewed & are unremarkable except as noted in HPI & below and Unobtainable due to cognitive status Physical Exam Physical Exam: PHYSICAL EXAM: frail appearing, cachectic male, appears older than stated age. confused at times. Answers some questions appropriately. less garbled today and easier to understand , but short answers. paranoid of needle box and wanting to empty this eyes with scleral icterus, pupils equal and reactive no excoriations noted from itching mmm, slightly dry cardiac RRR, systolic murmur, no peripheral edema gi +BS, minimal tenderness but only with deep palpation, hepatomegaly with nodularity and associated fullness appreciated supraclavicular lymphadenopathy, bandaid covering most recent bx site, no evidence for bleeding jaundice of skin seen walking with aides with walker earlier in the morning, unsteady gait neuro; alert, oriented x 1-2 at times, not situation, not able to evaluate for clonus due to cooperation Results & Data Results & Data ([facility]) Vital Signs (Past 12 Hours) Vital Signs Temp Pulse Pulse Resp BP Pulse Ox 03/19/21 07:20 36.5 C 91 H 20 122/70 96 03/18/21 23:55 36.2 C L 94 H 16 104/71 96 Laboratory Results 03/19/21 03/19/21 03/19/21 Range/Units 08:43 08:43 08:43 WBC 8.43 (4.8-10.8) K/uL RBC 4.40 L (4.7-6.1) M/uL Hgb 13.7 L (14.0-18.0) g/dL Hct 40.7 L (42-52) % MCV 92.5 (80-100) fL MCH 31.1 (25-34) pg MCHC 33.7 (32-36) g/dL RDW Std Deviation 58.2 H (36.4-46.3) fL RDW Coeff of Steve 17.2 H (11.5-14.5) % Plt Count 229 (130-400) K/uL MPV 10.8 H (7.4-10.4) fL Neutrophils % (Manual) 82.7 % Lymphocytes % (Manual) 6.1 % Monocytes % (Manual) 7.8 % Eosinophils % (Manual) 1.7 % Myelocytes % (Man) 1.7 % Neutrophils # (Manual) 6.97 H (1.4-6.5) K/uL Total Absolute Neuts 6.97 H (1.4-6.5) K/uL Lymphocytes # (Manual) 0.51 L (1.2-3.4) K/uL Total Abs Lymphocytes 0.51 L (1.2-3.4) K/uL Monocytes # (Manual) 0.66 H (0.11-0.59) K/uL Eosinophils # (Manual) 0.14 (0-0.5) K/uL Myelocytes # (Manual) 0.14 H (0-0) K/uL Target Cells 1+ PT 10.8 (9.0-12.0) Seconds INR 1.1 (0.9-1.1) Sodium 133 L (136-145) mmol/L Potassium 4.1 (3.5-5.1) mmol/L Chloride 100 (98-107) mmol/L Carbon Dioxide 24 (21-32) mmol/L Anion Gap 9.0 (3-11) BUN 11 (7-18) mg/dl Creatinine 0.91 (0.6-1.4) mg/dl Est Cr Clr Drug Dosing Not Reportable Est GFR ( Amer) 105.8 ml/min Est GFR (Non-Af Amer) 91.3 ml/min BUN/Creatinine Ratio 12.0 (10-20) Glucose 103 H (70-99) mg/dl Calcium 8.9 (8.5-10.1) mg/dl Magnesium 2.2 (1.8-2.4) mg/dl Total Bilirubin 6.8 H (0.2-1) mg/dl AST 358 H (15-37) U/L ALT 137 H (12-78) U/L Alkaline Phosphatase 484 H (45-117) U/L Total Protein 6.9 (6.4-8.2) gm/dl Albumin 2.3 L (3.4-5.0) gm/dl Globulin 4.6 H (2.5-4.0) gm/dl Albumin/Globulin Ratio 0.5 L (0.9-2) PG Care Time/CCT Total # of Minutes Spent Total Time Spent with Patient: Total time spent is greater than 50% in coordination of care (as documented) at patient's floor/unit and/or counseling patient: Coding Level of Care Code 12425 Subseq Hosp Care Lvl 2 Diagnoses Metastatic disease C79.9 Elevated liver enzymes R74.8 Metabolic encephalopathy G93.41 Abnormal CXR R93.89 Tobacco dependence F17.200 Lewy body dementia with behavioral disturbance G31.83; F02.81 Infected tooth K04.7 Altered mental status R41.82 Altered mental status type: unspecified Acute encephalopathy G93.40 Hilar mass R91.8 Palliative care encounter Z51.5 Liver metastasis C78.7 Supraclavicular adenopathy R59.0 (1) Altered mental status Altered mental status type: unspecified Qualified Code(s): R41.82 - Altered mental status, unspecified
[2021-03-19 09:14] LABS: Hematocrit (blood only) 40.7 % (42-52); Hemoglobin 13.7 g/dL (14.0-18.0); Mean Corpuscular Hemoglobin 31.1 pg (25-34); Mean Corpuscular Hgb Conc 33.7 g/dL (32-36); Mean Corpuscular Volume 92.5 fL (80-100); Mean Platelet Volume 10.8 fL (7.4-10.4); Platelet Count 229 K/uL (130-400); RDW Coefficient of Variation 17.2 % (11.5-14.5); RDW Standard Deviation 58.2 fL (36.4-46.3); White Blood Count 8.43 K/uL (4.8-10.8)
[2021-03-19 09:22] LABS: INR 1.1 (0.9-1.1); Prothrombin Time 10.8 Seconds (9.0-12.0)
[2021-03-19 09:37] LABS: Alanine Aminotransferase 137 U/L (12-78); Albumin Globulin Ratio 0.5 (0.9-2); Albumin Level 2.3 gm/dl (3.4-5.0); Alkaline Phosphatase 484 U/L (45-117); Aspartate Aminotransferase 358 U/L (15-37); Bilirubin,Total 6.8 mg/dl (0.2-1); Blood Urea Nitrogen 11 mg/dl (7-18); Calcium 8.9 mg/dl (8.5-10.1); Carbon Dioxide 24 mmol/L (21-32); Chloride 100 mmol/L (98-107); Est GFR (African American) 105.8 ml/min; Est GFR (Non-African American) 91.3 ml/min; Globulin 4.6 gm/dl (2.5-4.0); Glucose 103 mg/dl (70-99); Magnesium 2.2 mg/dl (1.8-2.4); Potassium 4.1 mmol/L (3.5-5.1); Sodium 133 mmol/L (136-145); Total Protein 6.9 gm/dl (6.4-8.2)
[2021-03-19 09:40] LABS: ALC (manual) 0.51 K/uL (1.2-3.4); ANC (manual) 6.97 K/uL (1.4-6.5); Eosinophils # (manual) 0.14 K/uL (0-0.5); Eosinophils % (manual) 1.7 %; Lymphocytes # (manual) 0.51 K/uL (1.2-3.4); Lymphocytes % (manual) 6.1 %; Monocytes # (manual) 0.66 K/uL (0.11-0.59); Monocytes % (manual) 7.8 %; Myelocytes # (manual) 0.14 K/uL (0-0); Myelocytes % (manual) 1.7 %; Neutrophils # (manual) 6.97 K/uL (1.4-6.5); Neutrophils % (manual) 82.7 %; Target Cells 1+
[2021-03-19] MEDS: NICOTINE 14 MG/24 HR PATCH TD SCH (15:23)
[2021-03-19] MEDS ORDERED: PATIENT'S HEIGHT AND/OR WEIGHT NEEDED SCH (15:45)
[2021-03-20] MEDS: LORazepam 1 MG/2 ML VIAL IV PRN ×2 (01:08→17:25)
[2021-03-20] MEDS: PIPERACILLIN/TAZOBACTAM 3.375 GM in DEXTROSE 5% 100 ML IV SCH ×2 (02:58→10:58)
[2021-03-20] MEDS: HEPARIN SOD 5,000 UNIT/0.5 ML VIAL SQ SCH (07:22)
[2021-03-20] MEDS: NICOTINE 14 MG/24 HR PATCH TD SCH (07:28)
[2021-03-20 10:57] LABS: AFP Tumor Marker Serum 2.9 ng/mL (<6.1)
[2021-03-20] MEDS ORDERED: MoRPHine SULFATE 2 MG/ML CARP IV PRN (12:30)
[2021-03-20] MEDS ORDERED: GLYCOPYRROLATE 0.2 MG/ML VIAL IV PRN (12:30)
--- NOTE | 2021-03-20 12:50 | Palliative Care Progress Note ---
Date of Service March 20, 2021 Assessment & Plan (1) Altered mental status: Plan: With liver failure and Lewy Body Dementia (2) Palliative care encounter: Plan: I met with Mansoor Noel's . She has noticed significant functional decline in the last two weeks. She has even seen decline since admission. We talked about biopsy results still pending but that his overall picture is consistent with extensively metastatic cancer. Reviewed Dr. Jacques's note. Discussed prognosis which is likely days to weeks at this point. She is not surprised by this. "He smoke one cigarette after another". She would not want him to have treatment at this time and would like to focus on comfort directed care. We reviewed that would involve no further labs or testing, medications only for his comfort. She agrees with this. We discussed code status. She would want him to be DNR/DNI. This was changed to reflect her wishes. While she is his ex-. He does not have children. He has sisters but per Cristina, they are estranged. He has been living with her and she has been his caregiver. We discussed taking him home with hospice versus SNF placement. She was not able to care for him at home prior to admission due to agitation. She does not feel that she could watch him at home and would prefer SNF placement. Dr. Jacobs aware. (3) Acute liver failure: (4) Liver metastasis: (5) Hilar mass: (6) Lewy body dementia with behavioral disturbance: Admission and Anticipated Discharge Date Admission Date: March 16, 2021 Subjective Somnolent but arousable. Tells me that he's going [facility]. Complains of pain in his tooth. Denies pain in other locations or dyspnea. I told him that his was coming to visit today. He was able to tell me her name. Review of Systems Review of Systems: [place] Symptom Assessment Scale Pain 1/3 Dyspnea 0/3 Anxiety 0/3 Fatigue 2/3 Nausea 0/3 Drowsiness 1/3 Palliative Performance Score 40% Physical Exam Constitutional: no acute distress Respiratory: + uses accessory muscles Cardiovascular: Rate/Rhythm: regular rate and regular rhythm Neurologic: Speech / Cognition: + abnormal cognition Psychiatric: Orientation: oriented to person Results & Data ([facility]) Vital Signs (Past 12 Hours) Vital Signs Temp Pulse Resp BP Pulse Ox 03/20/21 07:03 98.4 F 89 16 128/80 95 03/20/21 05:40 97.3 F L 97 H 14 133/78 95 PG Care Time/CCT Total # of Minutes Spent Total Time Spent: 70 Total Time Spent with Patient: Total time spent is greater than 50% in coordination of care (as documented) at patient's floor/unit and/or counseling patient:prognosis, goals of care, code status, symptom management, family e ducation and support Coding Level of Care Code 12526 Subseq Hosp Care Lvl 3 Diagnoses Liver metastasis C78.7 Altered mental status R41.82 Altered mental status type: unspecified Acute liver failure K72.00 Lewy body dementia with behavioral disturbance G31.83; F02.81 Hilar mass R91.8 Palliative care encounter Z51.5 (1) Altered mental status Altered mental status type: unspecified Qualified Code(s): R41.82 - Altered mental status, unspecified
[2021-03-20 13:46] LABS: EBV Virus Capsid Ag IgG Ab >750.00 U/mL
--- NOTE | 2021-03-20 19:23 | Hospitalist Progress Note ---
Date of Service March 20, 2021 Assessment & Plan (1) Metastatic disease: Plan: Supraclavicular node biopsy done 03/17results pending. That said, after further discussion with palliative and patient's ex-, comfort appears to be the goalwhich given his progressed dementia seems to be an extremely reasonable course of care. (2) Elevated liver enzymes: Plan: Appears to be due to above Trend (3) Metabolic encephalopathy: Plan: Hard to tell how much would be an acute metabolic encephalopathy from his metastatic disease and liver infiltrate, and how much is really just his baseline dementia. Although today is the first that I met him, his behaviors seem most consistent with a baseline dementia. Ativan prn as above (4) Abnormal CXR: Plan: see abovebiopsy pending (5) Tobacco dependence: Plan: Current smoker 2-3 packs per day for many years per X- Fortunately not really showing any overt nicotine withdrawal (6) Lewy body dementia with behavioral disturbance: Plan: Supportive care, calm environment. (7) Infected tooth: Plan: No complaints of tooth pain to me today. Palliative plan of care overall. (8) Altered mental status: Plan: See above (9) Acute encephalopathy: Plan: See above (10) Hilar mass: Plan: See above (11) Palliative care encounter: Plan: continued discussion with Dr. Rocha appreciated (12) Liver metastasis: Plan: as above (13) Supraclavicular adenopathy: Plan: biopsy as above, path pending Plan: Comfort care, anticipate placement with comfort/palliative emphasis Admission and Anticipated Discharge Date Admission Date: March 16, 2021 Subjective No meaningful HPI or review of systems obtainable from patient, he keeps referring to me as someone named Franklin that he knows. Ex- present at the bedside, she notes that in discussions with Dr. Rocha, they have opted to forego treatment, and would prefer to have him placed with a comfort care emphasis. Review of Systems Review of Systems: Unobtainable due to cognitive status Physical Exam Physical Exam: Awake and alert, disoriented, no distress. HEENT normocephalic atraumatic mucous membranes moist. Breathing unlabored no accessory muscle use good effort. Skin shows no rashes no pallor or icterus. Neuro without focal deficits. Very confused. Results & Data Results & Data ([facility]) Vital Signs (Past 12 Hours) Vital Signs Temp Pulse Resp BP Pulse Ox 03/20/21 15:17 96.4 F L 102 H 16 141/80 H 95 PG Care Time/CCT Total # of Minutes Spent Total Time Spent with Patient: Total time spent is greater than 50% in coordination of care (as documented) at patient's floor/unit and/or counseling patient: Coding Level of Care Code 36733 Subseq Hosp Care Lvl 1 Diagnoses Metastatic disease C79.9 Elevated liver enzymes R74.8 Metabolic encephalopathy G93.41 Abnormal CXR R93.89 Tobacco dependence F17.200 Lewy body dementia with behavioral disturbance G31.83; F02.81 Infected tooth K04.7 Altered mental status R41.82 Altered mental status type: unspecified Acute encephalopathy G93.40 Hilar mass R91.8 Palliative care encounter Z51.5 Liver metastasis C78.7 Supraclavicular adenopathy R59.0 (1) Altered mental status Altered mental status type: unspecified Qualified Code(s): R41.82 - Altered mental status, unspecified
[2021-03-21] MEDS: LORazepam 1 MG/2 ML VIAL IV PRN ×2 (02:25→08:29)
[2021-03-21] MEDS: NICOTINE 14 MG/24 HR PATCH TD SCH (10:57)
--- NOTE | 2021-03-21 11:34 | Palliative Care Progress Note ---
Date of Service March 21, 2021 Assessment & Plan (1) Pain: Plan: Tooth pain with dental infection as well as generalized pain. Discussed with Cristina and with Rukhsana, at bedside. Given focus on comfort and his limited ability to communicate needs, would benefit from routine opioid dosing. They agree. (2) Altered mental status: Plan: Less agitated. Resting comfortably. Will order routine lorazepam at bedtime for sleep. Continue prn dosing. (3) Supraclavicular adenopathy: Plan: Pathology indicates small cell lung cancer. (4) Palliative care encounter: Plan: I talked with Cristina about pathology results confirming cancer. Goals remains comfort. She has good family support and very much wants to spend time with Mansoor. "I know time is running out". (5) Liver metastasis: (6) Acute liver failure: (7) Lewy body dementia with behavioral disturbance: Admission and Anticipated Discharge Date Admission Date: March 16, 2021 Subjective Very restless overnight. Straight cathed for urinary retention. He did have doses of morphine and ativan and is resting comfortably now. He continues to complain of tooth pain. Appetite very good per RN and family. Review of Systems Review of Systems: Unobtainable due to reduced consciousness [place] Symptom Assessment Scale PainAD 0/3 Dyspnea by observation 0/3 Palliative Performance Score 40% Physical Exam Constitutional: no acute distress Respiratory: normal respiratory effort; no labored breathing Cardiovascular: Rate/Rhythm: regular rate and regular rhythm Extremities: no edema Musculoskeletal: Extremities: + muscle atrophy Results & Data ([facility]) Vital Signs (Past 12 Hours) Vital Signs Temp Pulse Resp BP Pulse Ox 03/21/21 07:43 98.1 F 103 H 16 119/82 96 PG Care Time/CCT Total # of Minutes Spent Total Time Spent with Patient: Total time spent is greater than 50% in coordination of care (as documented) at patient's floor/unit and/or counseling patient: Coding Level of Care Code 59605 Subseq Hosp Care Lvl 2 Diagnoses Pain R52 Altered mental status R41.82 Altered mental status type: unspecified Supraclavicular adenopathy R59.0 Palliative care encounter Z51.5 Liver metastasis C78.7 Acute liver failure K72.00 Lewy body dementia with behavioral disturbance G31.83; F02.81 (1) Altered mental status Altered mental status type: unspecified Qualified Code(s): R41.82 - Altered mental status, unspecified
[2021-03-21] MEDS: MoRPHine SULFATE 5 MG/0.25 ML UDP PO SCH ×2 (12:16→18:32)
[2021-03-21 12:19] LABS: Alpha 1 Antitrypsin 258 mg/dL (83-199); Anti Mitochondrial Antibody NEGATIVE (NEGATIVE); Anti Nuclear Antibody Screen POSITIVE (NEGATIVE); CMV IgM Antibody <30.00 AU/mL; Ceruloplasmin 54 mg/dL (18-36); HBSAG NON-REACTIVE (NON-REACTIVE); Hepatitis A Antibody IgM NON-REACTIVE (NON-REACTIVE); Hepatitis A Antibody Total NON-REACTIVE (NON-REACTIVE); Hepatitis B Core Antibody IgM NON-REACTIVE (NON-REACTIVE); Hepatitis BE Antibody Nonreactive; Hepatitis BE Antigen Nonreactive; Smooth Muscle Antibody NEGATIVE (NEGATIVE)
[2021-03-21 12:56] LABS: ANA Pattern Mitotic, Centrosome
[2021-03-21] MEDS: MoRPHine SULFATE 2 MG/ML CARP IV PRN (15:22)
--- NOTE | 2021-03-21 19:07 | Hospitalist Progress Note ---
Date of Service March 21, 2021 Assessment & Plan (1) Metastatic disease: Plan: Supraclavicular node biopsy done 03/17results pending. That said, after further discussion with palliative and patient's ex-, comfort appears to be the goalwhich given his progressed dementia seems to be an extremely reasonable course of care. for SNF placement (2) Elevated liver enzymes: Plan: appears related to above (3) Metabolic encephalopathy: Plan: Hard to tell how much would be an acute metabolic encephalopathy from his metastatic disease and liver infiltrate, and how much is really just his baseline dementia. overall though, his behaviors seem most consistent with a baseline dementia. (4) Abnormal CXR: Plan: see above, bx pending (5) Tobacco dependence: Plan: not showing overt tobacco withdrawal (6) Lewy body dementia with behavioral disturbance: Plan: supportive care, calm environment (7) Infected tooth: Plan: no apparent pain today (8) Altered mental status: Plan: metastatic disease, lewy body dementia. (9) Acute encephalopathy: Plan: as above (10) Hilar mass: Plan: related to above (11) Palliative care encounter: Plan: continued discussion (12) Liver metastasis: Plan: as above (13) Supraclavicular adenopathy: Plan: biopsy as above, path pending Plan: comfort/palliative goal and for placement once possible Admission and Anticipated Discharge Date Admission Date: March 16, 2021 Subjective no meaningful HPI or ROS obtainable. ex present trying to keep him awake. Physical Exam Physical Exam: gen awake, disoriented nad heent nc at mmm breathing unlabored no accessory muscles good effort skin no rashes no pallor or icterus no focal neuro deficits Results & Data Results & Data ([facility]) Vital Signs (Past 12 Hours) Vital Signs Temp Pulse Resp BP Pulse Ox 03/21/21 14:26 97.7 F 101 H 16 128/77 93 03/21/21 07:43 98.1 F 103 H 16 119/82 96 PG Care Time/CCT Total # of Minutes Spent Total Time Spent with Patient: Total time spent is greater than 50% in coordination of care (as documented) at patient's floor/unit and/or counseling patient: Coding Level of Care Code 72515 Subseq Hosp Care Lvl 1 Diagnoses Metastatic disease C79.9 Elevated liver enzymes R74.8 Metabolic encephalopathy G93.41 Abnormal CXR R93.89 Tobacco dependence F17.200 Lewy body dementia with behavioral disturbance G31.83; F02.81 Infected tooth K04.7 Altered mental status R41.82 Altered mental status type: unspecified Acute encephalopathy G93.40 Hilar mass R91.8 Palliative care encounter Z51.5 Liver metastasis C78.7 Supraclavicular adenopathy R59.0 (1) Altered mental status Altered mental status type: unspecified Qualified Code(s): R41.82 - Altered mental status, unspecified
[2021-03-21] MEDS: LORazepam 1 MG/2 ML VIAL IV SCH (20:24)
[2021-03-22] MEDS: MoRPHine SULFATE 5 MG/0.25 ML UDP PO SCH ×6 (00:14→23:25)
[2021-03-22] MEDS: NICOTINE 14 MG/24 HR PATCH TD SCH (09:13)
--- NOTE | 2021-03-22 10:55 | Palliative Care Progress Note ---
Date of Service March 22, 2021 Assessment & Plan (1) Pain: Plan: Generally controlled with routine morphine. PRN dosing available. No excessive sedation. (2) Constipation: Plan: On routine opioid dosing. Needs bowel prophylaxis. Will start miralax daily. His appetite and po intake are good. (3) Palliative care encounter: Plan: I spoke with his exwife, Cristina, on the phone and updated her. She was pleased that he was awake during the day yesterday and slept during the night. Continue current medication regimen. (4) Metastatic disease: (5) Lewy body dementia without behavioral disturbance: Admission and Anticipated Discharge Date Admission Date: March 16, 2021 Subjective Sitting up in bed, eating breakfast. Complains of tooth pain and upper back pain. Frequently repositioning in bed. He has been on routine morphine. No prn doses since yesterday. Slept well last night per his . Review of Systems Review of Systems: Unobtainable due to cognitive status Veteran Symptom Assessment Scale Pain AD 1/3 Dyspnea 0/3 by observation Palliative Performance Score 40% Physical Exam Constitutional: + disheveled Respiratory: normal respiratory effort; no labored breathing Cardiovascular: Rate/Rhythm: regular rate and regular rhythm Gastrointestinal (Abdomen): nontender LBM 03/18 Neurologic: Speech / Cognition: + abnormal cognition Results & Data ([facility]) Vital Signs (Past 12 Hours) Vital Signs Temp Pulse Resp BP BP Pulse Ox 03/22/21 07:36 97.9 F 94 H 18 99/67 L 94 03/22/21 04:37 98.1 F 98 H 16 109/60 92 PG Care Time/CCT Total # of Minutes Spent Total Time Spent with Patient: Total time spent is greater than 50% in coordination of care (as documented) at patient's floor/unit and/or counseling patient: Coding Level of Care Code 72163 Subseq Hosp Care Lvl 2 Diagnoses Pain R52 Constipation K59.00 Palliative care encounter Z51.5 Metastatic disease C79.9 Lewy body dementia without behavioral disturbance G31.83; F02.80
[2021-03-22] MEDS: LORazepam 1 MG/2 ML VIAL IV PRN (15:26)
--- NOTE | 2021-03-22 17:13 | Hospitalist Progress Note ---
Date of Service March 22, 2021 Assessment & Plan (1) Metastatic disease: Plan: (1) Metastatic disease: Plan: Supraclavicular node biopsy done 03/17results pending. That said, after further discussion with palliative and patient's ex-, comfort appears to be the goalwhich given his progressed dementia seems to be an extremely reasonable course of care. for SNF placement (2) Elevated liver enzymes: Plan: appears related to above (3) Metabolic encephalopathy: Plan: Hard to tell how much would be an acute metabolic encephalopathy from his metastatic disease and liver infiltrate, and how much is really just his baseline dementia. overall though, his behaviors seem most consistent with a baseline dementia. (4) Abnormal CXR: Plan: see above, bx pending (5) Tobacco dependence: Plan: not showing overt tobacco withdrawal (6) Lewy body dementia with behavioral disturbance: Plan: supportive care, calm environment (7) Infected tooth: Plan: no apparent pain today (8) Altered mental status: Plan: metastatic disease, lewy body dementia. (9) Acute encephalopathy: Plan: as above (10) Hilar mass: Plan: related to above (11) Palliative care encounter: Plan: continued discussion (12) Liver metastasis: Plan: as above (13) Supraclavicular adenopathy: Plan: biopsy as above, path pending Plan: comfort/palliative goal and for placement once possible Admission and Anticipated Discharge Date Admission Date: March 16, 2021 Subjective No meaningful HPI review of systems Physical Exam Physical Exam: General he is laying in bed awake staring more or less straightforward not really talking today but appears in no distress. HEENT normocephalic atraumatic mucous membranes moist. Breathing unlabored no accessory muscle use good effort. Skin shows no rashes no pallor or icterus. Neuro without focal deficits. Results & Data Results & Data ([facility]) Vital Signs (Past 12 Hours) Vital Signs Temp Pulse Resp BP Pulse Ox 03/22/21 07:36 97.9 F 94 H 18 99/67 L 94 PG Care Time/CCT Total # of Minutes Spent Total Time Spent with Patient: Total time spent is greater than 50% in coordination of care (as documented) at patient's floor/unit and/or counseling patient: Coding Level of Care Code 46215 Subseq Hosp Care Lvl 1 Diagnoses Metastatic disease C79.9
[2021-03-22] MEDS: MoRPHine SULFATE 2 MG/ML CARP IV PRN (18:29)
[2021-03-22] MEDS: LORazepam 1 MG/2 ML VIAL IV SCH (20:46)
[2021-03-23] MEDS: MoRPHine SULFATE 5 MG/0.25 ML UDP PO SCH ×4 (06:04→18:46)
[2021-03-23] MEDS: NICOTINE 14 MG/24 HR PATCH TD SCH (09:29)
[2021-03-23] MEDS: POLYETHYLENE (MIRALAX) 17 GM PACK PO SCH (09:29)
--- NOTE | 2021-03-23 10:16 | Palliative Care Progress Note ---
Date of Service March 23, 2021 Assessment & Plan (1) Pain: Plan: Controlled with routine roxanol. Patient may refuse. Morphine available IV prn. (2) Constipation: Plan: Monitor with miralax. Likely related to opioids and decreased activity. Appetite is good. No nausea. (3) Palliative care encounter: Plan: Primary goal is comfort. He has metastatic small cell lung cancer and his does not want any further testing or interventions. Case management working on placement. (4) Metastatic disease: (5) Lewy body dementia without behavioral disturbance: Admission and Anticipated Discharge Date Admission Date: March 16, 2021 Subjective Awake. Visiting with his . Confused. Had refused roxanol last night. No complaints of pain currently. Review of Systems Review of Systems: Unobtainable due to cognitive status [place] Symptom Assessment Scale PainAD 0/3 Dyspnea by observation 0/3 Palliative Performance Score 40% Physical Exam Constitutional: comfortable; no acute distress Respiratory: normal respiratory effort; no labored breathing Cardiovascular: Rate/Rhythm: regular rate and regular rhythm Gastrointestinal (Abdomen): distended, nontender, LBM 10/ Neurologic: Speech / Cognition: + abnormal cognition Results & Data ([facility]) Vital Signs (Past 12 Hours) Vital Signs Temp Pulse Resp BP Pulse Ox 03/23/21 06:09 98.4 F 87 16 118/83 94 PG Care Time/CCT Total # of Minutes Spent Total Time Spent: 25 Total Time Spent with Patient: Total time spent is greater than 50% in coordination of care (as documented) at patient's floor/unit and/or counseling patient: Coding Level of Care Code 45545 Subseq Hosp Care Lvl 2 Diagnoses Pain R52 Constipation K59.00 Metastatic disease C79.9 Lewy body dementia without behavioral disturbance G31.83; F02.80 Palliative care encounter Z51.5
--- NOTE | 2021-03-23 17:28 | Hospitalist Progress Note ---
Date of Service March 23, 2021 Assessment & Plan (1) Metastatic disease: Plan: 1) Metastatic disease: Plan: Supraclavicular node biopsy done ows metastatic small cell carcinoma. for comfort care (2) Elevated liver enzymes: Plan: appears related to above (3) Metabolic encephalopathy: Plan: Hard to tell how much would be an acute metabolic encephalopathy from his metastatic disease and liver infiltrate, and how much is really just his b aseline dementia. overall though, his behaviors seem most consistent with a baseline dementia. (4) Abnormal CXR: Plan: see above, bx pending (5) Tobacco dependence: Plan: not showing overt tobacco withdrawal (6) Lewy body dementia with behavioral disturbance: Plan: supportive care, calm environment (7) Infected tooth: Plan: no apparent pain today (8) Altered mental status: Plan: metastatic disease, lewy body dementia. (9) Acute encephalopathy: Plan: as above (10) Hilar mass: Plan: related to above (11) Palliative care encounter: Plan: continued discussion (12) Liver metastasis: Plan: as above (13) Supraclavicular adenopathy: Plan: biopsy as above, path pending Plan: comfort/palliative goal and for placement once possible Admission and Anticipated Discharge Date Admission Date: March 16, 2021 Subjective no meaningful HPI or ROS. ex present and pleased with care. still awaiting placement. no new issues noted. Review of Systems Review of Systems: All systems reviewed & are unremarkable except as noted in HPI & below Physical Exam Physical Exam: pleasantly confused nad heent nc at mmm breathing unlabored no accessory muscles good effort skin no rashes no pallor or icterus Results & Data Results & Data ([facility]) Vital Signs (Past 12 Hours) Vital Signs Temp Pulse Resp BP Pulse Ox 03/23/21 06:09 98.4 F 87 16 118/83 94 PG Care Time/CCT Total # of Minutes Spent Total Time Spent with Patient: Total time spent is greater than 50% in coordination of care (as documented) at patient's floor/unit and/or counseling patient: Coding Level of Care Code 28799 Subseq Hosp Care Lvl 1 Diagnoses Metastatic disease C79.9
[2021-03-23] MEDS: LORazepam 1 MG/2 ML VIAL IV SCH ×2 (21:13→22:21)
[2021-03-24] MEDS: MoRPHine SULFATE 5 MG/0.25 ML UDP PO SCH ×5 (00:53→23:33)
[2021-03-24] MEDS: POLYETHYLENE (MIRALAX) 17 GM PACK PO SCH (08:44)
[2021-03-24] MEDS: NICOTINE 14 MG/24 HR PATCH TD SCH (08:44)
[2021-03-24] MEDS: LORazepam 1 MG/2 ML VIAL IV PRN (14:47)
--- NOTE | 2021-03-24 18:44 | Hospitalist Progress Note ---
Date of Service March 24, 2021 Assessment & Plan (1) Metastatic disease: Plan: 1) Metastatic disease: Plan: Supraclavicular node biopsy done ows metastatic small cell carcinoma. for comfort care (2) Elevated liver enzymes: Plan: appears related to above (3) Metabolic encephalopathy: Plan: Hard to tell how much would be an acute metabolic encephalopathy from his metastatic disease and liver infiltrate, and how much is really just his b aseline dementia. overall though, his behaviors seem most consistent with a baseline dementia. (4) Abnormal CXR: Plan: see above, bx pending (5) Tobacco dependence: Plan: not showing overt tobacco withdrawal (6) Lewy body dementia with behavioral disturbance: Plan: supportive care, calm environment (7) Infected tooth: Plan: no apparent pain today (8) Altered mental status: Plan: metastatic disease, lewy body dementia. (9) Acute encephalopathy: Plan: as above (10) Hilar mass: Plan: related to above (11) Palliative care encounter: Plan: continued discussion (12) Liver metastasis: Plan: as above (13) Supraclavicular adenopathy: Plan: biopsy as above, path pending Plan: comfort/palliative goal and for placement once possible Admission and Anticipated Discharge Date Admission Date: March 16, 2021 Subjective no meaningful HPI or ROS Review of Systems Review of Systems: Unobtainable due to cognitive status Physical Exam Physical Exam: vitals noted nad heent nc at mmm breathing unlabored no accessory muscles good effort skin no rashes no pallor or icterus Results & Data Results & Data ([facility]) Vital Signs (Past 12 Hours) Vital Signs Temp Pulse Resp BP Pulse Ox 03/24/21 06:42 97.3 F L 89 16 122/74 96 PG Care Time/CCT Total # of Minutes Spent Total Time Spent with Patient: Total time spent is greater than 50% in coordination of care (as documented) at patient's floor/unit and/or counseling patient: Coding Level of Care Code 84181 Subseq Hosp Care Lvl 1 Diagnoses Metastatic disease C79.9
[2021-03-24] MEDS: LORazepam 1 MG/2 ML VIAL IV SCH (21:06)
[2021-03-25] MEDS: MoRPHine SULFATE 5 MG/0.25 ML UDP PO SCH ×3 (06:30→21:38)
[2021-03-25] MEDS: POLYETHYLENE (MIRALAX) 17 GM PACK PO SCH (09:03)
[2021-03-25] MEDS: NICOTINE 14 MG/24 HR PATCH TD SCH (09:03)
--- NOTE | 2021-03-25 17:07 | Hospitalist Progress Note ---
Date of Service March 25, 2021 Assessment & Plan (1) Metastatic disease: Plan: 1) Metastatic disease: Plan: Supraclavicular node biopsy done 03/17shows metastatic small cell carcinoma. for comfort care - titrating meds to be more conducive to outpt setting (2) Elevated liver enzymes: Plan: appears related to above (3) Metabolic encephalopathy: Plan: Hard to tell how much would be an acute metabolic encephalopathy from his metastatic disease and liver infiltrate, and how much is really just his baseline dementia. overall though, his behaviors seem most consistent with a baseline dementia. (4) Abnormal CXR: Plan: see above, bx pending (5) Tobacco dependence: Plan: not showing overt tobacco withdrawal (6) Lewy body dementia with behavioral disturbance: Plan: supportive care, calm environment (7) Infected tooth: Plan: no apparent pain today (8) Altered mental status: Plan: metastatic disease, lewy body dementia. (9) Acute encephalopathy: Plan: as above (10) Hilar mass: Plan: related to above (11) Palliative care encounter: Plan: continued discussion (12) Liver metastasis: Plan: as above (13) Supraclavicular adenopathy: Plan: biopsy as above, path pending Plan: comfort/palliative goal and for placement once possible Admission and Anticipated Discharge Date Admission Date: March 16, 2021 Subjective no new complaints. Asks to see my phone, and frequently grabs at my pocket. Asks nursing if it would be okay to give me a case, whenever they note it may not be the best idea, he then gives me a hug. Review of Systems Review of Systems: Unobtainable due to cognitive status Physical Exam Physical Exam: Awake and alert, disoriented, pleasant no distress. HEENT normocephalic atraumatic mucous membranes moist. Breathing unlabored no accessory muscle use good effort. Skin shows no rashes no pallor or icterus. Neuro without focal deficits. Pleasantly confused. Results & Data Results & Data ([facility]) Vital Signs (Past 12 Hours) Vital Signs Temp Pulse Resp BP Pulse Ox 03/25/21 07:26 97.5 F L 86 16 99/60 L 96 PG Care Time/CCT Total # of Minutes Spent Total Time Spent with Patient: Total time spent is greater than 50% in coordination of care (as documented) at patient's floor/unit and/or counseling patient: Coding Level of Care Code 04624 Subseq Hosp Care Lvl 2 Diagnoses Metastatic disease C79.9
[2021-03-25] MEDS: LORazepam 1 MG TAB PO SCH (20:42)
[2021-03-26] MEDS: MoRPHine SULFATE 5 MG/0.25 ML UDP PO SCH ×3 (06:13→22:26)
[2021-03-26] MEDS: NICOTINE 14 MG/24 HR PATCH TD SCH (07:38)
[2021-03-26] MEDS: POLYETHYLENE (MIRALAX) 17 GM PACK PO SCH (09:38)
--- NOTE | 2021-03-26 20:06 | Hospitalist Progress Note ---
Date of Service March 26, 2021 Assessment & Plan (1) Metastatic disease: Plan: 1) Metastatic disease: Plan: Supraclavicular node biopsy done 03/17shows metastatic small cell carcinoma. for comfort care - titrating meds to be more conducive to outpt settingdid not sleep well last night, will increase dose of p.o. Ativan at bedtime, given that we just changed from IV to p.o. (2) Elevated liver enzymes: Plan: appears related to above (3) Metabolic encephalopathy: Plan: Hard to tell how much would be an acute metabolic encephalopathy from his metastatic disease and liver infiltrate, and how much is really just his baseline dementia. overall though, his behaviors seem most consistent with a baseline dementia. (4) Abnormal CXR: Plan: see above, bx pending (5) Tobacco dependence: Plan: not showing overt tobacco withdrawal (6) Lewy body dementia with behavioral disturbance: Plan: supportive care, calm environment (7) Infected tooth: Plan: no apparent pain today (8) Altered mental status: Plan: metastatic disease, lewy body dementia. (9) Acute encephalopathy: Plan: as above (10) Hilar mass: Plan: related to above (11) Palliative care encounter: Plan: continued discussion (12) Liver metastasis: Plan: as above (13) Supraclavicular adenopathy: Plan: biopsy as above, path pending Plan: comfort/palliative goal and for placement once possible, does not sound like home situation would be safe or conducive to care in discussion with ex-. Admission and Anticipated Discharge Date Admission Date: March 16, 2021 Subjective Ex- present, pleased with care, reiterates that she would really not be able to take care of him at home. Patient asks to see my phone. Review of Systems Review of Systems: Unobtainable due to cognitive status Physical Exam Physical Exam: Pleasant no distress. HEENT normocephalic atraumatic mucous membranes moist. Breathing unlabored no accessory muscle use good effort. Skin shows no rashes no pallor or icterus. Neuro without focal deficits. PG Care Time/CCT Total # of Minutes Spent Total Time Spent with Patient: Total time spent is greater than 50% in coordination of care (as documented) at patient's floor/unit and/or counseling patient: Coding Level of Care Code 23364 Subseq Hosp Care Lvl 1 Diagnoses Metastatic disease C79.9
[2021-03-26] MEDS: LORazepam 1 MG TAB PO SCH (20:20)
[2021-03-26] MEDS ORDERED: LORazepam 1 MG TAB PO SCH (21:00)
[2021-03-27] MEDS: MoRPHine SULFATE 5 MG/0.25 ML UDP PO SCH ×3 (05:56→21:08)
[2021-03-27] MEDS: POLYETHYLENE (MIRALAX) 17 GM PACK PO SCH (07:59)
[2021-03-27] MEDS: NICOTINE 14 MG/24 HR PATCH TD SCH (08:04)
[2021-03-27] MEDS ORDERED: LORazepam 0.5 MG TAB PO STA (12:20)
--- NOTE | 2021-03-27 12:59 | Palliative Care Progress Note ---
Date of Service March 27, 2021 Assessment & Plan (1) Pain: Plan: On routine morphine, dose decreased to every 9 hours. Monitor (2) Agitation: Plan: On ativan at HS. He does have Lewy body dementia and history of alcohol use. Given that comfort is our primary goal and he has frequently been requesting a beer. Order placed for beer daily prn. (3) Palliative care encounter: (4) Metastatic disease: Admission and Anticipated Discharge Date Admission Date: March 16, 2021 Subjective Restless, confused. Repeatedly asking for a [employer]. Review of Systems Review of Systems: Unobtainable due to cognitive status Physical Exam Constitutional: + uncomfortable Respiratory: normal respiratory effort; no labored breathing Musculoskeletal: Extremities: extremities normal to inspection Neurologic: awake and + confused Results & Data ([facility]) Vital Signs (Past 12 Hours) Vital Signs Temp Pulse Resp BP Pulse Ox 03/27/21 06:53 98.4 F 91 H 16 124/75 94 PG Care Time/CCT Total # of Minutes Spent Total Time Spent with Patient: Total time spent is greater than 50% in coordination of care (as documented) at patient's floor/unit and/or counseling patient: Coding Level of Care Code 95997 Subseq Hosp Care Lvl 2 Diagnoses Pain R52 Agitation R45.1 Palliative care encounter Z51.5 Metastatic disease C79.9
[2021-03-27] MEDS ORDERED: LORazepam 1 MG TAB PO STA (17:19)
--- NOTE | 2021-03-27 17:30 | Hospitalist Progress Note ---
Date of Service March 27, 2021 Assessment & Plan (1) Lewy body dementia with behavioral disturbance: Plan: 61 yo M w/ pMHx. of Metastatic small cell carcinoma, Lewy body dementia, and acute liver failure presenting with worsening mental status and transitioned to palliative care during hospitalization. Metastatic disease: Supraclavicular node biopsy with findings of metastatic small cell carcinoma with likely liver metastasis - palliative care consulted - transitioned to comfort measures - titrating meds to be more conducive to outpatient setting - morphine available - required Ativan over the day for agitation poor sleep overnight increased dose of p.o. Ativan Metabolic encephalopathy: Acute metabolic encephalopathy from his metastatic disease and liver infiltrate with ? baseline dementia. - continue frequent reorientation Elevated liver enzymes: appears related to metastatic disease - no longer trending labs Lewy body dementia with behavioral disturbance: - supportive care, calm environment Infected tooth: - no apparent pain today DVT: SCD's Diet: low fat, low fiber, easy to chew Code: DNR/DNI Dispo: comfort/palliative goal and for placement once possible, does not sound like home situation would be safe or conducive to care in discussion with ex- . (2) Elevated liver enzymes: (3) Metabolic encephalopathy: (4) Acute liver failure: (5) Tobacco dependence: (6) Liver metastasis: Admission and Anticipated Discharge Date Admission Date: March 16, 2021 Supervising Physician Co-Signing Physician Notes Resident Physician Supervision Note: I independently interviewed and examined the patient and verified the [place] history and physical, reviewed labs and image studies and agree with resident Dr. Knight findings and care plan. Subjective Doing okay today, he was confused but pleasant in the morning. Nursing called over the day as he was anxious and would try to get out of the bed when someone wasn't in the room talking with him. He denied any pain. Review of Systems Review of Systems: Unobtainable due to cognitive status Physical Exam Constitutional: + thin; no acute distress Eyes: sclerae not anicteric ENMT: external ear and nose normal, oropharynx normal Neck: normal visual inspection Respiratory: normal respiratory effort, lungs clear to auscultation Cardiovascular: RRR, no murmur, no edema Gastrointestinal (Abdomen): normal bowel sounds, soft, nontender, no hepatosplenomegaly Inspection/Auscultation: abdomen not distended Skin: no rashes, warm and dry Neurologic: + confused; no focal motor deficits Motor/Sensory: + tremor Psychiatric: Orientation: oriented to person; + not oriented to place and + not oriented to time Eye Contact: + fair eye contact Thought Process: + flight of ideas and + confabulations; + thought process not goal directed and + thought process not linear or logical Thought Content: + preoccupation Results & Data Results & Data ([facility]) Vital Signs (Past 12 Hours) Vital Signs Temp Pulse Resp BP Pulse Ox 03/27/21 06:53 36.9 C 91 H 16 124/75 94 CBC Results Results Complete Blood Count Results: RBC 4.40 M/uL (4.7-6.1) L 03/19/21 WBC 8.43 K/uL (4.8-10.8) 03/19/21 Hgb 13.7 g/dL (14.0-18.0) L 03/19/21 Hct 40.7 % (42-52) L 03/19/21 Plt Count 229 K/uL (130-400) 03/19/21 Chemistry (BMP) Results BMP Results: Sodium 133 mmol/L (136-145) L 03/19/21 Potassium 4.1 mmol/L (3.5-5.1) 03/19/21 Chloride 100 mmol/L (98-107) 03/19/21 BUN 11 mg/dl (7-18) 03/19/21 Creatinine 0.91 mg/dl (0.6-1.4) 03/19/21 Glucose 103 mg/dl (70-99) H 03/19/21 Resident Activity Tracking Resident Involvement: Resident Care Provided Care Provided: Adult [facility]
[2021-03-27] MEDS: LORazepam 0.5 MG TAB PO SCH (21:08)
[2021-03-28] MEDS: BEER 1 CAN PO PRN (05:08)
[2021-03-28] MEDS: MoRPHine SULFATE 5 MG/0.25 ML UDP PO SCH ×4 (06:31→21:18)
[2021-03-28] MEDS: NICOTINE 14 MG/24 HR PATCH TD SCH (10:02)
[2021-03-28] MEDS: POLYETHYLENE (MIRALAX) 17 GM PACK PO SCH (10:02)
--- NOTE | 2021-03-28 14:21 | Hospitalist Progress Note ---
Date of Service March 28, 2021 Assessment & Plan (1) Metabolic encephalopathy: Plan: 61 yo M w/ pMHx. of metastatic small cell carcinoma, Lewy body dementia, and acute liver failure presenting with worsening mental status and transitioned to palliative care, awating placement. Metastatic disease: Supraclavicular node biopsy with findings of metastatic small cell carcinoma with likely liver metastasis - palliative care consulted - transitioned to comfort measures - titrating meds to be more conducive to outpatient setting - morphine available due to poor sleep, oral Ativan available QHS Metabolic encephalopathy: Acute metabolic encephalopathy from his metastatic disease and liver infiltrate with unclear baseline dementia. - continue frequent reorientation Elevated liver enzymes: appears related to metastatic disease - no longer trending labs Lewy body dementia with behavioral disturbance: - supportive care, calm environment Infected tooth: - no apparent pain today DVT: SCD's Diet: low fat, low fiber, easy to chew Code: DNR/DNI Dispo: comfort/palliative goal and for placement once possible, does not sound like home situation would be safe or conducive to care in discussion with ex- . PT and OT rec. 31/12 care - centre care may take a week, looking at [facility] (2) Elevated liver enzymes: (3) Acute liver failure: (4) Tobacco dependence: (5) Liver metastasis: (6) Lewy body dementia with behavioral disturbance: Admission and Anticipated Discharge Date Admission Date: March 16, 2021 Supervising Physician Co-Signing Physician Notes Resident Physician Supervision Note: I independently interviewed and examined the patient and verified the [place] history and physical, reviewed labs and image studies and agree with resident Dr. Knight findings and care plan. Subjective Doing okay this morning. His had a visitor in the afternoon, we discussed trying to keep him awake during the day and frequent orientation to help with his delirium, confusion, and agitation. She had no questions or concerns for me. Mr. Murrieta was not endorsing any pain and had no questions for me. Review of Systems Review of Systems: Unobtainable due to cognitive status Physical Exam Physical Exam: Constitutional + thin; no acute distress Eyes sclerae not anicteric ENMT external ear and nose normal, oropharynx normal Neck normal visual inspection Respiratory normal respiratory effort, lungs clear to auscultation Cardiovascular RRR, no murmur, no edema Gastrointestinal (Abdomen) normal bowel sounds, soft, nontender, no hepatosplenomegaly Inspection/Auscultation: abdomen not distended Skin no rashes, warm and dry Neurologic + confused; no focal motor deficits Motor/Sensory: + tremor Psychiatric Orientation: oriented to person; + not oriented to place and + not oriented to time Eye Contact: + fair eye contact Thought Process: + flight of ideas and + confabulations; + thought process not goal directed and + thought process not linear or logical Thought Content: + preoccupation Results & Data CBC Results Results Complete Blood Count Results: RBC 4.40 M/uL (4.7-6.1) L 03/19/21 WBC 8.43 K/uL (4.8-10.8) 03/19/21 Hgb 13.7 g/dL (14.0-18.0) L 03/19/21 Hct 40.7 % (42-52) L 03/19/21 Plt Count 229 K/uL (130-400) 03/19/21 Chemistry (BMP) Results BMP Results: Sodium 133 mmol/L (136-145) L 03/19/21 Potassium 4.1 mmol/L (3.5-5.1) 03/19/21 Chloride 100 mmol/L (98-107) 03/19/21 BUN 11 mg/dl (7-18) 03/19/21 Creatinine 0.91 mg/dl (0.6-1.4) 03/19/21 Glucose 103 mg/dl (70-99) H 03/19/21 Resident Activity Tracking Resident Involvement: Resident Care Provided Care Provided: Adult [facility]
[2021-03-28] MEDS: LORazepam 0.5 MG TAB PO SCH (21:15)
[2021-03-29] MEDS ORDERED: MELATONIN 3 MG TAB PO ONE (00:08)
[2021-03-29] MEDS: MoRPHine SULFATE 5 MG/0.25 ML UDP PO PRN ×2 (04:26→10:01)
[2021-03-29] MEDS: MoRPHine SULFATE 5 MG/0.25 ML UDP PO SCH ×3 (06:32→21:14)
[2021-03-29] MEDS: NICOTINE 14 MG/24 HR PATCH TD SCH (07:31)
[2021-03-29] MEDS: POLYETHYLENE (MIRALAX) 17 GM PACK PO SCH (07:31)
[2021-03-29] MEDS: MELATONIN 3 MG TAB PO PRN (18:04)
--- NOTE | 2021-03-29 20:35 | Hospitalist Progress Note ---
Date of Service March 29, 2021 Assessment & Plan (1) Metabolic encephalopathy: Plan: 61 yo M w/ pMHx. of metastatic small cell carcinoma, Lewy body dementia, and acute liver failure presenting with worsening mental status and transitioned to palliative care, awating placement. Metastatic disease: Supraclavicular node biopsy with findings of metastatic small cell carcinoma with likely liver metastasis - palliative care consulted - transitioned to comfort measures - titrating meds to be more conducive to outpatient setting - morphine available due to poor sleep, oral Ativan available QHS Metabolic encephalopathy: Acute metabolic encephalopathy from his metastatic disease and liver infiltrate with unclear baseline dementia. - continue frequent reorientation Elevated liver enzymes: appears related to metastatic disease - no longer trending labs Lewy body dementia with behavioral disturbance: - supportive care, calm environment Infected tooth: - no apparent pain today DVT: SCD's Diet: low fat, low fiber, easy to chew Code: DNR/DNI Dispo: comfort/palliative goal and for placement once possible, does not sound like home situation would be safe or conducive to care in discussion with ex- . PT and OT rec. 31/12 care - centre care may take a week, [place] [facility] [place] (2) Elevated liver enzymes: (3) Acute liver failure: (4) Tobacco dependence: (5) Liver metastasis: (6) Lewy body dementia with behavioral disturbance: Admission and Anticipated Discharge Date Admission Date: March 16, 2021 Supervising Physician Co-Signing Physician Notes Resident Physician Supervision Note: I independently interviewed and examined the patient and verified the lima history and physical, reviewed labs and image studies and agree with resident Dr. Newsome findings and care plan. Subjective Patient seen at the bedside this morning. Patient was sleepy and responded with grunts and occasionally opening eyes. Denied pain. Physical Exam Constitutional: WD/WN, vitals as above Respiratory: normal respiratory effort, lungs clear to auscultation Cardiovascular: RRR, no murmur, no edema Gastrointestinal (Abdomen): normal bowel sounds, soft, nontender, no hepatosplenomegaly Results & Data Results & Data ([facility]) Vital Signs (Past 12 Hours) Vital Signs Temp Pulse Resp BP Pulse Ox 03/29/21 10:10 36.8 C 96 H 18 106/73 98 Resident Activity Tracking Resident Involvement: Resident Care Provided Care Provided: Adult [facility] Medicine
[2021-03-29] MEDS: LORazepam 0.5 MG TAB PO SCH (21:14)
[2021-03-30] MEDS: MoRPHine SULFATE 5 MG/0.25 ML UDP PO SCH ×3 (05:34→21:04)
[2021-03-30] MEDS: POLYETHYLENE (MIRALAX) 17 GM PACK PO SCH (07:49)
[2021-03-30] MEDS: NICOTINE 14 MG/24 HR PATCH TD SCH (07:49)
--- NOTE | 2021-03-30 08:01 | Hospitalist Progress Note ---
Date of Service March 30, 2021 Assessment & Plan (1) Metabolic encephalopathy: Plan: 61 yo M w/ pMHx. of metastatic small cell carcinoma, Lewy body dementia, and acute liver failure presenting with worsening mental status and transitioned to palliative care, awating placement. Metastatic disease: Supraclavicular node biopsy with findings of metastatic small cell carcinoma with likely liver metastasis - palliative care consulted - transitioned to comfort measures - titrating meds to be more conducive to outpatient setting - morphine available due to poor sleep, oral Ativan available QHS Metabolic encephalopathy: Acute metabolic encephalopathy from his metastatic disease and liver infiltrate with unclear baseline dementia. - continue frequent reorientation Elevated liver enzymes: appears related to metastatic disease - no longer trending labs Lewy body dementia with behavioral disturbance: - supportive care, calm environment Infected tooth: - no apparent pain today DVT: SCD's Diet: low fat, low fiber, easy to chew Code: DNR/DNI Dispo: comfort/palliative goal and for placement once possible, does not sound like home situation would be safe or conducive to care in discussion with ex- . PT and OT rec. 31/12 care - centre care may take a week, looking at [facility] [place] (2) Elevated liver enzymes: (3) Acute liver failure: (4) Tobacco dependence: (5) Liver metastasis: (6) Lewy body dementia with behavioral disturbance: Admission and Anticipated Discharge Date Admission Date: March 16, 2021 Supervising Physician Co-Signing Physician Notes Resident Physician Supervision Note: I independently interviewed and examined the patient and verified the lima history and physical, reviewed labs and image studies and agree with resident Dr. Newsome findings and care plan. Subjective Patient seen at the bedside this morning. Patient was awake and asking if I had anything he could take. He denied any pain. Physical Exam Constitutional: WD/WN, vitals as above Respiratory: normal respiratory effort, lungs clear to auscultation Cardiovascular: RRR, no murmur, no edema Results & Data Results & Data ([facility]) Vital Signs (Past 12 Hours) Vital Signs Temp Pulse Resp BP Pulse Ox 03/30/21 05:22 36.4 C L 96 H 16 118/68 95 Resident Activity Tracking Resident Involvement: Resident Care Provided Care Provided: Adult [facility] Medicine
[2021-03-30] MEDS ORDERED: MoRPHine SULFATE 5 MG/0.25 ML UDP PO ONE (12:30)
[2021-03-30] MEDS: BEER 1 CAN PO PRN (17:39)
[2021-03-30] MEDS: MoRPHine SULFATE 5 MG/0.25 ML UDP PO PRN (19:25)
[2021-03-30] MEDS: LORazepam 0.5 MG TAB PO SCH (20:52)
[2021-03-31] MEDS: MoRPHine SULFATE 5 MG/0.25 ML UDP PO SCH ×4 (06:12→20:22)
--- NOTE | 2021-03-31 07:49 | Hospitalist Progress Note ---
Date of Service March 31, 2021 Assessment & Plan (1) Metabolic encephalopathy: Plan: 61 yo M w/ pMHx. of metastatic small cell carcinoma, Lewy body dementia, and acute liver failure presenting with worsening mental status and transitioned to palliative care, awating placement. Metastatic disease: Supraclavicular node biopsy with findings of metastatic small cell carcinoma with likely liver metastasis - palliative care consulted - transitioned to comfort measures - titrating meds to be more conducive to outpatient setting - morphine available due to poor sleep, oral Ativan available QHS Metabolic encephalopathy: Acute metabolic encephalopathy from his metastatic disease and liver infiltrate with unclear baseline dementia. - continue frequent reorientation Elevated liver enzymes: appears related to metastatic disease - no longer trending labs Lewy body dementia with behavioral disturbance: - supportive care, calm environment Infected tooth: - no apparent pain today DVT: SCD's Diet: low fat, low fiber, easy to chew Code: DNR/DNI Dispo: comfort/palliative goal and for placement once possible, does not sound like home situation would be safe or conducive to care in discussion with ex- . PT and OT rec. 31/12 care - centre care may take a week, looking at [facility] (2) Elevated liver enzymes: (3) Acute liver failure: (4) Tobacco dependence: (5) Liver metastasis: (6) Lewy body dementia with behavioral disturbance: Admission and Anticipated Discharge Date Admission Date: March 16, 2021 Supervising Physician Co-Signing Physician Notes Resident Physician Supervision Note: I independently interviewed and examined the patient and verified the lima history and physical, reviewed labs and image studies and agree with resident Dr. Newsome findings and care plan. Subjective Patient seen at the bedside this morning. No overnight events. Asked for sugar for his tea today and asked if he can have my shoes. Denies pain. Physical Exam Constitutional: WD/WN, vitals as above Respiratory: normal respiratory effort, lungs clear to auscultation Cardiovascular: RRR, no murmur, no edema Gastrointestinal (Abdomen): normal bowel sounds, soft, nontender, no hepatosplenomegaly Results & Data Results & Data ([facility]) Vital Signs (Past 12 Hours) Vital Signs Temp Pulse Resp BP Pulse Ox 03/31/21 06:55 36.3 C L 92 H 16 116/68 95 Resident Activity Tracking Resident Involvement: Resident Care Provided Care Provided: Adult [facility] Medicine
[2021-03-31] MEDS: NICOTINE 14 MG/24 HR PATCH TD SCH (08:25)
[2021-03-31] MEDS: POLYETHYLENE (MIRALAX) 17 GM PACK PO SCH (08:25)
[2021-03-31] MEDS: MoRPHine SULFATE 5 MG/0.25 ML UDP PO PRN ×2 (19:13→23:32)
[2021-03-31] MEDS: LORazepam 0.5 MG TAB PO SCH (20:21)
[2021-04-01] MEDS: MoRPHine SULFATE 5 MG/0.25 ML UDP PO PRN (04:43)
[2021-04-01] MEDS: MoRPHine SULFATE 5 MG/0.25 ML UDP PO SCH ×3 (04:49→21:26)
[2021-04-01] MEDS: NICOTINE 14 MG/24 HR PATCH TD SCH (08:21)
[2021-04-01] MEDS: POLYETHYLENE (MIRALAX) 17 GM PACK PO SCH (08:21)
--- NOTE | 2021-04-01 12:30 | Hospitalist Progress Note ---
Date of Service April 01, 2021 Assessment & Plan (1) Metabolic encephalopathy: Plan: 61 yo M w/ pMHx. of metastatic small cell carcinoma, Lewy body dementia, and acute liver failure presenting with worsening mental status and transitioned to palliative care, awating placement. Metastatic disease: Supraclavicular node biopsy with findings of metastatic small cell carcinoma with likely liver metastasis - palliative care consulted - transitioned to comfort measures - titrating meds to be more conducive to outpatient setting - morphine available due to poor sleep, oral Ativan available QHS Metabolic encephalopathy: Acute metabolic encephalopathy from his metastatic disease and liver infiltrate with unclear baseline dementia. - continue frequent reorientation Elevated liver enzymes: appears related to metastatic disease - no longer trending labs Lewy body dementia with behavioral disturbance: - supportive care, calm environment Infected tooth: - no apparent pain today DVT: SCD's Diet: low fat, low fiber, easy to chew Code: DNR/DNI Dispo: comfort/palliative goal and for placement once possible, does not sound like home situation would be safe or conducive to care in discussion with ex- . PT and OT rec. 31/12 care - centre care may take a week, looking at [facility] [place] (2) Elevated liver enzymes: (3) Acute liver failure: (4) Tobacco dependence: (5) Liver metastasis: (6) Lewy body dementia with behavioral disturbance: Admission and Anticipated Discharge Date Admission Date: March 16, 2021 Supervising Physician Co-Signing Physician Notes Resident Physician Supervision Note: I independently interviewed and examined the patient and verified the lima history and physical, reviewed labs and image studies and agree with resident Dr. Atkinson findings and care plan. Subjective Patient seen at the bedside this morning. No overnight events. He is of few words and seems confused. Does pose the question to me as to when he can go home. It was reiterated to the patient that we are awaiting placement for him. Otherwise he continues to be confused asking if he could have my watch. Denies any pain at this time. Pt has no complaints other than wanting to leave. Review of Systems Review of Systems: All systems reviewed & are unremarkable except as noted in HPI & below Physical Exam Constitutional: WD/WN, vitals as above + thin; no acute distress Eyes: sclerae not anicteric Neck: normal visual inspection and trachea midline Respiratory: normal respiratory effort, lungs clear to auscultation Cardiovascular: RRR, no murmur, no edema Gastrointestinal (Abdomen): normal bowel sounds, soft, nontender, no hepatosplenomegaly Inspection/Auscultation: abdomen not distended Skin: no rashes, warm and dry Neurologic: + confused; no focal motor deficits Motor/Sensory: + tremor Psychiatric: Orientation: oriented to person; + not oriented to place and + not oriented to time Eye Contact: + fair eye contact Thought Process: + flight of ideas and + confabulations; + thought process not goal directed and + thought process not linear or logical Thought Content: + preoccupation Results & Data Results & Data ([facility]) Vital Signs (Past 12 Hours) Vital Signs Pulse Resp BP Pulse Ox 04/01/21 08:34 95 H 18 108/64 97 Resident Activity Tracking Resident Involvement: Resident Care Provided Care Provided: Adult Hospital Medicine
[2021-04-01] MEDS: LORazepam 0.5 MG TAB PO SCH (21:25)
[2021-04-02] MEDS: MoRPHine SULFATE 5 MG/0.25 ML UDP PO SCH ×3 (05:13→22:30)
[2021-04-02] MEDS: NICOTINE 14 MG/24 HR PATCH TD SCH (08:00)
[2021-04-02] MEDS: POLYETHYLENE (MIRALAX) 17 GM PACK PO SCH (08:01)
--- NOTE | 2021-04-02 18:24 | Hospitalist Progress Note ---
Date of Service April 02, 2021 Assessment & Plan (1) Metabolic encephalopathy: Plan: 61 yo M w/ pMHx. of metastatic small cell carcinoma, Lewy body dementia, and acute liver failure presenting with worsening mental status and transitioned to palliative care, awating placement. Metastatic disease: Supraclavicular node biopsy with findings of metastatic small cell carcinoma with likely liver metastasis - palliative care consulted - transitioned to comfort measures - titrating meds to be more conducive to outpatient setting - morphine available - due to poor sleep, oral Ativan available QHS Metabolic encephalopathy: Acute metabolic encephalopathy from his metastatic disease and liver infiltrate with unclear baseline dementia. - continue frequent reorientation Elevated liver enzymes: appears related to metastatic disease - no longer trending labs Lewy body dementia with behavioral disturbance: - supportive care, calm environment Infected tooth: - no apparent pain today DVT: SCD's Diet: low fat, low fiber, easy to chew Code: DNR/DNI Dispo: comfort/palliative goal and for placement once possible, does not sound like home situation would be safe or conducive to care in discussion with ex- . PT and OT rec. 31/12 care - centre care may take a week, looking at [facility] [place] (2) Elevated liver enzymes: (3) Acute liver failure: (4) Tobacco dependence: (5) Liver metastasis: (6) Lewy body dementia with behavioral disturbance: Admission and Anticipated Discharge Date Admission Date: March 16, 2021 Supervising Physician Co-Signing Physician Notes Resident Physician Supervision Note: I independently interviewed and examined the patient and verified the lima history and physical, reviewed labs and image studies and agree with resident Dr. Atkinson findings and care plan. Subjective Patient seen at the bedside this morning. No overnight events. He is of few words and seems confused. Reoriented patient to where he is and why he is here. Explained that we are waiting for placement for him. He states he is not in any pain. Pt tried to take my glasses and examine them. He is continuously distracted by objects on my person, but is pleasant and discusses random topics. Has no complaints at this time. Review of Systems Review of Systems: All systems reviewed & are unremarkable except as noted in HPI & below Physical Exam Constitutional: WD/WN, vitals as above + thin; no acute distress Eyes: sclerae not anicteric ENMT: external ear and nose normal, oropharynx normal Neck: normal visual inspection and trachea midline Respiratory: normal respiratory effort, lungs clear to auscultation Cardiovascular: RRR, no murmur, no edema Gastrointestinal (Abdomen): normal bowel sounds, soft, nontender, no hepatosplenomegaly Inspection/Auscultation: abdomen not distended Skin: no rashes, warm and dry Neurologic: + confused; no focal motor deficits Motor/Sensory: + tremor Psychiatric: Orientation: oriented to person; + not oriented to place and + not oriented to time Eye Contact: + fair eye contact Thought Process: + flight of ideas and + confabulations; + thought process not goal directed and + thought process not linear or logical Thought Content: + preoccupation
[2021-04-02] MEDS: LORazepam 0.5 MG TAB PO SCH (19:59)
[2021-04-02] MEDS: BEER 1 CAN PO PRN (22:40)
[2021-04-03] MEDS: MoRPHine SULFATE 5 MG/0.25 ML UDP PO SCH ×3 (05:55→21:44)
[2021-04-03] MEDS: POLYETHYLENE (MIRALAX) 17 GM PACK PO SCH (08:46)
[2021-04-03] MEDS: NICOTINE 14 MG/24 HR PATCH TD SCH (08:46)
--- NOTE | 2021-04-03 11:05 | Hospitalist Progress Note ---
Date of Service April 03, 2021 Assessment & Plan (1) Metabolic encephalopathy: Plan: 61 yo M w/ pMHx. 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 - Attempt frequent reorientation Elevated liver enzymes: -appears related to metastatic disease - no longer trending labs Lewy body dementia with behavioral disturbance: - supportive care, calm environment DVT: SCD's Diet: low fat, low fiber, easy to chew Code: DNR/DNI Dispo: comfort/palliative goal and for placement once possible, does not sound like home situation would be safe or conducive to care in discussion with ex- . PT and OT rec. 31/12 care - [place] Care may take a week, [place] at [facility] [place] (2) Elevated liver enzymes: (3) Acute liver failure: (4) Tobacco dependence: (5) Liver metastasis: (6) Lewy body dementia with behavioral disturbance: Admission and Anticipated Discharge Date Admission Date: March 16, 2021 Supervising Physician Co-Signing Physician Notes I personally examined the patient and verified all lima points of history and exam, discussed case, and agree with decision making with Dr Melchor. No new problems. Still a very difficult placement issue. Ex- notes no new issues. Discussed with case management. Vitals noted, in general he is awake, pleasant, no distress. HEENT normocephalic atraumatic, breathing unlabored no accessory muscle use good effort. Skin shows no rashes no pallor or icterus. Neuro without focal deficits. Metastatic disease in the context of dementiaoverall goal of comfort care, working on placement, difficult situation. Subjective Pt was not in any acute distress, no overnight events. Largely incoherent and unable to engage meaningfully in interview. Seemed to be aware of surroundings. Review of Systems Review of Systems: Unable to elicit due to pt's mental status Physical Exam Physical Exam: Constitutional + thin; no acute distress Eyes sclerae not anicteric Neck normal visual inspection Respiratory normal respiratory effort, lungs clear to auscultation Cardiovascular RRR, no murmur, no edema Skin no rashes, warm and dry Neurologic + Limited AO status + confused; no focal motor deficits Results & Data Results & Data ([facility]) Vital Signs (Past 12 Hours) Vital Signs Temp Pulse Resp BP Pulse Ox 04/03/21 07:27 36.8 C 103 H 18 129/72 95 Resident Activity Tracking Resident Involvement: Resident Care Provided Care Provided: Adult Hospital Medicine
--- NOTE | 2021-04-03 16:04 | Billing Data ---
Date of Service April 03, 2021 Coding Level of Care Code 08264 Subseq Hosp Care Lvl 1
[2021-04-03] MEDS: LORazepam 0.5 MG TAB PO SCH (20:00)
[2021-04-03] MEDS: BEER 1 CAN PO PRN (21:44)
[2021-04-04] MEDS: MoRPHine SULFATE 5 MG/0.25 ML UDP PO SCH ×3 (04:41→21:52)
[2021-04-04] MEDS: NICOTINE 14 MG/24 HR PATCH TD SCH (09:18)
[2021-04-04] MEDS: POLYETHYLENE (MIRALAX) 17 GM PACK PO SCH (09:19)
--- NOTE | 2021-04-04 10:35 | Hospitalist Progress Note ---
Date of Service April 04, 2021 Assessment & Plan (1) Metabolic encephalopathy: Plan: 61 yo M w/ pMHx. 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 - Attempt frequent reorientation Elevated liver enzymes: -appears related to metastatic disease -no longer trending labs Lewy body dementia with behavioral disturbance: - supportive care, calm environment DVT: SCD's Diet: low fat, low fiber, easy to chew Code: DNR/DNI Dispo: comfort/palliative goal and for placement once possible, does not sound like home situation would be safe or conducive to care in discussion with ex- . PT and OT rec. 31/12 care - [place] Care may take a week, looking at [facility] (2) Elevated liver enzymes: (3) Acute liver failure: (4) Tobacco dependence: (5) Liver metastasis: (6) Lewy body dementia with behavioral disturbance: Admission and Anticipated Discharge Date Admission Date: March 16, 2021 Supervising Physician Co-Signing Physician Notes I personally examined the patient and verified all lima points of history and exam, discussed case, and agree with decision making with Dr Melchor. No new problems. A bit more dysphoric todayalmost tearfully asking me to "not take Cristina away" reassured him that Cristina has been in to visit frequently, and that he is okay. Nursing notes no new problems. Vitals noted, in general he is awake, a little more dysphoric today, no distress. HEENT normocephalic atraumatic, breathing unlabored no accessory muscle use good effort. Skin shows no rashes no pallor or icterus. Neuro without focal deficits. Metastatic disease in the context of dementiaoverall goal of comfort care, working on placement, difficult situation overall. Patient stable.. Subjective Pt was not in any acute distress, no overnight events. Still largely the same as day prior in terms of coherence. Review of Systems Review of Systems: Unable to elicit due to pt's mental status Physical Exam Physical Exam: Constitutional + thin; no acute distress Eyes sclerae not anicteric Neck normal visual inspection Respiratory normal respiratory effort, lungs clear to auscultation Cardiovascular RRR, no murmur, no edema Skin no rashes, warm and dry Neurologic + Limited AO status + confused; no focal motor deficits Results & Data Results & Data ([facility]) Vital Signs (Past 12 Hours) Vital Signs Temp Pulse Resp BP Pulse Ox 04/04/21 06:06 37.1 C 94 H 16 138/74 96 Resident Activity Tracking Resident Involvement: Resident Care Provided Care Provided: Adult Hospital Medicine
--- NOTE | 2021-04-04 13:54 | Billing Data ---
Date of Service April 04, 2021 Coding Level of Care Code 51343 Subseq Hosp Care Lvl 1
[2021-04-04] MEDS: BEER 1 CAN PO PRN (18:17)
[2021-04-04] MEDS: LORazepam 0.5 MG TAB PO SCH (21:52)
[2021-04-05] MEDS: MoRPHine SULFATE 5 MG/0.25 ML UDP PO SCH ×3 (06:30→21:13)
[2021-04-05] MEDS: NICOTINE 14 MG/24 HR PATCH TD SCH (08:46)
[2021-04-05] MEDS: POLYETHYLENE (MIRALAX) 17 GM PACK PO SCH (08:53)
--- NOTE | 2021-04-05 11:14 | Hospitalist Progress Note ---
Date of Service April 05, 2021 Assessment & Plan (1) Metabolic encephalopathy: Plan: 61 yo M w/ pMHx. 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 Metastatic disease: -Supraclavicular node biopsy with findings of metastatic small cell carcinoma with likely liver metastasis resulting in acute liver failure -Currently on comfort measures only following palliative consult -Tolerating meals appropriately Metabolic encephalopathy: -Acute metabolic encephalopathy from his metastatic disease and liver infiltrate with unclear baseline dementia. - Attempt frequent reorientation Elevated liver enzymes: -appears related to metastatic disease -no longer trending labs Lewy body dementia with behavioral disturbance: - supportive care, calm environment DVT: SCD's Diet: low fat, low fiber, easy to chew Code: DNR/DNI Dispo: comfort/palliative goal and for placement once possible, does not sound like home situation would be safe or conducive to care in discussion with ex- . PT and OT rec. 31/12 care - [place] Care may take a week, looking at [facility] [place] (2) Elevated liver enzymes: (3) Acute liver failure: (4) Tobacco dependence: (5) Liver metastasis: (6) Lewy body dementia with behavioral disturbance: Admission and Anticipated Discharge Date Admission Date: March 16, 2021 Supervising Physician Co-Signing Physician Notes I personally examined the patient and verified all lima points of history and exam, discussed case, and agree with decision making with Dr Melchor. No new problems. Just wonders if he can be done with his breakfast. Vitals noted, in general he is awake, calm and pleasant, no distress. HEENT normocephalic atraumatic, breathing unlabored no accessory muscle use good effort. Skin shows no rashes no pallor or icterus. Neuro without focal deficits. Metastatic disease in the context of dementiahas on overall goal of comfort care, working on placement, difficult situation overall. Patient stable. Subjective Pt was not in any acute distress, no overnight events. Somewhat more coherent and conversant today, denied acute complaints. Review of Systems Review of Systems: Negative per Subjective Physical Exam Physical Exam: Constitutional + thin; no acute distress Eyes sclerae not anicteric Neck normal visual inspection Respiratory normal respiratory effort, lungs clear to auscultation Cardiovascular RRR, no murmur, no edema Skin no rashes, warm and dry Neurologic + Limited AO status + confused; no focal motor deficits Results & Data Results & Data ([facility]) Vital Signs (Past 12 Hours) Vital Signs Temp Pulse Resp BP Pulse Ox 04/05/21 07:13 35.9 C L 16 124/68 95 04/05/21 04:09 36.2 C L 99 H 22 130/80 96 Resident Activity Tracking Resident Involvement: Resident Care Provided Care Provided: Adult Hospital Medicine
--- NOTE | 2021-04-05 16:23 | Billing Data ---
Date of Service April 05, 2021 Coding Level of Care Code 90874 Subseq Hosp Care Lvl 1
[2021-04-05] MEDS: LORazepam 0.5 MG TAB PO SCH (21:13)
[2021-04-06] MEDS: MELATONIN 3 MG TAB PO PRN (00:04)
[2021-04-06] MEDS: MoRPHine SULFATE 5 MG/0.25 ML UDP PO PRN (03:30)
[2021-04-06] MEDS: MoRPHine SULFATE 5 MG/0.25 ML UDP PO SCH ×4 (05:25→23:31)
[2021-04-06] MEDS: POLYETHYLENE (MIRALAX) 17 GM PACK PO SCH (08:35)
[2021-04-06] MEDS: NICOTINE 14 MG/24 HR PATCH TD SCH (08:35)
--- NOTE | 2021-04-06 10:10 | Hospitalist Progress Note ---
Date of Service April 06, 2021 Assessment & Plan (1) Metabolic encephalopathy: Plan: 61 yo M w/ pMHx. 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 Metastatic disease: -Supraclavicular node biopsy with findings of metastatic small cell carcinoma with likely liver metastasis resulting in acute liver failure -Currently on comfort measures only following palliative consult -Tolerating meals appropriately -Still awaiting SNF placement Metabolic encephalopathy: -Acute metabolic encephalopathy from his metastatic disease and liver infiltrate with unclear baseline dementia. - Attempt frequent reorientation Elevated liver enzymes: -appears related to metastatic disease -no longer trending labs Lewy body dementia with behavioral disturbance: - supportive care, calm environment DVT: SCD's Diet: low fat, low fiber, easy to chew Code: DNR/DNI Dispo: comfort/palliative goal and for placement once possible, does not sound like home situation would be safe or conducive to care in discussion with ex- . PT and OT rec. 31/12 care - [place] [facility] may take a week, looking at [facility] (2) Elevated liver enzymes: (3) Acute liver failure: (4) Tobacco dependence: (5) Liver metastasis: (6) Lewy body dementia with behavioral disturbance: Admission and Anticipated Discharge Date Admission Date: March 16, 2021 Subjective Pt was not in any acute distress, no overnight events. Modestly coherent and conversant today, denied acute complaints and questioned when he gets to leave the hospital. Review of Systems 2 Review of Systems: Negative per Subjective Physical Exam Physical Exam: Constitutional + thin; no acute distress Eyes sclerae not anicteric Neck normal visual inspection Respiratory normal respiratory effort, lungs clear to auscultation Cardiovascular RRR, no murmur, no edema Skin no rashes, warm and dry Neurologic + Limited AO status + confused; no focal motor deficits Results & Data Results & Data ([facility]) Vital Signs (Past 12 Hours) Vital Signs Temp Pulse Resp BP Pulse Ox 04/06/21 08:26 36.5 C 104 H 18 141/81 H 95
--- NOTE | 2021-04-06 17:28 | Billing Data ---
Date of Service April 06, 2021 Coding Level of Care Code 77069 Subseq Hosp Care Lvl 1
[2021-04-06] MEDS: LORazepam 0.5 MG TAB PO SCH (20:37)
[2021-04-07] MEDS: MoRPHine SULFATE 5 MG/0.25 ML UDP PO SCH ×3 (05:30→22:32)
[2021-04-07] MEDS: NICOTINE 14 MG/24 HR PATCH TD SCH (09:10)
[2021-04-07] MEDS: POLYETHYLENE (MIRALAX) 17 GM PACK PO SCH (09:11)
--- NOTE | 2021-04-07 10:30 | Hospitalist Progress Note ---
Date of Service April 07, 2021 Assessment & Plan (1) Metabolic encephalopathy: Plan: 61 yo M w/ pMHx. 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 Metastatic disease: -Supraclavicular node biopsy with findings of metastatic small cell carcinoma with likely liver metastasis resulting in acute liver failure -Currently on comfort measures only following palliative consult -Tolerating meals appropriately -Still awaiting SNF placement Metabolic encephalopathy: -Acute metabolic encephalopathy from his metastatic disease and liver infiltrate with unclear baseline dementia. - Attempt frequent reorientation Elevated liver enzymes: -appears related to metastatic disease -no longer trending labs Lewy body dementia with behavioral disturbance: - supportive care, calm environment DVT: SCD's Diet: low fat, low fiber, easy to chew Code: DNR/DNI Dispo: comfort/palliative goal and for placement once possible, does not sound like home situation would be safe or conducive to care in discussion with ex- . PT and OT rec. 31/12 care - [place] [facility] may take a week, [place] [facility] (2) Elevated liver enzymes: (3) Acute liver failure: (4) Tobacco dependence: (5) Liver metastasis: (6) Lewy body dementia with behavioral disturbance: Admission and Anticipated Discharge Date Admission Date: March 16, 2021 Supervising Physician Co-Signing Physician Notes I personally examined the patient and verified all lima points of history and exam, discussed case, and agree with decision making with Dr Melchor. No new problems. laying in bed, holding a dollar bill in his left hand. nursing notes he has unfortunately been a little more scared/paranoid today Vitals noted, in general he is awake, no distress. HEENT normocephalic atraumatic, breathing unlabored no accessory muscle use good effort. Skin shows no rashes no pallor or icterus. Neuro without focal deficits. Metastatic disease in the context of dementiahas on overall goal of comfort care, working on placement, difficult situation overall. Patient stable. no changes. Subjective Pt was not in any acute distress, no overnight events. Fairly coherent and conversant today, stated he had some abdominal pain. Wants to go home. Review of Systems Review of Systems: Negative per Subjective Physical Exam Physical Exam: Constitutional + thin; no acute distress Eyes sclerae not anicteric Neck normal visual inspection Respiratory normal respiratory effort, lungs clear to auscultation Cardiovascular RRR, no murmur, no edema Skin no rashes, warm and dry Neurologic + Limited AO status + confused; no focal motor deficits Results & Data Results & Data ([facility]) Vital Signs (Past 12 Hours) Vital Signs Temp Pulse Resp BP Pulse Ox 04/07/21 06:10 36.8 C 88 16 130/72 94 Resident Activity Tracking Resident Involvement: Resident Care Provided Care Provided: Adult Hospital Medicine
--- NOTE | 2021-04-07 17:14 | Billing Data ---
Date of Service April 07, 2021 Coding Level of Care Code 73832 Subseq Hosp Care Lvl 1
[2021-04-07] MEDS: BEER 1 CAN PO PRN (18:44)
[2021-04-07] MEDS: LORazepam 0.5 MG TAB PO SCH (22:25)
[2021-04-08] MEDS: MoRPHine SULFATE 5 MG/0.25 ML UDP PO SCH ×2 (06:20→15:01)
[2021-04-08] MEDS ORDERED: oxyCODONE HCL IR 5 MG TAB (IMMEDIATE RELEASE) PO STA (06:23)
--- NOTE | 2021-04-08 09:49 | Hospitalist Progress Note ---
Date of Service April 08, 2021 Assessment & Plan (1) Metabolic encephalopathy: Plan: 61 yo M w/ pMHx. 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 Metastatic disease: -Supraclavicular node biopsy with findings of metastatic small cell carcinoma with likely liver metastasis resulting in acute liver failure -Currently on comfort measures only following palliative consult -Tolerating meals appropriately -Still awaiting SNF placement Metabolic encephalopathy: -Acute metabolic encephalopathy from his metastatic disease and liver infiltrate with unclear baseline dementia. - Attempt frequent reorientation Elevated liver enzymes: -appears related to metastatic disease -no longer trending labs Lewy body dementia with behavioral disturbance: - supportive care, calm environment DVT: SCD's Diet: low fat, low fiber, easy to chew Code: DNR/DNI Dispo: comfort/palliative goal and for placement once possible, does not sound like home situation would be safe or conducive to care in discussion with ex- . PT and OT rec. 31/12 care - [place] [facility] may take a week, looking at [facility] (2) Elevated liver enzymes: (3) Acute liver failure: (4) Tobacco dependence: (5) Liver metastasis: (6) Lewy body dementia with behavioral disturbance: Admission and Anticipated Discharge Date Admission Date: March 16, 2021 Supervising Physician Co-Signing Physician Notes I personally examined the patient and verified all lima points of history and exam, discussed case, and agree with decision making with Dr Melchor. No new problems. 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 HEENT normocephalic atraumatic, breathing unlabored no accessory muscle use good effort. Skin shows no rashes no pallor or icterus. Neuro without focal deficits. Metastatic disease in the context of dementiahas on overall goal of comfort care, working on placement, difficult situation overall given limited placement options, age/dementia and reticence of ex to have home/hospice. Patient stable. no changes. Subjective Pt was sleeping during evaluation, I did not wake him. Per bedside nurse, he has been consistently altered over past day as per usual during this hospitalization Review of Systems Review of Systems: Negative per Subjective Physical Exam Physical Exam: Constitutional + thin; sleeping comfortably, no acute distress Rest of exam deferred due to patient sleeping Results & Data Results & Data ([facility]) Vital Signs (Past 12 Hours) Vital Signs Temp Pulse Resp BP Pulse Ox 04/08/21 06:25 36.4 C L 84 16 130/76 95 Resident Activity Tracking Resident Involvement: Resident Care Provided Care Provided: Adult Hospital Medicine
[2021-04-08] MEDS: NICOTINE 14 MG/24 HR PATCH TD SCH (13:04)
[2021-04-08] MEDS: POLYETHYLENE (MIRALAX) 17 GM PACK PO SCH (13:28)
--- NOTE | 2021-04-08 18:21 | Billing Data ---
Date of Service April 08, 2021 Coding Level of Care Code 79318 Subseq Hosp Care Lvl 1
[2021-04-08] MEDS: LORazepam 0.5 MG TAB PO SCH (20:36)
[2021-04-09] MEDS: NICOTINE 14 MG/24 HR PATCH TD SCH (09:40)
--- NOTE | 2021-04-09 10:14 | Hospitalist Progress Note ---
Date of Service April 09, 2021 Assessment & Plan (1) Metabolic encephalopathy: Plan: 61 yo M w/ pMHx. 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 Metastatic disease: -Supraclavicular node biopsy with findings of metastatic small cell carcinoma with likely liver metastasis resulting in acute liver failure -Currently on comfort measures only following palliative consult -Tolerating meals appropriately -Still awaiting SNF placement Metabolic encephalopathy: -Acute metabolic encephalopathy from his metastatic disease and liver infiltrate with unclear baseline dementia. - Attempt frequent reorientation Elevated liver enzymes: -appears related to metastatic disease -no longer trending labs Lewy body dementia with behavioral disturbance: - supportive care, calm environment DVT: SCD's Diet: low fat, low fiber, easy to chew Code: DNR/DNI Dispo: comfort/palliative goal and for placement once possible, does not sound like home situation would be safe or conducive to care in discussion with ex- . PT and OT rec. 31/12 care - [place] [facility] may take a week, looking at [facility] (2) Elevated liver enzymes: (3) Acute liver failure: (4) Tobacco dependence: (5) Liver metastasis: (6) Lewy body dementia with behavioral disturbance: Admission and Anticipated Discharge Date Admission Date: March 16, 2021 Supervising Physician Co-Signing Physician Notes I personally examined the patient and verified all lima points of history and exam, discussed case, and agree with decision making with Dr Melchor. apparently wanted to wander the halls earlier. no issues. Vitals noted, resting and in no distress. HEENT normocephalic atraumatic, breathing unlabored no accessory muscle use good effort. Skin shows no rashes no pallor or icterus. Neuro without focal deficits. Metastatic disease in the context of dementiahas on overall goal of comfort care, working on placement, difficult situation overall given limited placement options, age/dementia and reticence of ex to have home/hospice. Patient very stable. no changes. Subjective Pt still confused but tried asking a few times when he was going home. Review of Systems Review of Systems: Negative per Subjective Physical Exam Physical Exam: General: no acute distress, comfortable Neuro: confused, no focal motor deficits Results & Data Results & Data ([place]) Vital Signs (Past 12 Hours) Vital Signs Temp Pulse Resp BP Pulse Ox 04/09/21 06:30 36.5 C 92 H 18 113/67 95 Resident Activity Tracking Resident Involvement: Resident Care Provided Care Provided: Adult Hospital Medicine
[2021-04-09] MEDS: BEER 1 CAN PO PRN (12:42)
[2021-04-09] MEDS: POLYETHYLENE (MIRALAX) 17 GM PACK PO SCH (12:45)
--- NOTE | 2021-04-09 15:58 | Billing Data ---
Date of Service April 09, 2021 Coding Level of Care Code 11459 Subseq Hosp Care Lvl 1
[2021-04-09] MEDS ORDERED: MoRPHine SULFATE 5 MG/0.25 ML UDP PO PRN (16:43)
[2021-04-09] MEDS ORDERED: KETOROLAC TROMETHAMINE 10 MG TABLET PO PRN (17:00)
[2021-04-09] MEDS: LORazepam 0.5 MG TAB PO SCH (20:13)
[2021-04-09] MEDS: MoRPHine SULFATE 10 MG/0.5 ML UDP PO PRN (23:25)
[2021-04-09] MEDS: MoRPHine SULFATE 5 MG/0.25 ML UDP PO PRN (23:30)
[2021-04-10] MEDS: MoRPHine SULFATE 5 MG/0.25 ML UDP PO PRN (02:08)
[2021-04-10] MEDS: MoRPHine SULFATE 10 MG/0.5 ML UDP PO PRN (02:09)
[2021-04-10] MEDS: NICOTINE 14 MG/24 HR PATCH TD SCH (09:54)
[2021-04-10] MEDS: POLYETHYLENE (MIRALAX) 17 GM PACK PO SCH (10:07)
--- NOTE | 2021-04-10 13:12 | Hospitalist Progress Note ---
Date of Service April 10, 2021 Assessment & Plan (1) Metabolic encephalopathy: Plan: 61 yo M w/ pMHx. 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 Metastatic disease: -Supraclavicular node biopsy with findings of metastatic small cell carcinoma with likely liver metastasis resulting in acute liver failure -Currently on comfort measures only following palliative consult -Tolerating meals appropriately -Still awaiting SNF placement per case management Metabolic encephalopathy: -Acute metabolic encephalopathy from his metastatic disease and liver infiltrate with unclear baseline dementia. -Still consistently altered mental status without any significant change noted over past few days Elevated liver enzymes: -appears related to metastatic disease -no longer trending labs Lewy body dementia with behavioral disturbance: -Supportive care, calm environment DVT: SCD's Diet: low fat, low fiber, easy to chew Code: DNR/DNI Dispo: comfort/palliative goal and for placement once possible, does not sound like home situation would be safe or conducive to care in discussion with ex- . PT and OT rec. 31/12 care - [place] [facility] may take a week, looking at [facility] [place] (2) Elevated liver enzymes: (3) Acute liver failure: (4) Tobacco dependence: (5) Liver metastasis: (6) Lewy body dementia with behavioral disturbance: Admission and Anticipated Discharge Date Admission Date: March 16, 2021 Subjective Pt unable to meaningfully engage in interview today due to mental status. Review of Systems Review of Systems: Unable to assess due to patient's altered mental status Physical Exam Physical Exam: General: no acute distress, comfortable HEENT: scleral icterus present Resp: CTAB with unlabored respirations CV: RRR, normal S1 and S2 Neuro: awake but confused, unable to assess AO status, no gross motor deficits Results & Data Results & Data ([facility]) Vital Signs (Past 12 Hours) Vital Signs Pulse Resp BP Pulse Ox 04/10/21 06:30 89 18 136/80 96 Resident Activity Tracking Resident Involvement: Resident Care Provided Care Provided: Adult Hospital Medicine
--- NOTE | 2021-04-10 14:16 | Consultation ---
Date of Consultation April 10, 2021 History of Present Illness Reason for Consultation: ACTIVITY RECOMMENDATIONS: * Rest today. * Resume regular activity in one day. MEDICATIONS: * May take Tylenol or Ibuprofen as needed for pain. DIET: * Resume previous diet. SPECIAL CARE INSTRUCTIONS: Call your doctor if: * Temperature above 101 degrees F. * Pain not relieved by pain medicine ordered. * Increased drainage or redness from incision. * Increasing chest pain or shortness of breath. * Notify your doctor with any questions or concerns. * If you have specific questions or concerns for Radiology, please call us at . FOLLOW UP VISIT: Follow-up with Referring Physician as scheduled. ACTIVITY RECOMMENDATIONS: * Rest today. * Resume regular activity in one day. MEDICATIONS: * May take Tylenol or Ibuprofen as needed for pain. DIET: * Resume previous diet. SPECIAL CARE INSTRUCTIONS: Call your doctor if: * Temperature above 101 degrees F. * Pain not relieved by pain medicine ordered. * Increased drainage or redness from incision. * Notify your doctor with any questions or concerns. Call your doctor or go to the nearest Emergency Department if you experience: * Increased chest pain or shortness of breath. FOLLOW UP VISIT: Follow-up with Referring Physician as scheduled.ACTIVITY RECOMMENDATIONS: * Rest today. * Resume regular activity in one day. MEDICATIONS: * May take Tylenol or Ibuprofen as needed for pain. DIET: * Resume previous diet. SPECIAL CARE INSTRUCTIONS: Call your doctor if: * Temperature above 101 degrees F. * Pain not relieved by pain medicine ordered. * Increased drainage or redness from incision. * Notify your doctor with any questions or concerns. Call your doctor or go to the nearest Emergency Department if you experience: * Increased chest pain or shortness of breath. FOLLOW UP VISIT: Follow-up with Referring Physician as scheduled Attending Physician: Robby Gonzalez DO Allergies Allergy/AdvReac Type Severity Reaction Status Date / Time haloperidol Allergy Severe LETHARGIC Unverified 03/13/21 15:12 propranolol Allergy Unknown Verified 03/13/21 15:12 alprazolam AdvReac Unknown Verified 03/13/21 15:12 clonazepam AdvReac Unknown Verified 03/13/21 15:12 donepezil AdvReac Unknown Verified 03/13/21 15:12 fluvoxamine AdvReac Unknown Verified 03/13/21 15:12 hydroxyzine AdvReac Unknown Verified 03/13/21 15:12 lorazepam AdvReac Unknown Verified 03/13/21 15:12 oxcarbazepine AdvReac Unknown Verified 03/13/21 15:12 risperidone AdvReac Unknown Verified 03/13/21 15:12 tramadol AdvReac Unknown Verified 03/13/21 15:12 trihexyphenidyl AdvReac Unknown Verified 03/13/21 15:12 Home Medications Medication Instructions Recorded Confirmed Type melatonin 1 mg tablet 1 mg PO HS #90 tab 03/13/21 03/13/21 Rx pimavanserin 34 mg capsule 34 mg PO DAILY 03/13/21 03/13/21 History (Nuplazid) Patient History Medical History (Updated 03/27/21 @ 12:57 by Manasa Rocha MD) Acute encephalopathy Depression with anxiety Essential tremor Hilar mass Lewy body dementia with behavioral disturbance Metastatic disease Sleep disorder Tobacco abuse Surgical History S/P appendectomy S/P tonsillectomy and adenoidectomy Family History Sister Brain tumor Breast cancer Diabetes Mother Cancer Father Cancer Social History Smoking Status: Unknown if ever smoked Preferred Language: Ecuadorean Communication Ability: Effective Coder Operator Required: No Current Living Situation: Family Feels Safe at Home: Yes Safety Concerns: Feels Safe At This Time Assistive Devices: Walker Results & Data ([facility]) Vital Signs (Past 12 Hours) Vital Signs Pulse Resp BP Pulse Ox 04/10/21 06:30 89 18 136/80 96 PG Care Time/CCT Total # of Minutes Spent Total Time Spent with Patient: Total time spent is greater than 50% in coordination of care (as documented) at patient's floor/unit and/or counseling patient: Coding
[2021-04-10] MEDS: LORazepam 0.5 MG TAB PO SCH (21:14)
[2021-04-11] MEDS: MoRPHine SULFATE 10 MG/0.5 ML UDP PO PRN (05:18)
[2021-04-11] MEDS: NICOTINE 14 MG/24 HR PATCH TD SCH (09:00)
[2021-04-11] MEDS: POLYETHYLENE (MIRALAX) 17 GM PACK PO SCH (09:00)
--- NOTE | 2021-04-11 10:55 | Hospitalist Progress Note ---
Date of Service April 11, 2021 Assessment & Plan (1) Metabolic encephalopathy: Plan: 61 yo M w/ pMHx. 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 Metastatic disease: -Supraclavicular node biopsy with findings of metastatic small cell carcinoma with likely liver metastasis resulting in acute liver failure -Currently on comfort measures only following palliative consult -Tolerating meals appropriately -Still awaiting SNF placement per case management Metabolic encephalopathy: -Acute metabolic encephalopathy from his metastatic disease and liver infiltrate with unclear baseline dementia. -Still consistently altered mental status without any significant change noted over past several days Elevated liver enzymes: -appears related to metastatic disease -no longer trending labs Lewy body dementia with behavioral disturbance: -Supportive care, calm environment DVT: SCD's Diet: low fat, low fiber, easy to chew Code: DNR/DNI Dispo: comfort/palliative goal and for placement once possible, does not sound like home situation would be safe or conducive to care in discussion with ex- . PT and OT rec. 31/12 care - [place] [facility] may take a week, looking at [facility] (2) Elevated liver enzymes: (3) Acute liver failure: (4) Tobacco dependence: (5) Liver metastasis: (6) Lewy body dementia with behavioral disturbance: Admission and Anticipated Discharge Date Admission Date: March 16, 2021 Supervising Physician Co-Signing Physician Notes Patient seen and examined independently of PGY-1 Dr. Melchor. Agree with history, exam findings, assessment and plan of care as outlined. No issues. Vitals noted, resting and in no distress. HEENT normocephalic atraumatic, breathing unlabored no accessory muscle use good effort. + icterus, jaundiced face. Neuro without focal deficits. Metastatic disease in the context of dementiahas on overall goal of comfort care, working on placement, difficult situation overall given limited placement options, age/dementia and reticence of ex to have home/hospice. Patient very stable. no changes. Dispo: awaiting placement. Subjective Pt was laying in bed observing me quietly, did not react to or perhaps unable to hear my questions. Review of Systems Review of Systems: Unable to assess due to patient's altered mental status Physical Exam Physical Exam: General: no acute distress, comfortable HEENT: scleral icterus present Neuro: awake but confused, unable to assess formal AO status Results & Data Results & Data ([facility]) Vital Signs (Past 12 Hours) Vital Signs Temp Pulse Resp BP Pulse Ox 04/10/21 23:16 36.5 C 96 H 20 113/73 98 Resident Activity Tracking Resident Involvement: Resident Care Provided Care Provided: Adult Hospital Medicine
[2021-04-11] MEDS: LORazepam 0.5 MG TAB PO SCH (20:34)
[2021-04-11] MEDS: MELATONIN 3 MG TAB PO PRN (20:35)
[2021-04-12] MEDS: POLYETHYLENE (MIRALAX) 17 GM PACK PO SCH (08:10)
[2021-04-12] MEDS: BEER 1 CAN PO PRN (08:43)
[2021-04-12] MEDS: NICOTINE 14 MG/24 HR PATCH TD SCH (08:43)
--- NOTE | 2021-04-12 09:43 | Hospitalist Progress Note ---
Date of Service April 12, 2021 Assessment & Plan (1) Metabolic encephalopathy: Plan: 61 yo M w/ pMHx. 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 Metabolic encephalopathy: -Acute metabolic encephalopathy from his metastatic disease and liver infiltrate with unclear baseline dementia. -Currently on comfort measures only following palliative consult -Tolerating meals appropriately -On 1:1 -Still consistently altered mental status without any significant change noted over past several days -Still awaiting SNF placement per case management. Unfortunately [facility] cannot accept pt if he is on 1:1 but given his persistent severe AMS pt is not safe to be off 1:1. Very difficult placement situation, case management searching for alternatives. Metastatic disease -Supraclavicular node biopsy with findings of metastatic small cell carcinoma with likely liver metastasis resulting in acute liver failure Elevated liver enzymes: -appears related to metastatic disease -no longer trending labs Lewy body dementia with behavioral disturbance: -Supportive care, calm environment DVT: SCD's Diet: low fat, low fiber, easy to chew Code: DNR/DNI Dispo: comfort/palliative goal and for placement once possible, does not sound like home situation would be safe or conducive to care in discussion with ex- . Will need 24/7 care, SNF placement will be difficult due to requirement of being off 1:1 but not able to do so for patient's safety (2) Elevated liver enzymes: (3) Acute liver failure: (4) Tobacco dependence: (5) Liver metastasis: (6) Lewy body dementia with behavioral disturbance: Admission and Anticipated Discharge Date Admission Date: March 16, 2021 Supervising Physician Co-Signing Physician Notes Patient seen and examined independently of PGY-1 Dr. Melchor. Agree with history, exam findings, assessment and plan of care as outlined. No issues. Vitals noted, resting and in no distress. HEENT normocephalic atraumatic, breathing unlabored no accessory muscle use good effort. + icterus, jaundiced face. Neuro without focal deficits. Metastatic disease in the context of dementiahas on overall goal of comfort care, working on placement, difficult situation overall given limited placement options, age/dementia and reticence of ex to have home/hospice. Patient very stable. no changes. Dispo: awaiting placement. Subjective Pt asked multiple times if I can get him out of the hospital. Stated he was ok but largely ignored my questions. Review of Systems Review of Systems: Unable to assess due to patient's altered mental status Physical Exam Physical Exam: General: no acute distress, comfortable HEENT: scleral icterus present Neuro: confused, unable to assess formal AO status Skin: jaundice noted on face, similar to yesterday Results & Data Results & Data ([facility]) Vital Signs (Past 12 Hours) Vital Signs Temp Pulse Resp BP Pulse Ox 04/12/21 07:14 36.4 C L 95 H 20 116/71 96 Resident Activity Tracking Resident Involvement: Resident Care Provided Care Provided: Adult Hospital Medicine
[2021-04-12] MEDS: MoRPHine SULFATE 10 MG/0.5 ML UDP PO PRN (20:06)
[2021-04-12] MEDS: LORazepam 0.5 MG TAB PO SCH (20:06)
[2021-04-12] MEDS: MELATONIN 3 MG TAB PO PRN (20:06)
[2021-04-13] MEDS: NICOTINE 14 MG/24 HR PATCH TD SCH (09:58)
[2021-04-13] MEDS: POLYETHYLENE (MIRALAX) 17 GM PACK PO SCH (09:59)
--- NOTE | 2021-04-13 13:00 | Hospitalist Progress Note ---
Date of Service April 13, 2021 Assessment & Plan (1) Metabolic encephalopathy: Plan: 61 yo M w/ pMHx. 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 Metabolic encephalopathy: -Acute metabolic encephalopathy from his metastatic disease and liver infiltrate with unclear baseline dementia. -Currently on comfort measures only following palliative consult -Tolerating meals appropriately -On 1:1 -Still consistently altered mental status without any significant change noted over past several days, concern for continued hepatic encephalopathy. -Despite AMS, pt has been consistently non-combative and is able to follow conversation (such as between myself and nurses) even if he doesn't always engage in it directly. Low concern at this time for pt being dangerous to others. -Still awaiting SNF placement per case management. Unfortunately [facility] cannot accept pt if he is on 1:1 but given his persistent AMS pt is not safe to be off 1:1. Very difficult placement situation, case management following. Metastatic disease -Supraclavicular node biopsy with findings of metastatic small cell carcinoma with likely liver metastasis resulting in acute liver failure Elevated liver enzymes: -appears related to metastatic disease -no longer trending labs Lewy body dementia with behavioral disturbance: -Supportive care, calm environment DVT: SCD's Diet: low fat, low fiber, easy to chew Code: DNR/DNI Dispo: comfort/palliative goal and for placement once possible, does not sound like home situation would be safe or conducive to care in discussion with ex- . Will need 24/7 care, SNF placement will be difficult due to requirement of being off 1:1 but not able to do so for patient's safety (2) Elevated liver enzymes: (3) Acute liver failure: (4) Tobacco dependence: (5) Liver metastasis: (6) Lewy body dementia with behavioral disturbance: Admission and Anticipated Discharge Date Admission Date: March 16, 2021 Supervising Physician Co-Signing Physician Notes Patient seen and examined independently of PGY-1 Dr. Melchor. Agree with history, exam findings, assessment and plan of care as outlined. No issues. Vitals noted, resting and in no distress. HEENT normocephalic atraumatic, breathing unlabored no accessory muscle use good effort. + icterus, jaundiced face. No asterixis. Metastatic disease in the context of dementiahas on overall goal of comfort care, working on placement, difficult situation overall given limited placement options, age/dementia and reticence of ex to have home/hospice. Patient very stable. no changes. He is calm, cooperative and re-directable. Has not needed additional pharmacologic intervention for agitation. Dispo: Medically stable, awaiting placement. Subjective Pt comfortably sleeping during time of evaluation, I did not awaken him. Per bedside nurse report, pt was sleeping comfortably all night. No reported behavioral disturbances as usual. Review of Systems Review of Systems: Unable to assess today due to pt sleeping Physical Exam Physical Exam: General: no acute distress, comfortably sleeping Skin: jaundice noted on face, increasing from yesterday Results & Data Results & Data ([facility]) Vital Signs (Past 12 Hours) Vital Signs Temp Pulse Resp BP Pulse Ox 04/13/21 09:56 36.5 C 102 H 20 98/62 L 94 Resident Activity Tracking Resident Involvement: Resident Care Provided Care Provided: Adult Hospital Medicine
[2021-04-13] MEDS: BEER 1 CAN PO PRN (16:19)
[2021-04-13] MEDS: LORazepam 0.5 MG TAB PO SCH (20:47)
[2021-04-13] MEDS: MELATONIN 3 MG TAB PO PRN (21:01)
[2021-04-14] MEDS: NICOTINE 14 MG/24 HR PATCH TD SCH (08:23)
[2021-04-14] MEDS: POLYETHYLENE (MIRALAX) 17 GM PACK PO SCH (08:37)
--- NOTE | 2021-04-14 12:28 | Hospitalist Progress Note ---
Date of Service April 14, 2021 Assessment & Plan (1) Metabolic encephalopathy: Plan: 61 yo M w/ pMHx. 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 Metabolic encephalopathy: -Acute metabolic encephalopathy from his metastatic disease and liver infiltrate with unclear baseline dementia. -Currently on comfort measures only following palliative consult -Tolerating meals appropriately -On 1:1 -Still consistently altered mental status without any significant change noted over past several days, concern for continued hepatic encephalopathy. -Despite AMS, pt has been consistently non-combative and is able to follow conversation (such as between myself and nurses) even if he doesn't always engage in it directly. Low concern at this time for pt being dangerous to others. -Spoke with palliative care physician Dr. Rocha today- pt is not on hospice and apparently would not qualify for inpatient hospice -Still awaiting SNF placement per case management. Unfortunately [facility] cannot accept pt if he is on 1:1 but given his persistent AMS pt is not safe to be off 1:1. Very difficult placement situation, case management following. Metastatic disease -Supraclavicular node biopsy with findings of metastatic small cell carcinoma with likely liver metastasis resulting in acute liver failure Elevated liver enzymes: -appears related to metastatic disease -no longer trending labs Lewy body dementia with behavioral disturbance: -Supportive care, calm environment DVT: SCD's Diet: regular, easy to chew Code: DNR/DNI Dispo: comfort/palliative goal and for placement once possible, does not sound like home situation would be safe or conducive to care in discussion with ex- . Will need 24/7 care, SNF placement will be difficult due to requirement of being off 1:1 but not able to do so for patient's safety (2) Elevated liver enzymes: (3) Acute liver failure: (4) Tobacco dependence: (5) Liver metastasis: (6) Lewy body dementia with behavioral disturbance: Admission and Anticipated Discharge Date Admission Date: March 16, 2021 Supervising Physician Co-Signing Physician Notes Attending attestation Pt seen and examined in concert with Dr. Melchor. In agreement with the documented findings as noted in the resident documentation with any exceptions or additions as noted here. Unable to obtain history, patient confused. Denies pain. Not acutely discomfeited On examination, S1/S2 nl RRR no MCG. CTAB. Abd NT/ND BS+ve. +icterus, jaundice. No asterixis Metastatic disease in setting of dementia - goal of comfort care following place ment whic his pending Else see resident documentation as noted. Subjective Pt observed me quietly during evaluation, did not answer my questions but asked few times when he's going home. Per bedside nurse, has been consistently altered over past day. Review of Systems Review of Systems: Unable to assess given patient's AMS Physical Exam Physical Exam: General: no acute distress, comfortably sleeping HEENT: scleral icterus Skin: jaundice noted on face, unchanged yesterday Results & Data Results & [facility] ([facility]) Vital Signs (Past 12 Hours) Vital Signs Temp Pulse Resp BP Pulse Ox 04/14/21 06:00 36.8 C 98 H 20 116/74 93 Resident Activity Tracking Resident Involvement: Resident Care Provided Care Provided: Adult Hospital Medicine
[2021-04-14] MEDS: MoRPHine SULFATE 10 MG/0.5 ML UDP PO PRN ×2 (12:31→22:59)
[2021-04-14] MEDS: MELATONIN 3 MG TAB PO PRN (21:04)
[2021-04-14] MEDS: LORazepam 0.5 MG TAB PO SCH (21:04)
[2021-04-14] MEDS: MoRPHine SULFATE 5 MG/0.25 ML UDP PO PRN (22:58)
--- NOTE | 2021-04-15 07:47 | Hospitalist Progress Note ---
Date of Service April 15, 2021 Assessment & Plan (1) Metabolic encephalopathy: Plan: 61 yo M w/ pMHx. 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 -Comfort measures only (2) Acute liver failure: Plan: See above (3) Liver metastasis: Plan: See #1 above (4) Lewy body dementia with behavioral disturbance: Plan: See #1 above Admission and Anticipated Discharge Date Admission Date: March 16, 2021 Supervising Physician Co-Signing Physician Notes Attending attestation Pt seen and examined in concert with Dr. Melchor. In agreement with the documented findings as noted in the resident documentation with any exceptions or additions as noted here. Unable to obtain history, patient confused. Denies pain. Not acutely discomfeited On examination, S1/S2 nl RRR no MCG. CTAB. Abd NT/ND BS+ve. +icterus, jaundice. No asterixis Metastatic disease in setting of dementia - goal of comfort care following placement which is pending Else see resident documentation as noted. Chao Max is a 61-year-old male with medical history of small cell lung carcinoma with metastasis to the liver. Currently in liver failure and being managed with comfort measures. Today, he was awake and eating breakfast. Could not respond to direct questions, otherwise able to eat meal on his own. Review of Systems Review of Systems: All systems reviewed & are unremarkable except as noted in HPI & below Physical Exam Constitutional: + altered mental status Eyes: sclerae not anicteric Respiratory: normal respiratory effort, lungs clear to auscultation Cardiovascular: RRR, no murmur, no edema Skin: + jaundice Neurologic: Motor/Sensory: + tremor and + asterixis Psychiatric: Motor Behavior: + tremor Results & Data Results & Data ([facility]) Vital Signs (Past 12 Hours) Vital Signs Temp Pulse Resp BP BP Pulse Ox 04/15/21 07:40 36.6 C 94 H 19 115/67 93 04/15/21 06:00 88 15 99/60 L 94 Resident Activity Tracking Resident Involvement: Resident Care Provided Care Provided: Adult Hospital Medicine
[2021-04-15] MEDS: NICOTINE 14 MG/24 HR PATCH TD SCH (09:24)
[2021-04-15] MEDS: POLYETHYLENE (MIRALAX) 17 GM PACK PO SCH (09:28)
[2021-04-15] MEDS: LORazepam 0.5 MG TAB PO SCH (19:32)
[2021-04-15] MEDS: MELATONIN 3 MG TAB PO PRN (19:32)
[2021-04-15] MEDS: MoRPHine SULFATE 5 MG/0.25 ML UDP PO PRN (19:32)
[2021-04-15] MEDS: MoRPHine SULFATE 10 MG/0.5 ML UDP PO PRN (19:33)
[2021-04-16] MEDS: MoRPHine SULFATE 10 MG/0.5 ML UDP PO PRN (02:12)
[2021-04-16] MEDS: MoRPHine SULFATE 5 MG/0.25 ML UDP PO PRN (02:12)
[2021-04-16] MEDS: NICOTINE 14 MG/24 HR PATCH TD SCH (08:12)
[2021-04-16] MEDS: POLYETHYLENE (MIRALAX) 17 GM PACK PO SCH (08:25)
[2021-04-16] MEDS ORDERED: MoRPHine SULFATE 4 MG/ML 1 ML CARP\\VIAL IV PRN (19:10)
[2021-04-16] MEDS: LORazepam 0.5 MG TAB PO SCH (20:38)
--- NOTE | 2021-04-16 20:50 | Hospitalist Progress Note ---
Date of Service April 16, 2021 Assessment & Plan (1) Metabolic encephalopathy: Plan: 61 yo M w/ pMHx. 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 -Comfort measures only (2) Acute liver failure: Plan: See above (3) Liver metastasis: Plan: See #1 above (4) Lewy body dementia with behavioral disturbance: Plan: See #1 above Admission and Anticipated Discharge Date Admission Date: March 16, 2021 Subjective Today, he was awake and in bed after having just eaten breakfast. Did not respond to direct questions and was less talkative than he was yesterday. Review of Systems Review of Systems: All systems reviewed & are unremarkable except as noted in HPI & below Physical Exam Constitutional: + altered mental status Eyes: Scleral icterus Respiratory: normal respiratory effort, lungs clear to auscultation Cardiovascular: RRR, no murmur, no edema Skin: + jaundice Diffusely jaundiced across the face, torso, arms, and legs. Unchanged from yesterday Neurologic: Motor/Sensory: + tremor and + asterixis Psychiatric: Motor Behavior: + tremor Resident Activity Tracking Resident Involvement: Resident Care Provided Care Provided: Adult Hospital Medicine
[2021-04-17] MEDS: POLYETHYLENE (MIRALAX) 17 GM PACK PO SCH (09:45)
[2021-04-17] MEDS: NICOTINE 14 MG/24 HR PATCH TD SCH (09:45)
--- NOTE | 2021-04-17 12:47 | Hospitalist Progress Note ---
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 -Comfort measures only (2) Acute liver failure: Plan: See above (3) Liver metastasis: Plan: See #1 above (4) Lewy body dementia with behavioral disturbance: Plan: See #1 above Admission and Anticipated Discharge Date Admission Date: March 16, 2021 Supervising Physician Co-Signing Physician Notes I personally examined the patient and verified all lima points of history and exam, discussed case, and agree with decision making with Dr Ortez still anxious. still waiting on placement options Vitals noted, resting and in no distress. HEENT normocephalic atraumatic, breathing unlabored no accessory muscle use good effort. Skin shows no rashes no pallor, starting to show icterus - especially scleral. appears a bit more cachectic than when i last saw him. Neuro without focal deficits. Metastatic disease in the context of dementiahas on overall goal of comfort care, working on placement, difficult situation overall given limited placement options, age/dementia and reticence of ex to have home/hospice. appears to be starting to show signs of decline (icterus, progressive cachexia) otherwise as above Subjective He is slightly confused per usual but alert. Appears comfortable. Review of Systems Review of Systems: Unobtainable due to cognitive status Physical Exam Constitutional: + ill appearing, + altered mental status and comfortable Eyes: +scleral icterus Respiratory: normal respiratory effort, lungs clear to auscultation Cardiovascular: RRR, no murmur, no edema Skin: + jaundice Neurologic: Motor/Sensory: + tremor and + asterixis Resident Activity Tracking Resident Involvement: Resident Care Provided Care Provided: Adult Hospital Medicine
--- NOTE | 2021-04-17 19:21 | Billing Data ---
Date of Service April 17, 2021 Coding Level of Care Code 35762 Subseq Hosp Care Lvl 1
[2021-04-17] MEDS: LORazepam 0.5 MG TAB PO SCH (20:37)
[2021-04-17] MEDS: MELATONIN 3 MG TAB PO PRN (20:37)
[2021-04-18] MEDS: POLYETHYLENE (MIRALAX) 17 GM PACK PO SCH (08:09)
[2021-04-18] MEDS: NICOTINE 14 MG/24 HR PATCH TD SCH (09:29)
--- NOTE | 2021-04-18 10:13 | Hospitalist Progress Note ---
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 -Comfort measures only (2) Acute liver failure: Plan: See above (3) Liver metastasis: Plan: See #1 above (4) Lewy body dementia with behavioral disturbance: Plan: See #1 above Admission and Anticipated Discharge Date Admission Date: March 16, 2021 Supervising Physician Co-Signing Physician Notes I personally examined the patient and verified all lima points of history and exam, discussed case, and agree with decision making with Dr Ortez resting comfortably Vitals noted, resting and in no distress. HEENT normocephalic atraumatic, breathing unlabored no accessory muscle use good effort. Skin shows no rashes no pallor, starting to show icterus - especially scleral. appears a bit more cachectic than when i last saw him. Neuro without focal deficits. Metastatic disease in the context of dementiahas on overall goal of comfort care, working on placement, difficult situation overall given limited placement options, age/dementia and reticence of ex to have home/hospice. appears to be starting to show signs of decline (icterus, progressive cachexia), hopefully placement soon otherwise as above Subjective Sleeping comfortably when entering room. Pleasant when woken up. No changes since yesterday. Review of Systems Review of Systems: Unobtainable due to cognitive status Physical Exam Constitutional: + ill appearing, + altered mental status and comfortable Respiratory: normal respiratory effort, lungs clear to auscultation Cardiovascular: RRR, no murmur, no edema Skin: + jaundice Neurologic: Motor/Sensory: + tremor and + asterixis Results & Data Results & Data ([facility]) Vital Signs (Past 12 Hours) Vital Signs Temp Pulse Pulse Resp BP BP Pulse Ox 04/18/21 06:53 36.4 C L 88 20 121/75 96 04/17/21 22:44 36.7 C 94 H 16 122/70 96 Resident Activity Tracking Resident Involvement: Resident Care Provided Care Provided: Adult Hospital Medicine
[2021-04-18] MEDS: MoRPHine SULFATE 2 MG/ML CARP IV PRN (19:19)
[2021-04-18] MEDS: LORazepam 0.5 MG TAB PO SCH (21:12)
[2021-04-19] MEDS: BEER 1 CAN PO PRN (07:08)
--- NOTE | 2021-04-19 07:08 | Hospitalist Progress Note ---
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 -Comfort measures only (2) Acute liver failure: Plan: See above (3) Liver metastasis: Plan: See #1 above (4) Lewy body dementia with behavioral disturbance: Plan: See #1 above Admission and Anticipated Discharge Date Admission Date: March 16, 2021 Supervising Physician Co-Signing Physician Notes I personally examined the patient and verified all lima points of history and exam, discussed case, and agree with decision making with Dr Ortez resting comfortably Vitals noted, resting and in no distress. HEENT normocephalic atraumatic, breathing unlabored no accessory muscle use good effort. Skin shows no rashes no pallor, starting to show icterus - especially scleral. appears a bit more cachectic than when i last saw him. Neuro without focal deficits. Metastatic disease in the context of dementiahas on overall goal of comfort care, working on placement, difficult situation overall given limited placement options, age/dementia and reticence of ex to have home/hospice. appears to be starting to show signs of decline (icterus, progressive cachexia), one-to-one sitter has been stopped, hopefully facilitating placement otherwise as above Subjective Speaking more coherently today. Otherwise no changes since yesterday. Review of Systems Review of Systems: Unobtainable due to cognitive status Physical Exam Constitutional: + ill appearing, + altered mental status and comfortable Respiratory: normal respiratory effort, lungs clear to auscultation Cardiovascular: RRR, no murmur, no edema Skin: + jaundice Neurologic: Motor/Sensory: + tremor and + asterixis Results & Data Results & Data ([facility]) Vital Signs (Past 12 Hours) Vital Signs Temp Pulse Resp BP Pulse Ox 04/19/21 06:04 36.5 C 87 16 122/74 96 Resident Activity Tracking Resident Involvement: Resident Care Provided Care Provided: Adult Hospital Medicine
[2021-04-19] MEDS: POLYETHYLENE (MIRALAX) 17 GM PACK PO SCH (08:18)
[2021-04-19] MEDS: MoRPHine SULFATE 2 MG/ML CARP IV PRN (13:27)
[2021-04-19] MEDS: LORazepam 0.5 MG TAB PO SCH (18:10)
--- NOTE | 2021-04-19 19:00 | Billing Data ---
Date of Service April 19, 2021 Coding Level of Care Code 34254 Subseq Hosp Care Lvl 1
--- NOTE | 2021-04-19 19:00 | Billing Data ---
Date of Service April 18, 2021 Coding Level of Care Code 84032 Subseq Hosp Care Lvl 1
[2021-04-20] MEDS: MELATONIN 3 MG TAB PO PRN ×2 (00:27→21:43)
[2021-04-20] MEDS: MoRPHine SULFATE 2 MG/ML CARP IV PRN ×5 (02:06→21:44)
[2021-04-20] MEDS: POLYETHYLENE (MIRALAX) 17 GM PACK PO SCH (08:27)
[2021-04-20] MEDS ORDERED: BEER 1 CAN PO PRN (08:33)
--- NOTE | 2021-04-20 10:16 | Hospitalist Progress Note ---
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 -Comfort measures only (2) Acute liver failure: Plan: See above (3) Liver metastasis: Plan: See #1 above (4) Lewy body dementia with behavioral disturbance: Plan: See #1 above Admission and Anticipated Discharge Date Admission Date: March 16, 2021 Supervising Physician Co-Signing Physician Notes I personally examined the patient and verified all lima points of history and exam, discussed case, and agree with decision making with Dr Neelima negro Vitals noted, resting and in no distress. HEENT normocephalic atraumatic, breathing unlabored no accessory muscle use good effort. Skin shows no rashes n o pallor, starting to show icterus - especially scleral. slowly but progressively cachectic. Neuro without focal deficits. Metastatic disease in the context of dementiahas on overall goal of comfort care, working on placement, difficult situation overall given limited placement options, age/dementia and reticence of ex to have home/hospice. starting to show signs of decline (icterus, progressive cachexia), one-to-one sitter has been stopped, hopefully facilitating placement. no new issues today otherwise as above Subjective Doing well, no acute changes since yesterday. Was hallucinating most of yesterday, given ativan in the evening, no complications overnight. Review of Systems Review of Systems: Unobtainable due to cognitive status Physical Exam Constitutional: + ill appearing, + altered mental status and comfortable Respiratory: normal respiratory effort, lungs clear to auscultation Cardiovascular: RRR, no murmur, no edema Skin: + jaundice Neurologic: Motor/Sensory: + tremor and + asterixis Results & Data Results & Data ([facility]) Vital Signs (Past 12 Hours) Vital Signs Pulse Resp BP Pulse Ox 04/20/21 06:39 89 18 103/62 93 Resident Activity Tracking Resident Involvement: Resident Care Provided Care Provided: Adult [facility] Medicine
--- NOTE | 2021-04-20 18:29 | Billing Data ---
Date of Service April 20, 2021 Coding Level of Care Code 56791 Subseq Hosp Care Lvl 1
[2021-04-20] MEDS: LORazepam 0.5 MG TAB PO SCH (21:43)
[2021-04-21] MEDS: MoRPHine SULFATE 2 MG/ML CARP IV PRN ×4 (00:01→19:34)
--- NOTE | 2021-04-21 07:10 | Hospitalist Progress Note ---
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 -Comfort measures only (2) Acute liver failure: Plan: See above (3) Liver metastasis: Plan: See #1 above (4) Lewy body dementia with behavioral disturbance: Plan: See #1 above Admission and Anticipated Discharge Date Admission Date: March 16, 2021 Supervising Physician Co-Signing Physician Notes I personally examined the patient and verified all lima points of history and exam, discussed case, and agree with decision making with Dr Ortez sleeping no new issues Vitals noted, resting and in no distress. HEENT normocephalic atraumatic, breathing unlabored no accessory muscle use good effort. Skin shows no rashes no pallor, starting to show icterus - especially scleral. slowly but progressively cachectic. Neuro without focal deficits. Metastatic disease in the context of dementiahas on overall goal of comfort care, working on placement, difficult situation overall given limited placement options, age/dementia and reticence of ex to have home/hospice. starting to show signs of decline (icterus, progressive cachexia), one-to-one sitter has been stopped days ago, hopefully facilitating placement. no new issues today otherwise as above Subjective Doing well, no acute changes since yesterday. No complications overnight. Review of Systems Review of Systems: Unobtainable due to cognitive status Physical Exam Constitutional: + ill appearing, + altered mental status and comfortable Respiratory: normal respiratory effort, lungs clear to auscultation Cardiovascular: RRR, no murmur, no edema Skin: + jaundice Neurologic: Motor/Sensory: + tremor and + asterixis Results & Data Results & Data ([facility]) Vital Signs (Past 12 Hours) Vital Signs Pulse Resp BP Pulse Ox 04/21/21 05:10 83 18 128/75 94 Resident Activity Tracking Resident Involvement: Resident Care Provided Care Provided: Adult Hospital Medicine
[2021-04-21] MEDS: POLYETHYLENE (MIRALAX) 17 GM PACK PO SCH (10:26)
--- NOTE | 2021-04-21 18:47 | Billing Data ---
Date of Service April 21, 2021 Coding Level of Care Code 02328 Subseq Hosp Care Lvl 1
[2021-04-21] MEDS: MELATONIN 3 MG TAB PO PRN (19:34)
[2021-04-21] MEDS: LORazepam 0.5 MG TAB PO SCH (19:34)
[2021-04-22] MEDS: MoRPHine SULFATE 2 MG/ML CARP IV PRN ×5 (04:09→23:13)
--- NOTE | 2021-04-22 06:59 | Hospitalist Progress Note ---
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 -Comfort measures only (2) Acute liver failure: Plan: See above (3) Liver metastasis: Plan: See #1 above (4) Lewy body dementia with behavioral disturbance: Plan: See #1 above Admission and Anticipated Discharge Date Admission Date: March 16, 2021 Supervising Physician Co-Signing Physician Notes I personally examined the patient and verified all lima points of history and exam, discussed case, and agree with decision making with Dr Ortez Ex- present at the bedside. No new issues noted. Vitals noted, resting and in no distress. HEENT normocephalic atraumatic, breathing unlabored no accessory muscle use good effort. Skin shows no rashes no pallor, starting to show icterus - especially scleral. slowly but progressively cachectic. Neuro without focal deficits. Metastatic disease in the context of dementiahas on overall goal of comfort care, working on placement, difficult situation overall given limited placement options, age/dementia and reticence of ex to have home/hospice. starting to show signs of decline (icterus, progressive cachexia), one-to-one sitter has been stopped many days ago, hopefully facilitating placement. no new issues today otherwise as above Subjective Doing well, still confused, no acute changes since yesterday. No complications overnight. Review of Systems Review of Systems: Unobtainable due to cognitive status Physical Exam Constitutional: + ill appearing, + altered mental status and comfortable Respiratory: normal respiratory effort, lungs clear to auscultation Cardiovascular: RRR, no murmur, no edema Skin: + jaundice Neurologic: Motor/Sensory: + tremor and + asterixis Resident Activity Tracking Resident Involvement: Resident Care Provided Care Provided: Adult Hospital Medicine
--- NOTE | 2021-04-22 18:20 | Billing Data ---
Date of Service April 22, 2021 Coding Level of Care Code 13539 Subseq Hosp Care Lvl 1
[2021-04-22] MEDS: LORazepam 0.5 MG TAB PO SCH (20:08)
[2021-04-22] MEDS: MELATONIN 3 MG TAB PO PRN (20:08)
[2021-04-23] MEDS: MoRPHine SULFATE 2 MG/ML CARP IV PRN ×4 (05:43→20:11)
--- NOTE | 2021-04-23 09:06 | Hospitalist Progress Note ---
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 -Comfort measures only (2) Acute liver failure: Plan: See above (3) Liver metastasis: Plan: See #1 above (4) Lewy body dementia with behavioral disturbance: Plan: See #1 above Admission and Anticipated Discharge Date Admission Date: March 16, 2021 Supervising Physician Co-Signing Physician Notes I personally examined the patient and verified all lima points of history and exam, discussed case, and agree with decision making with Dr Ortez No meaningful HPI or review of systems. No issues noted. Vitals noted, resting and in no distress. HEENT normocephalic atraumatic, breathing unlabored no accessory muscle use good effort. Skin shows no rashes no pallor, starting to show icterus - especially scleral. slowly but progressively cachectic. Neuro without focal deficits. Metastatic disease in the context of dementiahas on overall goal of comfort care, working on placement, difficult situation overall given limited placement options, age/dementia and reticence of ex to have home/hospice. starting to show signs of decline (icterus, progressive cachexia), one-to-one sitter has been stopped many days ago and has not had notable problems since hopefully facilitating placement. no new issues today otherwise as above Subjective Still confused, no acute changes since yesterday. No complications overnight. Doing well. Review of Systems Review of Systems: Unobtainable due to cognitive status Physical Exam Constitutional: + ill appearing, + altered mental status and comfortable Respiratory: normal respiratory effort, lungs clear to auscultation Cardiovascular: RRR, no murmur, no edema Skin: + jaundice Neurologic: Motor/Sensory: + tremor and + asterixis Resident Activity Tracking Resident Involvement: Resident Care Provided Care Provided: Adult Hospital Medicine
--- NOTE | 2021-04-23 19:08 | Billing Data ---
Date of Service April 23, 2021 Coding Level of Care Code 74276 Subseq Hosp Care Lvl 1
[2021-04-23] MEDS: LORazepam 0.5 MG TAB PO SCH (20:11)
[2021-04-23] MEDS: MELATONIN 3 MG TAB PO PRN (20:11)
[2021-04-24] MEDS: MoRPHine SULFATE 2 MG/ML CARP IV PRN ×6 (01:31→23:34)
--- NOTE | 2021-04-24 16:30 | Hospitalist Progress Note ---
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 No requiring one on one anymore. -Comfort measures only (2) Acute liver failure: Plan: See above (3) Liver metastasis: Plan: See #1 above (4) Lewy body dementia with behavioral disturbance: Plan: See #1 above Admission and Anticipated Discharge Date Admission Date: March 16, 2021 Supervising Physician Co-Signing Physician Notes Resident Physician Supervision Note: I independently interviewed and examined the patient and verified the lima history and physical, reviewed labs and image studies and agree with resident Dr. Ortez findings and care plan. Subjective Still confused, no acute changes since yesterday. No complications overnight. Review of Systems Review of Systems: Unobtainable due to cognitive status Physical Exam Constitutional: + ill appearing, + altered mental status and comfortable Respiratory: normal respiratory effort, lungs clear to auscultation Cardiovascular: RRR, no murmur, no edema Skin: + jaundice Neurologic: Motor/Sensory: + tremor and + asterixis Results & Data Results & Data ([facility]) Vital Signs (Past 12 Hours) Vital Signs Temp Pulse Resp BP Pulse Ox 04/24/21 05:20 36.4 C L 91 H 14 108/69 95 Resident Activity Tracking Resident Involvement: Resident Care Provided Care Provided: Adult Hospital Medicine
[2021-04-24] MEDS: MELATONIN 3 MG TAB PO PRN (20:26)
[2021-04-24] MEDS: LORazepam 0.5 MG TAB PO SCH (20:26)
[2021-04-25] MEDS: MoRPHine SULFATE 2 MG/ML CARP IV PRN ×3 (07:30→18:57)
--- NOTE | 2021-04-25 07:55 | Hospitalist Progress Note ---
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 Not requiring one on one anymore. -Comfort measures only (2) Acute liver failure: Plan: See above (3) Liver metastasis: Plan: See #1 above (4) Lewy body dementia with behavioral disturbance: Plan: See #1 above Admission and Anticipated Discharge Date Admission Date: March 16, 2021 Supervising Physician Co-Signing Physician Notes Resident Physician Supervision Note: I independently interviewed and examined the patient and verified the lima history and physical, reviewed labs and image studies and agree with resident Dr. Ortez findings and care plan. Subjective Still confused, no acute changes since yesterday. No complications overnight. Review of Systems Review of Systems: Unobtainable due to cognitive status Physical Exam Constitutional: + ill appearing, + altered mental status and comfortable Respiratory: normal respiratory effort, lungs clear to auscultation Cardiovascular: RRR, no murmur, no edema Skin: + jaundice Neurologic: Motor/Sensory: + tremor and + asterixis Results & Data Results & Data ([facility]) Vital Signs (Past 12 Hours) Vital Signs Temp Pulse Resp BP Pulse Ox 04/25/21 07:03 36.4 C L 83 18 117/69 94 Resident Activity Tracking Resident Involvement: Resident Care Provided Care Provided: Adult Hospital Medicine
[2021-04-25] MEDS: LORazepam 0.5 MG TAB PO SCH (20:01)
[2021-04-26] MEDS: MoRPHine SULFATE 2 MG/ML CARP IV PRN ×5 (01:25→21:07)
--- NOTE | 2021-04-26 07:19 | Hospitalist Progress Note ---
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 Not requiring one on one anymore. -Comfort measures only -Declining COVID vaccination - has limited the option for SNF placement. Case management following (2) Acute liver failure: Plan: See above (3) Liver metastasis: Plan: See #1 above (4) Lewy body dementia with behavioral disturbance: Plan: See #1 above Admission and Anticipated Discharge Date Admission Date: March 16, 2021 Supervising Physician Co-Signing Physician Notes Resident Physician Supervision Note: I independently interviewed and examined the patient and verified the lima history and physical, reviewed labs and image studies and agree with resident Dr. Ortez findings and care plan. Subjective Still confused, no acute changes since yesterday. No complications overnight. Review of Systems Review of Systems: Unobtainable due to cognitive status Physical Exam Constitutional: + ill appearing, + altered mental status and comfortable Respiratory: normal respiratory effort, lungs clear to auscultation Cardiovascular: RRR, no murmur, no edema Skin: + jaundice Neurologic: Motor/Sensory: + tremor and + asterixis Results & Data Results & Data ([facility]) Vital Signs (Past 12 Hours) Vital Signs Temp Pulse Resp BP Pulse Ox 04/26/21 05:31 36.5 C 86 16 118/74 94 Resident Activity Tracking Resident Involvement: Resident Care Provided Care Provided: Adult Hospital Medicine
[2021-04-26] MEDS: MELATONIN 3 MG TAB PO PRN (20:07)
[2021-04-26] MEDS: LORazepam 0.5 MG TAB PO SCH (20:07)
[2021-04-27] MEDS: MoRPHine SULFATE 2 MG/ML CARP IV PRN ×3 (03:14→20:50)
--- NOTE | 2021-04-27 15:07 | Hospitalist Progress Note ---
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 Not requiring one on one anymore. -Comfort measures only -Declining COVID vaccination - has limited the option for SNF placement. Case management following -Unwitnessed fall out of bed in AM - no new neuro deficits, no imaging needed at this time. follow. (2) Acute liver failure: Plan: See above (3) Liver metastasis: Plan: See #1 above (4) Lewy body dementia with behavioral disturbance: Plan: See #1 above Admission and Anticipated Discharge Date Admission Date: March 16, 2021 Supervising Physician Co-Signing Physician Notes Resident Physician Supervision Note: I independently interviewed and examined the patient and verified the lima history and physical, reviewed labs and image studies and agree with resident Dr. Ortez findings and care plan. Subjective No overnight events. Had an unwitnessed fall this morning out of his bed. Mild laceration on left lower leg and middle forehead, bandaged. Laying in bed comfortably when entering room. No other changes since yesterday. Review of Systems Review of Systems: Unobtainable due to cognitive status Physical Exam Constitutional: + ill appearing, + altered mental status and comfortable Eyes: +scleral icterus Respiratory: normal respiratory effort, lungs clear to auscultation Cardiovascular: RRR, no murmur, no edema Skin: + jaundice Neurologic: Motor/Sensory: + tremor and + asterixis Results & Data Results & Data ([facility]) Vital Signs (Past 12 Hours) Vital Signs Temp Pulse Resp BP Pulse Ox 04/27/21 05:22 36.7 C 83 20 120/68 95 Resident Activity Tracking Resident Involvement: Resident Care Provided Care Provided: Adult [facility] [place]
[2021-04-27] MEDS: BEER 1 CAN PO SCH ×2 (15:54→19:29)
[2021-04-27] MEDS: LORazepam 0.5 MG TAB PO SCH (20:12)
[2021-04-27] MEDS: MELATONIN 3 MG TAB PO PRN (20:12)
[2021-04-28] MEDS: BEER 1 CAN PO SCH ×3 (00:01→09:15)
[2021-04-28] MEDS: MoRPHine SULFATE 2 MG/ML CARP IV PRN ×5 (02:54→21:37)
--- NOTE | 2021-04-28 17:21 | Hospitalist Progress Note ---
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 Not requiring one on one anymore. -Comfort measures only -Declining COVID vaccination - has limited the option for SNF placement. Case management following -CM speaking with legal dept. - will see if permission necessary to give COVID vaccination (2) Acute liver failure: Plan: See above (3) Liver metastasis: Plan: See #1 above (4) Lewy body dementia with behavioral disturbance: Plan: See #1 above Admission and Anticipated Discharge Date Admission Date: March 16, 2021 Supervising Physician Co-Signing Physician Notes Resident Physician Supervision Note: I independently interviewed and examined the patient and verified the lima history and physical, reviewed labs and image studies and agree with resident Dr. Ortez findings and care plan. Subjective He had his ativan near bedtime and slept well through the night. No overnight events. Review of Systems Review of Systems: Unobtainable due to cognitive status Physical Exam Constitutional: + ill appearing, + altered mental status and comfortable Eyes: +scleral icterus Respiratory: normal respiratory effort, lungs clear to auscultation Cardiovascular: RRR, no murmur, no edema Skin: + jaundice Neurologic: Motor/Sensory: + tremor and + asterixis Results & Data Results & Data ([facility]) Vital Signs (Past 12 Hours) Vital Signs Temp Pulse Resp BP Pulse Ox 04/28/21 07:03 36.4 C L 82 16 109/69 94 Resident Activity Tracking Resident Involvement: Resident Care Provided Care Provided: Adult Hospital Medicine
[2021-04-28] MEDS: MELATONIN 3 MG TAB PO PRN (20:28)
[2021-04-28] MEDS: LORazepam 0.5 MG TAB PO SCH (20:28)
[2021-04-29] MEDS: MoRPHine SULFATE 2 MG/ML CARP IV PRN ×4 (03:21→21:59)
--- NOTE | 2021-04-29 09:51 | Hospitalist Progress Note ---
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 Not requiring one on one anymore. * Comfort measures only * Ethics team consulted for guidance - day 44 of hospital stay due to patient's ex- (proxy) declining to COVID vaccine administration which limites options for placement. CM and legal dept in communication regarding COVID-19 vaccine. * No updates until Saturday. (2) Acute liver failure: Plan: See above (3) Liver metastasis: Plan: See #1 above (4) Lewy body dementia with behavioral disturbance: Plan: See #1 above Admission and Anticipated Discharge Date Admission Date: March 16, 2021 Supervising Physician Co-Signing Physician Notes Resident Physician Supervision Note: I independently interviewed and examined the patient and verified the lima history and physical, reviewed labs and image studies and agree with resident Dr. Duque findings and care plan. Subjective Per nurse: no acute events overnight. Had breakfast. Communicated thirst, generalized pain to nurse. Asked for his . Received 2 mg IV morphine this AM for aforementioned generalized pain. Found lying in position this morning. Unresponsive to verbal commands. Review of Systems Constitutional: as per Subjective / HPI Physical Exam Constitutional: WD/WN, vitals as above + frail appearing and comfortable Eyes: sclerae not anicteric Respiratory: normal respiratory effort, lungs clear to auscultation Cardiovascular: RRR, no murmur, no edema Results & Data Results & Data ([facility]) Vital Signs (Past 12 Hours) Vital Signs Temp Pulse Resp BP Pulse Ox 04/29/21 06:46 36.8 C 80 18 108/67 96 Resident Activity Tracking Resident Involvement: Resident Care Provided Care Provided: Adult [facility]
[2021-04-29] MEDS: MELATONIN 3 MG TAB PO PRN (21:55)
[2021-04-29] MEDS: LORazepam 0.5 MG TAB PO SCH (21:55)
[2021-04-30] MEDS: MoRPHine SULFATE 2 MG/ML CARP IV PRN (02:46)
[2021-04-30] MEDS: MoRPHine SULFATE 4 MG/ML 1 ML CARP\\VIAL IV PRN ×3 (07:36→17:18)
--- NOTE | 2021-04-30 16:34 | Hospitalist Progress Note ---
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 Not requiring one on one anymore. * Comfort measures only * Ethics team consulted for guidance - day 45 of hospital stay due to patient's ex- (proxy) declining to COVID vaccine administration which limites options for placement. CM and legal dept in communication regarding COVID-19 vaccine. * No updates until Saturday. (2) Acute liver failure: Plan: See above (3) Liver metastasis: Plan: See #1 above (4) Lewy body dementia with behavioral disturbance: Plan: See #1 above Admission and Anticipated Discharge Date Admission Date: March 16, 2021 Supervising Physician Co-Signing Physician Notes Resident Physician Supervision Note: I independently interviewed and examined the patient and verified the lima history and physical, reviewed labs and image studies and agree with resident Dr. Hubbard findings and care plan. Subjective Per nurse, no acute events overnight. Patient asleep in bed this morning Review of Systems Constitutional: as per Subjective / HPI Physical Exam Constitutional: WD/WN, vitals as above Respiratory: normal respiratory effort, lungs clear to auscultation Cardiovascular: RRR, no murmur, no edema Results & Data Results & Data ([facility]) Vital Signs (Past 12 Hours) Vital Signs Temp Pulse Resp BP Pulse Ox 04/30/21 06:49 36.3 C L 74 20 104/68 96 Resident Activity Tracking Resident Involvement: Resident Care Provided Care Provided: Adult Hospital Medicine
[2021-04-30] MEDS: LORazepam 0.5 MG TAB PO SCH (22:45)
[2021-04-30] MEDS: MELATONIN 3 MG TAB PO PRN (22:46)
[2021-05-01] MEDS: MoRPHine SULFATE 2 MG/ML CARP IV PRN ×5 (03:56→21:32)
[2021-05-01] MEDS ORDERED: MoRPHine SULFATE 4 MG/ML 1 ML CARP\\VIAL IV STA (05:18)
[2021-05-01] MEDS: ONDANSETRON INJ 2 MG/ML 2 ML VIAL IV PRN ×2 (13:02→22:21)
--- NOTE | 2021-05-01 17:02 | Hospitalist Progress Note ---
Date of Service May 01, 2021 Assessment & Plan (1) Metabolic encephalopathy: Plan: 61 yo M w/ pMHx. of metastatic small cell carcinoma, Lewy body dementia, and acute liver failure presenting with worsening mental status and transitioned to palliative care, awaiting placement. Metastatic disease: Supraclavicular node biopsy with findings of metastatic small cell carcinoma with likely liver metastasis - palliative care consulted - transitioned to comfort measures - morphine available - due to poor sleep, oral Ativan available QHS Metabolic encephalopathy: Acute metabolic encephalopathy from his metastatic disease and liver infiltrate with unclear baseline dementia. - continue frequent reorientation Elevated liver enzymes: appears related to metastatic disease - no longer trending labs Lewy body dementia with behavioral disturbance: - supportive care, calm environment Infected tooth: - no apparent pain today DVT: SCD's Diet: low fat, low fiber, easy to chew Code: DNR/DNI Dispo: comfort/palliative goal and for placement once possible, does not sound like home situation would be safe or conducive to care in discussion with ex- . PT and OT rec. 31/12 care - centre care may take a week, looking at [facility], [place], [place]. Difficulty is in getting a covid vaccine at the hospital so that he may be placed at 1 of these facilities. Approval was given by his ex-, however, we do not have the means to give him the vaccine in the hospital at this time. (2) Elevated liver enzymes: (3) Acute liver failure: (4) Tobacco dependence: (5) Liver metastasis: (6) Lewy body dementia with behavioral disturbance: Admission and Anticipated Discharge Date Admission Date: March 16, 2021 Supervising Physician Co-Signing Physician Notes I personally examined the patient and verified all lima points of history and exam, discussed case, and agree with decision making with Dr Atkinson. No meaningful HPI review of systems from patient. Ex- present at the bedside. Offered empathy and support. We also had an extensive discussion about vaccinationsaddressing her concerns particularly as it relates to her reticence to have him get the Covid vaccine. After we have our discussion, she is quite amenable to having him vaccinated. Vitals noted, in general he is mostly asleep during our conversation appears to be predominantly resting comfortably, occasional periods of apneabut again in the context of being asleep. No distress. He appears even more cachectic than whenever I saw him last time, although more ashen then jaundiced. Breathing unlabored no accessory muscle use good effort. Metastatic disease in the context of dementiahas on overall goal of comfort care, working on placement, difficult situation overall given limited placement options, age/dementia and reticence of ex to have home/hospice. Continues to show signs of decline (icterus, progressive cachexia), ex- amenable to have been vaccinated against Covid, which hopefully should use in transition. While she was amenable to any of the vaccines, we discussed most specifically planning for [facility] if possible because it would allow him to be fully vaccinated the fastest. otherwise as above Subjective Patient seen at bedside this morning. Reports no overnight events per himself. Nursing did report that he was in some pain last night as his morphine orders did run out last night so he did go some time without pain relief. Otherwise patient is doing overall okay. Attempted to barter to get my safety glasses that I was wearing in the room. Patient has no complaints at this time. Review of Systems Review of Systems: All systems reviewed & are unremarkable except as noted in HPI & below Physical Exam Constitutional: WD/WN, vitals as above + thin; no acute distress Eyes: sclerae not anicteric ENMT: external ear and nose normal, oropharynx normal Neck: normal visual inspection and trachea midline Respiratory: normal respiratory effort, lungs clear to auscultation Cardiovascular: RRR, no murmur, no edema Gastrointestinal (Abdomen): normal bowel sounds, soft, nontender, no hepato splenomegaly Inspection/Auscultation: abdomen not distended Skin: no rashes, warm and dry Neurologic: + confused; no focal motor deficits Motor/Sensory: + tremor Psychiatric: Orientation: oriented to person; + not oriented to place and + not oriented to time Eye Contact: + fair eye contact Thought Process: + flight of ideas and + confabulations; + thought process not goal directed and + thought process not linear or logical Thought Content: + preoccupation Results & Data Results & Data ([facility]) Vital Signs (Past 12 Hours) Vital Signs Temp Pulse Resp BP Pulse Ox 05/01/21 06:42 36.9 C 94 H 14 98/64 L 93 Resident Activity Tracking Resident Involvement: Resident Care Provided Care Provided: Adult [facility] Medicine
--- NOTE | 2021-05-01 17:43 | Billing Data ---
Date of Service May 01, 2021 Coding Level of Care Code 84969 Subseq Hosp Care Lvl 2
[2021-05-01] MEDS: MELATONIN 3 MG TAB PO PRN (21:32)
[2021-05-01] MEDS: LORazepam 0.5 MG TAB PO SCH (21:32)
[2021-05-02] MEDS: MoRPHine SULFATE 2 MG/ML CARP IV PRN ×7 (00:42→22:53)
--- NOTE | 2021-05-02 16:57 | Hospitalist Progress Note ---
Date of Service May 02, 2021 Assessment & Plan (1) Metabolic encephalopathy: Plan: 61 yo M w/ pMHx. of metastatic small cell carcinoma, Lewy body dementia, and acute liver failure presenting with worsening mental status and transitioned to palliative care, awaiting placement. Metastatic disease: Supraclavicular node biopsy with findings of metastatic small cell carcinoma with likely liver metastasis - palliative care consulted - transitioned to comfort measures - morphine available - due to poor sleep, oral Ativan available QHS Metabolic encephalopathy: Acute metabolic encephalopathy from his metastatic disease and liver infiltrate with unclear baseline dementia. - continue frequent reorientation Elevated liver enzymes: appears related to metastatic disease - no longer trending labs Lewy body dementia with behavioral disturbance: - supportive care, calm environment Infected tooth: - no apparent pain today DVT: SCD's Diet: low fat, low fiber, easy to chew Code: DNR/DNI Dispo: comfort/palliative goal and for placement once possible, does not sound like home situation would be safe or conducive to care in discussion with ex- . PT and OT rec. 31/12 care - centre care may take a week, looking at [facility], [place], [place]. Difficulty is in getting a covid vaccine at the hospital so that he may be placed at 1 of these facilities. Approval was given by his ex-, however, we do not have the means to give him the vaccine in the hospital at this time. Discussed [facility] as the best choice for him as it will give him full vaccination status the quickest. (2) Elevated liver enzymes: (3) Acute liver failure: (4) Tobacco dependence: (5) Liver metastasis: (6) Lewy body dementia with behavioral disturbance: Admission and Anticipated Discharge Date Admission Date: March 16, 2021 Supervising Physician Co-Signing Physician Notes I personally examined the patient and verified all lima points of history and exam, discussed case, and agree with decision making with Dr Atkinson. No meaningful HPI review of systems from patient. Vitals noted, in general he is laying in bed resting comfortably, staring at the ceiling, no distress. Cachectic and ashen. Breathing unlabored no accessory muscle use good effort. Metastatic disease in the context of dementiahas on overall goal of comfort care, working on placement, difficult situation overall given limited placement options, age/dementia and reticence of ex to have home/hospice. Continues to show signs of decline (icterus, progressive cachexia), ex- amenable to have been vaccinated against Covid, which hopefully should help with transition. While she was amenable to any of the vaccines, we discussed most specifically planning for [facility] if possible because it would allow him to be fully vaccinated the fastestwill need to try to help facilitate this inpatient. otherwise as above Subjective Patient seen at bedside this morning. Reports no overnight events per himself. HPI is limited today as he is not very talkative more so than usual. He has no complaints at this time. Review of Systems Review of Systems: Unobtainable due to cognitive status Physical Exam Constitutional: + ill appearing and + cachectic; no acute distress Eyes: + scleral abnormality (Icteric sclera) Neck: normal visual inspection and trachea midline Respiratory: normal respiratory effort, lungs clear to auscultation Cardiovascular: RRR, no murmur, no edema Gastrointestinal (Abdomen): Inspection/Auscultation: abdomen normal to inspection and normal bowel sounds; abdomen not distended Skin: no rashes, warm and dry Neurologic: + confused; no focal motor deficits Motor/Sensory: + tremor Psychiatric: Orientation: oriented to person; + not oriented to place and + not oriented to time Eye Contact: + fair eye contact Thought Process: + flight of ideas and + confabulations; + thought process not goal directed and + thought process not linear or logical Thought Content: + preoccupation Resident Activity Tracking Resident Involvement: Resident Care Provided Care Provided: Adult Hospital Medicine
--- NOTE | 2021-05-02 17:13 | Billing Data ---
Date of Service May 02, 2021 Coding Level of Care Code 64313 Subseq Hosp Care Lvl 1
[2021-05-02] MEDS: LORazepam 0.5 MG TAB PO SCH (21:35)
[2021-05-02] MEDS: MELATONIN 3 MG TAB PO PRN (21:35)
[2021-05-03] MEDS: MoRPHine SULFATE 2 MG/ML CARP IV PRN ×7 (04:47→23:28)
--- NOTE | 2021-05-03 17:28 | Hospitalist Progress Note ---
Date of Service May 03, 2021 Assessment & Plan (1) Metabolic encephalopathy: Plan: 61 yo M w/ pMHx. of metastatic small cell carcinoma, Lewy body dementia, and acute liver failure presenting with worsening mental status and transitioned to palliative care, awaiting placement. Metastatic disease: Supraclavicular node biopsy with findings of metastatic small cell carcinoma with likely liver metastasis - comfort care, working on placement / snf/hospice Metabolic encephalopathy: -but most of mentation is baseline lewy body dementia Elevated liver enzymes: appears related to metastatic disease - no longer trending labs due to comfort measures only status Lewy body dementia with behavioral disturbance: - supportive care, calm environment Infected tooth: - no apparent pain today DVT: SCD's Diet: low fat, low fiber, easy to chew Code: DNR/DNI Dispo: comfort/palliative goal and for placement once possible, does not sound like home situation would be safe or conducive to care in discussion with ex- . PT and OT rec. 31/12 care - centre care may take a week, looking at [facility], [place], [place]. Difficulty is in getting a covid vaccine at the hospital so that he may be placed at 1 of these facilities. Approval was given by his ex-, however, we do not have the means to give him the vaccine in the hospital at this time. Discussed [facility] as the best choice for him as it will give him full vaccination status the quickest. Admission and Anticipated Discharge Date Admission Date: March 16, 2021 Subjective no meaningful HPI or ROS obtainable Review of Systems Review of Systems: Unobtainable due to cognitive status Physical Exam Physical Exam: cahcectic, resting in bed, no distress. ashen appearing. breathing unlabored no accessory muscles good effort skin no rashes no pallor or icterus. Results & Data Results & Data ([facility]) Vital Signs (Past 12 Hours) Vital Signs Temp Pulse Resp BP Pulse Ox 05/03/21 07:43 97.3 F L 76 16 114/68 98 PG Care Time/CCT Total # of Minutes Spent Total Time Spent with Patient: Total time spent is greater than 50% in coordination of care (as documented) at patient's floor/unit and/or counseling patient: Coding Level of Care Code 33554 Subseq Hosp Care Lvl 1 Diagnoses Metabolic encephalopathy G93.41
[2021-05-03] MEDS: LORazepam 0.5 MG TAB PO SCH (20:46)
[2021-05-03] MEDS: MELATONIN 3 MG TAB PO PRN (20:46)
[2021-05-04] MEDS: MoRPHine SULFATE 2 MG/ML CARP IV PRN ×7 (02:32→23:38)
[2021-05-04] MEDS: ONDANSETRON INJ 2 MG/ML 2 ML VIAL IV PRN (10:43)
--- NOTE | 2021-05-04 11:01 | Hospitalist Progress Note ---
Date of Service May 04, 2021 Assessment & Plan (1) Metabolic encephalopathy: Plan: 61 yo M w/ pMHx. of metastatic small cell carcinoma, Lewy body dementia, and acute liver failure presenting with worsening mental status and transitioned to palliative care, awaiting placement. Metastatic disease: Supraclavicular node biopsy with findings of metastatic small cell carcinoma with likely liver metastasis - palliative care consulted - transitioned to comfort measures - morphine available - due to poor sleep, oral Ativan available QHS Metabolic encephalopathy: Acute metabolic encephalopathy from his metastatic disease and liver infiltrate with unclear baseline dementia. - continue frequent reorientation Elevated liver enzymes: appears related to metastatic disease - no longer trending labs Lewy body dementia with behavioral disturbance: - supportive care, calm environment Infected tooth: - no apparent pain today DVT: SCD's Diet: low fat, low fiber, Pureed Code: DNR/DNI Dispo: comfort/palliative goal and for placement once possible, does not sound like home situation would be safe or conducive to care in discussion with ex- . PT and OT rec. 31/12 care - centre care may take a week, looking at [facility], [place], [place]. Difficulty is in getting a covid vaccine at the hospital so that he may be placed at 1 of these facilities. Approval was given by his ex-, however, we do not have the means to give him the vaccine in the hospital at this time. Discussed [facility] as the best choice for him as it will give him full vaccination status the quickest. (2) Elevated liver enzymes: (3) Acute liver failure: (4) Tobacco dependence: (5) Liver metastasis: (6) Lewy body dementia with behavioral disturbance: Admission and Anticipated Discharge Date Admission Date: March 16, 2021 Supervising Physician Co-Signing Physician Notes I personally examined the patient and verified all lima points of history and exam, discussed case, and agree with decision making with Dr Atkinson. No meaningful HPI review of systems from patient. Vitals noted, in general he is laying in bed resting comfortably, sleeping, no distress. Cachectic and ashen. Breathing unlabored no accessory muscle use good effort. Metastatic disease in the context of dementiahas on overall goal of comfort care, working on placement, difficult situation overall given limited placement options, age/dementia and reticence of ex to have home/hospice. Continues to show ongoing signs of decline (icterus, progressive cachexia), ex- amenable to have been vaccinated against Covid, which hopefully should help with transition. While she was amenable to any of the vaccines, we discussed most s pecifically planning for [facility] if possible because it would allow him to be fully vaccinated the fastestwill need to try to help facilitate this inpatient. otherwise as above Subjective Patient seen at bedside this morning. Patient was not very talkative today and was resting in his bed and staring at the ceiling. Was able to state that he was not in any pain. Review of systems was unobtainable due to mental status. Review of Systems Review of Systems: Unobtainable due to cognitive status Physical Exam Constitutional: WD/WN, vitals as above + ill appearing and + cachectic; no acute distress Eyes: + scleral abnormality (Icteric sclera) Neck: normal visual inspection and trachea midline Respiratory: normal respiratory effort, lungs clear to auscultation Cardiovascular: RRR, no murmur, no edema Neurologic: + confused; no focal motor deficits Motor/Sensory: + tremor Psychiatric: Orientation: oriented to person; + not oriented to place and + not oriented to time Eye Contact: + fair eye contact Thought Process: + flight of ideas and + confabulations; + thought process not goal directed and + thought process not linear or logical Thought Content: + preoccupation Results & Data Results & Data ([facility]) Vital Signs (Past 12 Hours) Vital Signs Temp Pulse Resp BP Pulse Ox 05/04/21 07:18 36.4 C L 80 16 116/66 97
--- NOTE | 2021-05-04 17:02 | Billing Data ---
Date of Service May 04, 2021 Coding Level of Care Code 52127 Subseq Hosp Care Lvl 1
[2021-05-04] MEDS: MELATONIN 3 MG TAB PO PRN (20:45)
[2021-05-04] MEDS: LORazepam 0.5 MG TAB PO SCH (20:45)
[2021-05-05] MEDS: MoRPHine SULFATE 2 MG/ML CARP IV PRN (04:00)
[2021-05-05] MEDS ORDERED: LORazepam 0.5 MG/1 ML VIAL IV STA (08:36)
[2021-05-05] MEDS: MoRPHine SULFATE 4 MG/ML 1 ML CARP\\VIAL IV PRN ×3 (10:16→21:50)
--- NOTE | 2021-05-05 12:45 | Hospitalist Progress Note ---
Date of Service May 05, 2021 Assessment & Plan (1) Metabolic encephalopathy: Plan: 61 yo M w/ pMHx. of metastatic small cell carcinoma, Lewy body dementia, and acute liver failure presenting with worsening mental status and transitioned to palliative care, awaiting placement. Metastatic disease: Supraclavicular node biopsy with findings of metastatic small cell carcinoma with likely liver metastasis - palliative care consulted - transitioned to comfort measures - morphine available -Ativan switched to IV as needed every 6 hours. -Due to fall, seizure mats were added for injury prevention. Metabolic encephalopathy: Acute metabolic encephalopathy from his metastatic disease and liver infiltrate with unclear baseline dementia. - continue frequent reorientation Elevated liver enzymes: appears related to metastatic disease - no longer trending labs Lewy body dementia with behavioral disturbance: - supportive care, calm environment Infected tooth: - no apparent pain today DVT: SCD's Diet: low fat, low fiber, Pureed Code: DNR/DNI Dispo: comfort/palliative goal and for placement once possible, does not sound like home situation would be safe or conducive to care in discussion with ex- . PT and OT rec. 31/12 care - centre care may take a week, looking at [facility], [place], [place]. Difficulty is in getting a covid vaccine at the hospital so that he may be placed at 1 of these facilities. Approval was given by his ex-, however, we do not have the means to give him the vaccine in the hospital at this time. Discussed [facility] as the best choice for him as it will give him full vaccination status the quickest. (2) Elevated liver enzymes: (3) Acute liver failure: (4) Tobacco dependence: (5) Liver metastasis: (6) Lewy body dementia with behavioral disturbance: Admission and Anticipated Discharge Date Admission Date: March 16, 2021 Supervising Physician Co-Signing Physician Notes I personally examined the patient and verified all lima points of history and exam, discussed case, and agree with decision making with Dr Atkinson. No meaningful HPI review of systems from patient. Vitals noted, in general he is laying in bed resting comfortably, sleeping, no distress. Cachectic and ashen. Breathing unlabored no accessory muscle use good effort. Metastatic disease in the context of dementiahas on overall goal of comfort care, working on placement, difficult situation overall given limited placement options, age/dementia and reticence of ex to have home/hospice. Continues to show ongoing signs of decline (icterus, progressive cachexia), ex- amenable to have him vaccinated against Covid, which hopefully should help with transition. While she was amenable to any of the vaccines, we discussed most specifically planning for [facility] if possible because it would allow him to be fully vaccinated the fastestwill need to try to help facilitate this inpatient as [facility] currently does not have a mechanism to actually dose the vaccine for inpatients. otherwise as above Subjective Patient seen at bedside this morning. Patient did have a fall earlier this morning out of bed. He seems overall unchanged. Nurse states that he has been restless this morning and has been attempting to repeatedly get out of bed. Patient was not very talkative today and was resting in his bed and staring at the ceiling. Not verbally responsive today. Review of systems was unobtainable due to mental status. Review of Systems Review of Systems: Unobtainable due to cognitive status Physical Exam Constitutional: WD/WN, vitals as above + ill appearing and + cachectic; no acute distress Eyes: + scleral abnormality (Icteric sclera) ENMT: external ear and nose normal, oropharynx normal Neck: normal visual inspection and trachea midline Respiratory: normal respiratory effort, lungs clear to auscultation Cardiovascular: RRR, no murmur, no edema Gastrointestinal (Abdomen): normal bowel sounds, soft, nontender, no hepatosplenomegaly Inspection/Auscultation: abdomen normal to inspection and normal bowel sounds; abdomen not distended Skin: no rashes, warm and dry Neurologic: + confused; no focal motor deficits Motor/Sensory: + tremor Psychiatric: Orientation: oriented to person; + not oriented to place and + not oriented to time Eye Contact: + fair eye contact Results & Data Results & Data ([facility]) Vital Signs (Past 12 Hours) Vital Signs Temp Pulse Resp BP Pulse Ox 05/05/21 07:42 35.6 C L 87 20 126/72 97 Resident Activity Tracking Resident Involvement: Resident Care Provided Care Provided: Adult Hospital Medicine
--- NOTE | 2021-05-05 17:28 | Billing Data ---
Date of Service May 05, 2021 Coding Level of Care Code 11714 Subseq Hosp Care Lvl 1
[2021-05-06] MEDS: MoRPHine SULFATE 4 MG/ML 1 ML CARP\\VIAL IV PRN ×5 (03:45→18:29)
--- NOTE | 2021-05-06 13:22 | Hospitalist Progress Note ---
Date of Service May 06, 2021 Assessment & Plan (1) Metabolic encephalopathy: Plan: 61 yo M w/ pMHx. of metastatic small cell carcinoma, Lewy body dementia, and acute liver failure presenting with worsening mental status and transitioned to palliative care, awaiting placement. Metastatic disease: Supraclavicular node biopsy with findings of metastatic small cell carcinoma with likely liver metastasis - palliative care consulted - transitioned to comfort measures - morphine available -Ativan IV as needed every 6 hours. -Due to fall, seizure mats were added for injury prevention. Metabolic encephalopathy: Acute metabolic encephalopathy from his metastatic disease and liver infiltrate with unclear baseline dementia. - continue frequent reorientation Elevated liver enzymes: appears related to metastatic disease - no longer trending labs Lewy body dementia with behavioral disturbance: - supportive care, calm environment Infected tooth: - no apparent pain today DVT: SCD's Diet: low fat, low fiber, Pureed Code: DNR/DNI Dispo: comfort/palliative goal and for placement once possible, does not sound like home situation would be safe or conducive to care in discussion with ex- . PT and OT rec. 31/12 care - centre care may take a week, looking at [facility], [place], [place]. Difficulty is in getting a covid vaccine at the hospital so that he may be placed at 1 of these facilities. Approval was given by his ex-, however, we do not have the means to give him the vaccine in the hospital at this time. Discussed [facility] as the best choice for him as it will give him full vaccination status the quickest. (2) Elevated liver enzymes: (3) Acute liver failure: (4) Tobacco dependence: (5) Liver metastasis: (6) Lewy body dementia with behavioral disturbance: Admission and Anticipated Discharge Date Admission Date: March 16, 2021 Supervising Physician Co-Signing Physician Notes I personally examined the patient and verified all lima points of history and exam, discussed case, and agree with decision making with Dr Atkinson. No meaningful HPI review of systems from patient. Vitals noted Metastatic disease in the context of dementiahas on overall goal of comfort care. Continue to work on placement difficult situation overall given limited placement options, age/dementia and reticence of ex to have home/hospice. As stated by Dr. Jacobs and agree with the following: Continues to show ongoing signs of decline (icterus, progressive cachexia), ex- amenable to have him vaccinated against Covid, which hopefully should help with transition. While she was amenable to any of the vaccines, we discussed most specifically planning for [facility] if possible because it would allow him to be fully vaccinated the fastestwill need to try to help facilitate this inpatient as [facility] currently does not have a mechanism to actually dose the vaccine for inpatients. otherwise as above Subjective Patient seen at bedside this morning. No meaningful HPI or review of systems can be documented as patient is asleep and does not typically verbally respond anyway. Review of Systems Review of Systems: Unobtainable due to cognitive status Physical Exam Constitutional: WD/WN, vitals as above + ill appearing and + cachectic; no acute distress Eyes: + scleral abnormality (Icteric sclera) Neck: normal visual inspection and trachea midline Respiratory: normal respiratory effort, lungs clear to auscultation Cardiovascular: RRR, no murmur, no edema Gastrointestinal (Abdomen): Inspection/Auscultation: abdomen normal to inspection Percussion/Palpation: abdomen soft Skin: + jaundice Neurologic: Motor/Sensory: + tremor Results & Data Results & Data ([facility]) Vital Signs (Past 12 Hours) Vital Signs Temp Pulse Resp BP Pulse Ox 05/06/21 06:40 36.4 C L 99 H 16 113/67 94
--- NOTE | 2021-05-06 19:31 | Billing Data ---
Date of Service May 06, 2021 Coding Level of Care Code 47320 Subseq Hosp Care Lvl 2
[2021-05-07] MEDS: MoRPHine SULFATE 4 MG/ML 1 ML CARP\\VIAL IV PRN ×3 (01:07→09:00)
--- NOTE | 2021-05-07 09:09 | Hospitalist Progress Note ---
Date of Service May 07, 2021 Assessment & Plan (1) Metabolic encephalopathy: Plan: 61 yo M w/ pMHx. of metastatic small cell carcinoma, Lewy body dementia, and acute liver failure presenting with worsening mental status and transitioned to palliative care, awaiting placement. Metastatic disease: Supraclavicular node biopsy with findings of metastatic small cell carcinoma with likely liver metastasis - palliative care consulted - transitioned to comfort measures - morphine available -Ativan IV as needed every 6 hours. -Due to fall, seizure mats were added for injury prevention. Metabolic encephalopathy: Acute metabolic encephalopathy from his metastatic disease and liver infiltrate with unclear baseline dementia. - continue frequent reorientation Elevated liver enzymes: appears related to metastatic disease - no longer trending labs Lewy body dementia with behavioral disturbance: - supportive care, calm environment Infected tooth: - no apparent pain today DVT: SCD's Diet: low fat, low fiber, Pureed Code: DNR/DNI Dispo: comfort/palliative goal and for placement once possible, does not sound like home situation would be safe or conducive to care in discussion with ex- . PT and OT rec. 31/12 care - centre care may take a week, looking at [facility], [place], [place]. Difficulty is in getting a covid vaccine at the hospital so that he may be placed at 1 of these facilities. Approval was given by his ex-, however, we do not have the means to give him the vaccine in the hospital at this time. Discussed [facility] as the best choice for him as it will give him full vaccination status the quickest. (2) Elevated liver enzymes: (3) Acute liver failure: (4) Tobacco dependence: (5) Liver metastasis: (6) Lewy body dementia with behavioral disturbance: Admission and Anticipated Discharge Date Admission Date: March 16, 2021 Supervising Physician Co-Signing Physician Notes I personally examined the patient and verified all lima points of history and exam, discussed case, and agree with decision making with Dr Atkinson. No meaningful HPI review of systems from patient. Vitals noted Metastatic disease in the context of dementiahas on overall goal of comfort care. Patient today was more restless, ordered morphine drip for comofrt and increased ativan frequency Goal is to keep patient comfortable. Continue to work on placement difficult situation overall given limited placement options, age/dementia and reticence of ex to have home/hospice. As stated by Dr. Jacobs and agree with the following: Continues to show ongoing signs of decline (icterus, progressive cachexia), ex- amenable to have him vaccinated against Covid, which hopefully should help with transition. While she was amenable to any of the vaccines, we discussed most specifically planning for [facility] if possible because it would allow him to be fully vaccinated the fastestwill need to try to help facilitate this inpatient as [facility] currently does not have a mechanism to actually dose the vaccine for inpatients. otherwise as above Subjective No meaningful HPI or review of systems able to be obtained due to cognitive status. No overnight events per nursing. Review of Systems Review of Systems: Unobtainable due to cognitive status Physical Exam Constitutional: + cachectic; no acute distress Eyes: + scleral abnormality (Icteric sclera) Neck: normal visual inspection Respiratory: normal respiratory effort, lungs clear to auscultation Cardiovascular: RRR, no murmur, no edema Gastrointestinal (Abdomen): Inspection/Auscultation: abdomen normal to inspection Skin: + jaundice Psychiatric: Eye Contact: + fair eye contact Results & Data Results & Data ([facility]) Vital Signs (Past 12 Hours) Vital Signs Temp Pulse Resp BP Pulse Ox 05/07/21 06:40 36.4 C L 100 H 16 103/67 92 Resident Activity Tracking Resident Involvement: Resident Care Provided Care Provided: Adult Hospital Medicine
[2021-05-07] MEDS ORDERED: LORazepam 0.5 MG/1 ML VIAL IV STA (10:43)
[2021-05-07] MEDS ORDERED: LORazepam 0.5 MG/1 ML VIAL IV PRN ×2 (10:43→16:01)
[2021-05-07] MEDS ORDERED: STAT IV Infusion **Titration per Protocol STA (16:01)
[2021-05-07] MEDS ORDERED: MoRPHine SULF/NSS 250 MG/250 ML BTL IV SCH (16:15)
--- NOTE | 2021-05-07 19:11 | Billing Data ---
Date of Service May 07, 2021 Coding Level of Care Code 08745 Subseq Hosp Care Lvl 2
--- NOTE | 2021-05-08 13:02 | Hospitalist Progress Note ---
Date of Service May 08, 2021 Assessment & Plan (1) Metabolic encephalopathy: Plan: 61 yo M w/ pMHx. of metastatic small cell carcinoma, Lewy body dementia, and acute liver failure presenting with worsening mental status and transitioned to palliative care, awaiting placement. Metastatic disease: Supraclavicular node biopsy with findings of metastatic small cell carcinoma with likely liver metastasis - palliative care consulted - transitioned to comfort measures -On morphine drip -Ativan IV as needed every 4 hours -Due to fall, seizure mats were added for injury prevention. Metabolic encephalopathy: Acute metabolic encephalopathy from his metastatic disease and liver infiltrate with unclear baseline dementia. - continue frequent reorientation Elevated liver enzymes: appears related to metastatic disease - no longer trending labs Lewy body dementia with behavioral disturbance: - supportive care, calm environment Infected tooth: - no apparent pain today DVT: SCD's Diet: low fat, low fiber, Pureed Code: DNR/DNI Dispo: comfort/palliative goal and for placement once possible, does not sound like home situation would be safe or conducive to care in discussion with ex- . PT and OT rec. 31/12 care - centre care may take a week, looking at [facility], [place], [place]. Difficulty is in getting a covid vaccine at the hospital so that he may be placed at 1 of these facilities. Approval was given by his ex-, however, we do not have the means to give him the vaccine in the hospital at this time. Discussed [facility] as the best choice for him as it will give him full vaccination status the quickest. (2) Elevated liver enzymes: (3) Acute liver failure: (4) Tobacco dependence: (5) Liver metastasis: (6) Lewy body dementia with behavioral disturbance: Admission and Anticipated Discharge Date Admission Date: March 16, 2021 Supervising Physician Co-Signing Physician Notes I personally examined the patient and verified all lima points of history and exam, discussed case, and agree with decision making with Dr Atkinson. Vital signs as noted Upon exam, the patient is sleeping and not arousable. No signs or symptoms to suggest pain or distress. Metastatic small cell carcinoma with likely hepatic metastasis Comfort care measures Appreciate palliative consultation Difficult placement options as he is not currently vaccinated for COVID-19 which prohibits admission to a facility with hospice Patient's family is reticent to have home hospice; really does not have local family to support Else per resident documentation Subjective No meaningful HPI or review of systems able to be obtained due to cognitive status. No overnight events per nursing. Review of Systems Review of Systems: Unobtainable due to cognitive status Physical Exam Constitutional: + cachectic; no acute distress Eyes: + scleral abnormality Neck: normal visual inspection Respiratory: normal respiratory effort, lungs clear to auscultation Cardiovascular: RRR, no murmur, no edema Skin: + jaundice Neurologic: moves all extremities Psychiatric: Orientation: + not alert Eye Contact: + poor eye contact Results & Data Results & Data ([facility]) Vital Signs (Past 12 Hours) Vital Signs Temp Pulse Resp BP Pulse Ox 05/08/21 06:45 36.9 C 101 H 16 99/62 L 90 Resident Activity Tracking Resident Involvement: Resident Care Provided Care Provided: Adult Hospital Medicine
--- NOTE | 2021-05-08 17:59 | Death Pronouncement Note ---
Date of Service May 08, 2021 Pronouncement Note Admission Date Admission Date: March 16, 2021 Contributing Factors (1) Metabolic encephalopathy: (2) Liver metastasis: (3) Small cell lung cancer in adult: (4) Tobacco dependence: (5) Lewy body dementia with behavioral disturbance: (6) Acute liver failure: (7) Elevated liver enzymes: Additional Data Attending physician: Markel Esteban DO
--- NOTE | 2021-05-08 18:08 | Discharge Summary ---
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 Patient was brought in today via EMS from home secondary to delirium, combativeness. The patient initially went to the dentist for concern for an infected tooth, upon radiologically imaging he became combative, argumentative. He was given a prescription for antibiotics per his x- but did not get them filled or started. Per the X- the patient has been becoming more combative and delirious over the past 2 weeks he has been incontinent of stool and urine as well. He has been having more hallucinations and seeing things around the house and in his food. This is consistent with his neurology appointment on 03/13/21. She thinks he may have a more yellow tint to his skin and eyes when directly asked about this. Overall the patient does not have a PCP, follows with [facility] neurology for Lewy body dementia with hallucinations. He was to start Nuplazid which he has not started yet per the as he was waiting for his labs to return. In the EMD the patient had routine lab draws performed which revealed which appears to be an acute elevation of his LFTs (no comparison since 2016)- AST 331, ALT 158, ALK phos 526, Ammonia 46.1, lipase normal. He subsequently underwent a ultrasound of the abdomen and pelvis- Diffuse heterogeneity of the liver with marginal nodularity. 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 Cirrhotic liver with fibrotic changes- also interpreted as a contracted gallbladder with cholelithiasis and trace pericholecystic fluid. CBD 7mm and discrete 2cm lesion of the left hepatic lobe. Upon return from CT scan patient became combative and delirious and was given Benadryl 25mg IV, Lorazepam 4 mg total. Patient did wake up for exam, he is encephalopathic but was cooperative. He does endorse abdominal pain in upper quadrants bilaterally, and unable to look at dentition. No lesions noted on lower legs or chest. Patient will be admitted for evaluation of his liver enzymes, will place on Unasyn for reported infected tooth, will send off hepatitis panel and EBV, CMV, CA 19. Obtain CXR for initial screening of lung broussard further imaging as warranted. Will consult gastroenterology. Unsure of his bipoloar history as this was noted in neurology note as remote history and he is not on any medications. COVID test on admission was: NEGATIVE Principal Diagnosis Discharge Exam Pupils nonreactive to light bilaterally. No carotid or radial pulse palpated. No heart sounds on auscultation. No respirations auscultated on exam. Patient pronounced . Discharge Data Allergies Allergy/AdvReac Type Severity Reaction Status Date / Time haloperidol Allergy Severe LETHARGIC Unverified 03/13/21 15:12 propranolol Allergy Unknown Verified 03/13/21 15:12 alprazolam AdvReac Unknown Verified 03/13/21 15:12 clonazepam AdvReac Unknown Verified 03/13/21 15:12 donepezil AdvReac Unknown Verified 03/13/21 15:12 fluvoxamine AdvReac Unknown Verified 03/13/21 15:12 hydroxyzine AdvReac Unknown Verified 03/13/21 15:12 lorazepam AdvReac Unknown Verified 03/13/21 15:12 oxcarbazepine AdvReac Unknown Verified 03/13/21 15:12 risperidone AdvReac Unknown Verified 03/13/21 15:12 tramadol AdvReac Unknown Verified 03/13/21 15:12 trihexyphenidyl AdvReac Unknown Verified 03/13/21 15:12 Consultations 03/16/21 18:47 ED Decision to Admit Stat 03/16/21 21:56 Consult Gastroenterology Routine 03/17/21 10:44 Consult Pulmonology Routine 03/17/21 11:02 Consult Palliative Care Routine 03/17/21 12:41 Consult Oncology Routine 03/17/21 13:06 Consult Radiology Routine 04/28/21 10:19 Consult Ethics Routine Procedures Performed Operation Date: 03/17/21 08:20 <No data on this case meets the specified criteria> Ordered Studies 03/16/21 13:10 CT head/brain wo con Stat 03/16/21 14:18 US abdomen limited Stat 03/16/21 21:23 CT abd pelvis wo con Routine CT chest diagnostic wo con Routine 03/17/21 13:19 US FNA w/img 1st lesion Urgent Hospital Course (1) Metabolic encephalopathy: 61 yo M w/ pMHx. of metastatic small cell carcinoma, Lewy body dementia, and acute liver failure presenting with worsening mental status and transitioned to palliative care, awaiting placement. Metastatic disease: Supraclavicular node biopsy with findings of metastatic small cell carcinoma with likely liver metastasis - palliative care consulted - transitioned to comfort measures -On morphine drip -Ativan IV as needed every 4 hours -Due to fall, seizure mats were added for injury prevention. Metabolic encephalopathy: Acute metabolic encephalopathy from his metastatic disease and liver infiltrate with unclear baseline dementia. - continue frequent reorientation Elevated liver enzymes: appears related to metastatic disease - no longer trending labs Lewy body dementia with behavioral disturbance: - supportive care, calm environment Infected tooth: - no apparent pain today DVT: SCD's Diet: low fat, low fiber, Pureed Code: DNR/DNI Dispo: . Prior to passing goal was comfort and for placement once possible, does not sound like home situation would be safe or conducive to care in discussion with ex-. PT and OT rec. 31/12 care - centre care may take a week, looking at [facility], [place], [place]. Difficulty is in getting a covid vaccine at the hospital so that he may be placed at 1 of these facilities. Approval was given by his ex-, however, we do not have the means to give him the vaccine in the hospital at this time. Discussed [facility] as the best choice for him as it will give him full vaccination status the quickest. (2) Liver metastasis: (3) Small cell lung cancer in adult: (4) Tobacco dependence: (5) Lewy body dementia with behavioral disturbance: (6) Acute liver failure: (7) Elevated liver enzymes: Total Time Total Time Spent Total Time Spent (In Minutes): 30 Discharge Plan Discharge Items Patient Disposition: Other Date/Time: 05/08/21 17:35 Supervising Physician Co-Signing Physician Notes I also saw the patient earlier in the day before his pronouncement. Please see my attestation in the daily progress note of the same date.
== END 2021-05-08 18:24 | disposition expired | DRG 987 ==
LOC: ED 12:10 → 3N 19:01 → SUATTDRO 19:01 → 3N 21:16 → 3E 04-05 23:54